=== PATIENT | female | born 1965 | race Caucasian/White ===

== ENCOUNTER 2024-02-11 20:37 | Inpatient (IN) | payer OTHER, SELFPAY ==
--- NOTE | ~2024-02-11 | CT_ITS ---
EXAMINATION: CT HEAD WITHOUT CONTRAST (STROKE PROTOCOL) CLINICAL INFORMATION: Stroke protocol. AMS. COMPARISON: Previous images at [facility] and not available for comparison. TECHNIQUE: Contiguous axial imaging was performed from the skull base to vertex without intravenous administration of contrast. This CT examination was performed using dose optimization techniques as appropriate, variously including the following: *Automated exposure control *Adjustment of mA and/or kV according to patient size (this includes techniques or standardized protocols for targeted exams where dose is matched to indication/reason for exam; i.e. extremities or head) *Use of iterative reconstruction technique DLP: 860 mGy-cm FINDINGS: There is no acute intra-axial, extra axial bleed, masses or midline shift. There is a right frontal lobe deep white matter edema suspicious for underlying lesion. A ischemic event is considered less likely. The ruiz to white matter differentiation is maintained normal. No midline shift. The lateral ventricles are symmetrical in size but moderately enlarged. There is anterior falx calcification present. Bone windows reveal no calvarial abnormality. There is no scalp soft tissue abnormality. Bilateral paranasal sinuses and mastoid air cells are well-aerated. The soft tissues are unremarkable. CT/CT head for stroke IMPRESSION: 1. Right frontal lobe deep white matter edema suspicious for underlying lesion. Recommend CT with contrast or/MRI brain with and without contrast for further evaluation. 2. No acute bleed seen. 3. Moderate cerebral volume loss. This critical result was discussed with Dr. Daren Ray at 9:36 PM on 02/11/2024. It was ascertained that the content and urgency of the report was understood at the time of direct communication.
[2024-02-11 20:50] VITALS: BP 144/82; PULSE 86; O2SAT 98
[2024-02-11 20:56] VITALS: BP 144/75; PULSE 77; RESP 17; TEMP 37.7; O2SAT 95
[2024-02-11 20:59] VITALS: BMI 48.8
--- NOTE | 2024-02-11 21:10 | ECG_ITS ---
Test Reason : WEAKNESS Blood Pressure : / mmHG Vent. Rate : 076 BPM Atrial Rate : 076 BPM P-R Int : 168 ms QRS Dur : 104 ms QT Int : 394 ms P-R-T Axes : 053 007 020 degrees QTc Int : 443 ms Normal sinus rhythm Moderate voltage criteria for LVH, may be normal variant ( R in aVL , Hugo product ) Borderline ECG No previous ECGs available Referred By: Flor Mercedes Electronically Signed By:Espinoza Newell
[2024-02-11 21:41] LABS: Glucose, Whole Blood 113 mg/dL (60-115)
--- NOTE | 2024-02-11 21:48 | ED.WEAKNESS ---
HPI - Weakness General Chief complaint: Weakness Stated complaint: weakness Time Seen by Provider: 02/11/24 21:03 History of Present Illness HPI Narrative: Patient is a 58-year-old female with a history of stroke 3 weeks ago. Also worked up for a possible mass. Patient has been on Plavix for the last 3 weeks. Stopped 3 days ago as she was scheduled to get a biopsy done tomorrow. Patient has been noticing over the last 2-3 weeks increasing weakness over the left side. Sliding off from bed. Generalized malaise. Not quite right. Having headaches. Having episodes of nausea vomiting. Patient presented to the emergency department for further evaluation. There is no fever no chills. There is increased weakness on the left side. Patient is from home. Currently not on steroids. Related Data Home Medications ?Medication ?Instructions ?Recorded ?Confirmed atenolol 100 mg tablet 100 mg PO DAILY 02/12/24 02/12/24 atorvastatin 80 mg tablet 80 mg PO DAILY 02/12/24 02/12/24 hydrochlorothiazide 12.5 mg tablet 12.5 mg PO DAILY 02/12/24 02/12/24 Allergies Allergy/AdvReac Type Severity Reaction Status Date / Time No Known Allergies Allergy Verified 02/11/24 21:03 Review of Systems Review of Systems: Positive left-sided weakness Yes all other systems are reviewed and are negative PMFSH Past Medical History Attestation statement: The following information was validated with the patient. Social History Social History Alcohol intake: current Alcohol intake frequency: holidays/special occasions only Smoked in Last 30 Days: No Use of substances other than those prescribed or required for medical reasons: Yes Substance Use Type: Marijuana Substance Use Frequency: Occasionally Advance Directives: No Advance Directives Information Provided: No Patient : No Physical Exam Vital Signs: Vital Signs: Last Vital Signs Temp 99.4 F 02/12/24 00:30 Pulse 75 02/12/24 00:30 Resp 14 02/12/24 00:30 BP 122/63 02/12/24 00:30 Pulse Ox 95 02/12/24 00:30 O2 Del Method Room Air 02/12/24 00:30 BMI result Body Mass Index 48.8 Appearance: Alert. Oriented X3. No acute distress. Eyes: Pupils equal, round and reactive to light. ENT: Pharynx normal. Neck: Normal inspection. Neck supple. No lymph nodes noted. No crepitus CVS: Normal heart rate and rhythm. Pulses normal. Normal S1 and S2 Respiratory: No respiratory distress. Breath sounds normal. No Wheezing. No rales Abdomen: Soft and nontender. No rigidity. No distention. good BS x4 Skin: Skin warm and dry. Normal skin color. Normal skin turgor. Extremities: No lower extremity edema. Neurovascular intact to all extremities. No Lacerations. No Rash. Neuro: Oriented X 3. No motor deficit. No sensory deficit. Moving all extermities. No slurred speech. No drift noted. Medications Administered Discontinued Medications Generic Name Dose Route Start Last Admin Trade Name Freq PRN Reason Stop Dose Admin Ondansetron HCl 4 mg 02/11/24 21:13 02/11/24 22:04 Ondansetron Hcl 4 Mg/2 Ml Vial IVPUSH 02/11/24 21:14 4 mg ONCE ONE Administration Medical Decision Making Medical Decision Making [facility] Narrative: Patient is 58-year-old female with a history of having an intracranial mass. History of having a stroke approximately 3 weeks ago. Currently not on blood thinners patient stopped her Plavix approximately 2 days ago. She is due to get a biopsy of the intracranial mass at [facility]. But now noticing increasing weakness some mild coughing some generalized malaise unable to get up from bed feels like she is sliding off on the left side. CT scan of the head was done. My interpretation showed no bleeding. Radiology's interpretation showed a mass in the right frontal area. Some edema noted. The finding was discussed with patient has no surgical team at [facility]. The PA on-call Moy reviewed the CT scan today compared to the CT scan from 2 weeks ago. It is essentially unchanged. Fell patient does not have an acute neurosurgical issue. Does not want patient to get steroid at this point as patient is due for a biopsy in 2 days. Worry that the steroid would affect possible lymphoma. Patient's feel somewhat warm. Had some coughing nonspecific complaints. COVID test was done. It came back positive. Likely cause of patient's weakness getting worse. Given patient's state patient's hemoglobin is baseline. O2 sat is normal no evidence for hypoglycemia she is vaccinated for COVID. Her chemistry is normal. Her troponin is negative. My interpretation of patient's EKG showed a sinus rhythm heart rate is 80 FL QRS QTC normal no acute ST segment elevation. Had a long discussion with patient. Will admit patient for observation overnight. Although patient is not hypoxic she is very weak she is unable to care for self she is weakness more on left side likely resulting from the COVID and the viral infection. Differential Diagnosis Differential Diagnoses: The differential diagnosis associated with the presentation includes COVID, CVA, UTI Admission/Observation Consideration of admission/observation: Escalation of care including admission/observation considered Consult Healthcare Provider Management of the patient was discussed with: Hospitalist and Diesel Lube Tech (No surgery at [facility]) Lab Data MDM Lab Attestation statement: I reviewed the patient's lab results. 02/11/24 21:55 02/11/24 21:55 Labs: Lab Results 02/11/24 02/11/24 Range/Units 21:38 21:55 WBC 8.3 (4.8-10.8) X10*3/uL RBC 3.95 L (4.20-5.50) X10*6/uL Hgb 11.9 L (12.0-16.0) g/dl Hct 34.3 L (37.0-47.0) % MCV 86.8 (80.0-98.0) fL MCH 30.1 (27.0-33.0) pg MCHC 34.7 (31.0-35.0) g/dl RDW 13.6 (11.0-16.0) % Plt Count 220 (160-400) X10*3/uL MPV 10.4 (9.4-12.3) fL Immature Gran % (Auto) 0.4 (0.0-0.4) % Neut % (Auto) 79.8 H (45-73) % Lymph % (Auto) 8.5 L (20-40) % [place] % (Auto) 10.8 (2-11) % Eos % (Auto) 0.0 (0-4) % Baso % (Auto) 0.5 (0-2) % Lymph # (Auto) 0.7 L (1.2-4.9) X10*3/uL [place] # (Auto) 0.9 (0.1-1.2) X10*3/uL Eos # (Auto) 0.0 (0.0-0.4) X10*3/uL Baso # (Auto) 0.0 (0.0-0.2) X10*3/uL Abs Immat Gran (auto) 0.03 (0.00-0.03) X10*3/uL Absolute Neuts (auto) 6.6 (2.0-8.3) x10*3/uL Absolute Nucleated RBC 0.000 (0.0-0.012) X10*3/uL Nucleated RBC % (auto) 0.0 (0.0-0.2) /100WBC PT 13.6 H (11.1-13.3) SEC INR 1.1 (0.9-1.1) APTT 29.2 (26.0-36.8) SEC Sodium 132 L (135-145) mmol/L Potassium 3.3 (3.3-5.1) mmol/L Chloride 96 (96-108) mmol/L Carbon Dioxide 25 (22-29) mmol/L Anion Gap 14 (12-20) BUN 13 (9-16) mg/dL Creatinine 0.86 (0.5-1.4) mg/dL Estim Creat Clear Calc 99.3 Estimated GFR > 60 POC Glucose 113 (60-115) mg/dL Random Glucose 103 (60-115) mg/dL Calcium 9.5 (8.4-10.2) mg/dL Total Creatine Kinase 102 (26-140) U/L Troponin I High Sens 5.2 (<3.5-17.0) ng/L Influenza Type A (PCR) NEGATIVE (Negative) Influenza Type B (PCR) NEGATIVE (Negative) RSV RNA Qual (PCR) NEGATIVE (Negative) SARS-CoV-2 RNA (RT-PCR) POSITIVE A (Negative) S. pyogenes GrpA KENIA Negative (Negative) Independent Interpretation I performed an independent interpretation of an: EKG (Please see above), Plain X-Ray and CT Scan (No bleeding) Radiology Impression Discussion of test interpretation with radiology: I have reviewed the radiologist's reading. Independent Historian Clinical information obtained from an independent historian. History obtained from or confirmed by: Spouse Chronic Conditions Patient?s care impacted by: Hypertension History of brain tumor history of CVA Discharge Plan Discharge Clinical Impression: COVID, Acute CVA (cerebrovascular accident) Patient Disposition: Admitted As Inpatient
[2024-02-11 22:01] LABS: MANUAL DIFF FLAG NO
[2024-02-11 22:03] LABS: Basophils Percent Auto 0.5 % (0-2); Hematocrit 34.3 % (37.0-47.0); Hemoglobin 11.9 g/dl (12.0-16.0); Imm Gran Abs Auto 0.03 X10*3/uL (0.00-0.03); Imm Gran Pct Auto 0.4 % (0.0-0.4); Lymphocytes Absolute Auto 0.7 X10*3/uL (1.2-4.9); Lymphocytes Percent Auto 8.5 % (20-40); Mean Corpuscular HGB Conc 34.7 g/dl (31.0-35.0); Mean Corpuscular Hemoglobin 30.1 pg (27.0-33.0); Mean Corpuscular Volume 86.8 fL (80.0-98.0); Mean Platelet Volume 10.4 fL (9.4-12.3); Monocytes Absolute Auto 0.9 X10*3/uL (0.1-1.2); Monocytes Percent Auto 10.8 % (2-11); Neutrophils Absolute Auto 6.6 x10*3/uL (2.0-8.3); Neutrophils Percent Auto 79.8 % (45-73); Platelet Count 220 X10*3/uL (160-400); Red Blood Count 3.95 X10*6/uL (4.20-5.50); Red Cell Distribution Width 13.6 % (11.0-16.0); White Blood Count 8.3 X10*3/uL (4.8-10.8)
[2024-02-11] MEDS: ondansetron HCL 4 MG/2 ML VIAL IVPUSH (22:04)
[2024-02-11 22:09] LABS: IDNOW Serial# 58CA691E; Strep A Nucleic Acid Negative (Negative)
[2024-02-11 22:10] LABS: INTERNATIONAL NORM RATIO 1.1 (0.9-1.1); Prothrombin Time 13.6 SEC (11.1-13.3)
[2024-02-11 22:13] LABS: Partial Thromboplastin Time 29.2 SEC (26.0-36.8); Stroke Lab Use COMPLETE
[2024-02-11 22:20] LABS: Anion Gap 14 (12-20); Blood Urea Nitrogen 13 mg/dL (9-16); Calcium 9.5 mg/dL (8.4-10.2); Carbon Dioxide 25 mmol/L (22-29); Chloride 96 mmol/L (96-108); Creatinine Clr Calc Pharmacy 99.3; Estimated Glomerular Filt Rate > 60; Glucose Random 103 mg/dL (60-115); Potassium 3.3 mmol/L (3.3-5.1); Sodium 132 mmol/L (135-145)
[2024-02-11 22:26] LABS: Troponin-I High Sensitivity 5.2 ng/L (<3.5-17.0)
[2024-02-11 22:39] LABS: Influenza A PCR NEGATIVE (Negative); Influenza B PCR NEGATIVE (Negative); Resp Syncy Virus RNA Qual PCR NEGATIVE (Negative); SARS COV2 PCR INHOUSE POSITIVE (Negative)
[2024-02-12 00:30] VITALS: BP 122/63; PULSE 75; RESP 14; TEMP 37.4; O2SAT 95
--- NOTE | 2024-02-12 01:08 | P.HPHOSP_ITS ---
History of Present Illness Date of Service: 02/12/24 Attending physician on admission: Edwin Mendoza Chief Complaint: Worsening left-sided weakness Corine Macedo 58 years old woman with past medical history significant for morbid obesity, essential hypertension and hyperlipidemia was brought to the ED via EMS due to worsening left-sided weakness to the point that now she is dragging her left leg. She also complained of mild headache. She has been vomiting but she attributes did to the ambulance ride. Denied acute visual disturbances, tingling or dizziness. She did not report any acute speech difficulty. She was recently prescribed to take Plavix and aspirin but stopped it 2 days ago and she is going to undergo brain biopsy. According to patient, about 3 weeks ago, she was recently diagnosed with stroke and was found to have a brain tumor at [facility] and scheduled to have a biopsy this Monday. Patient did not report any acute cardiopulmonary, genitourinary or gastrointestinal symptoms (except for nausea and vomiting). Patient denied tobacco smoking, alcohol abuse or illicit drug use. In the ED, she was found to have normal vital signs. CBC is remarkable for anemia, 11.9. There is no leukocytosis and platelets are normal. There is hyponatremia 132. Other electrolytes are normal. Renal renal function is normal and troponin is negative. Head CT scan without contrast showed right frontal lobe deep white matter edema suspicious for underlying lesion. There is no intracranial bleeding. ECG showed normal sinus rhythm without ischemic changes. Viral testing is positive for COVID-19. ED tx: Zofran 4 mg IV. Decadron 10 mg IV. Review of Systems 2 Review of Systems: All 12 systems were reviewed and normal except as noted in HPI. [facility] Medical History (Updated 02/12/24 @ 01:35 by Edwin Mendoza MD) Brain tumor Hyperlipidemia Essential hypertension Morbid obesity Social History Alcohol intake: current Alcohol intake frequency: holidays/special occasions only Smoked in Last 30 Days: No Use of substances other than those prescribed or required for medical reasons: Yes Substance Use Type: Marijuana Substance Use Frequency: Occasionally Advance Directives: No Advance Directives Information Provided: No Patient : No Meds Allergies Allergy/AdvReac Type Severity Reaction Status Date / Time No Known Allergies Allergy Verified 02/11/24 21:03 Active Medications: Current Medications Acetaminophen (Acetaminophen 325 Mg Tablet) 975 mg PO Q6H PRN PRN Reason: mild pain, headache or fever Atenolol (Atenolol 100 Mg Tablet) 100 mg PO DAILY [facility]; Protocol Atorvastatin Calcium (Atorvastatin Calcium 80 Mg Tablet) 80 mg PO DAILY [facility] Hydrochlorothiazide (Hydrochlorothiazide 12.5 Mg Tablet) 12.5 mg PO DAILY [facility]; Protocol Sodium Chloride (Ns) 500 mls @ 500 mls/hr IV .Q1H [facility] Stop: 02/12/24 01:44 Ondansetron HCl (Ondansetron Hcl 4 Mg/2 Ml Vial) 4 mg IVPUSH Q4H PRN PRN Reason: Nausea and Vomiting Sodium Chloride (0.9 % Sodium Chloride Flush 3 Ml Syringe) 3 ml IVFLUSH QSHIFT [facility] Home Medications ?Medication ?Instructions ?Recorded ?Confirmed ?Last Taken ?Type atenolol 100 mg tablet 100 mg PO DAILY 02/12/24 02/12/24 Unknown History atorvastatin 80 mg tablet 80 mg PO DAILY 02/12/24 02/12/24 Unknown History hydrochlorothiazide 12.5 mg tablet 12.5 mg PO DAILY 02/12/24 02/12/24 Unknown History Physical Exam 2 Vital Signs and Narrative: Vital Signs: Last Vital Signs Temp 99.4 F 02/12/24 00:30 Pulse 75 02/12/24 00:30 Resp 14 02/12/24 00:30 BP 122/63 02/12/24 00:30 Pulse Ox 95 02/12/24 00:30 O2 Del Method Room Air 02/12/24 00:30 BMI result Body Mass Index 48.8 Results Labs 02/11/24 21:55 02/11/24 21:55 Labs: Laboratory Results - last 24 hr 02/11/24 02/11/24 21:38 21:55 MCV 86.8 MCH 30.1 MCHC 34.7 RDW 13.6 Plt Count 220 MPV 10.4 Immature Gran % (Auto) 0.4 Neut % (Auto) 79.8 H Lymph % (Auto) 8.5 L [place] % (Auto) 10.8 Eos % (Auto) 0.0 Baso % (Auto) 0.5 Lymph # (Auto) 0.7 L [place] # (Auto) 0.9 Eos # (Auto) 0.0 Baso # (Auto) 0.0 Abs Immat Gran (auto) 0.03 Absolute Neuts (auto) 6.6 Absolute Nucleated RBC 0.000 Nucleated RBC % (auto) 0.0 PT 13.6 H INR 1.1 APTT 29.2 Anion Gap 14 Estim Creat Clear Calc 99.3 Estimated GFR > 60 POC Glucose 113 Random Glucose 103 Calcium 9.5 Total Creatine Kinase 102 Troponin I High Sens 5.2 Influenza Type A (PCR) NEGATIVE Influenza Type B (PCR) NEGATIVE RSV RNA Qual (PCR) NEGATIVE SARS-CoV-2 RNA (RT-PCR) POSITIVE A S. pyogenes GrpA KENIA Negative Imaging Radiologist's Impressions: Impressions Head CT 02/11/24 21:18 IMPRESSION: 1. Right frontal lobe deep white matter edema suspicious for underlying lesion. Recommend CT with contrast or/MRI brain with and without contrast for further evaluation. 2. No acute bleed seen. 3. Moderate cerebral volume loss. This critical result was discussed with Dr. Daren Ray at 9:36 PM on 02/11/2024. It was ascertained that the content and urgency of the report was understood at the time of direct communication. Assessment and Plan (1) COVID: Status: Acute (2) Left-sided weakness: Status: Acute (3) Nausea and vomiting: Qualifiers: Vomiting type: unspecified Qualified Code(s): R11.2 - Nausea with vomiting, unspecified Status: Acute Plan Corine Macedo 58 y/o woman admitted with: * Worsening left-sided weakness likely secondary to brain mass. Keeping observation. Neuro checks. Oncology and Neurology consult. According to ED provider case has been discussed with neurosurgery service at [facility] (ANUEL Gallardo; patient's neurosurgeon is Dr. Lilly) and no surgical interventions or medication recommended given. Brain biopsy might be delayed as the patient is now COVID positive. * Nausea and vomiting, motion sickness while gettting her ride in the ambulance (no symptoms prior to this). Zofran IV as needed. Gentle hydration. * Mild hyponatremia. Likely secondary to above. Gentle IV fluids. Continue to monitor Na+ level. * COVID positive. No respiratory issues. * Essential hypertension. Continue atenolol. * Hyperlipidemia. Continue statin (pt hasn't started yet but it has been prescribed). * Stroke, recent diagnosis. Plavix and aspirin on hold due to plan brain biopsy. Continue statin. * Morbid obesity. BMI 48.8 kg/m2. Weight loss. Code status: Full DVT prophylaxis: SCDs Quality Stroke Does the patient have a stroke diagnosis?: No VTE Prior VTE?: No VTE Risk Level:: Medical - moderate - high VTE Device Contraindication: N/A - Device Ordered VTE Drug Contraindication: Treatment Not Indicated
[2024-02-12] MEDS: Acetaminophen 325 MG TABLET 975 MG PO ×3 (01:18→21:05)
[2024-02-12] MEDS: 0.9 % Sodium Chloride 500 ML IV (01:21)
--- NOTE | 2024-02-12 04:18 | PC.NURSE ---
COVID +, weak on L side. purewick in place pt unsure if she will use it, may ask for help to commode instead. resting comfortably, mild headache
[2024-02-12 05:50] VITALS: PULSE 66
[2024-02-12 05:50] LABS: Basophils Percent Auto 0.4 % (0-2); Eosinophils Percent Auto 0.1 % (0-4); Hematocrit 32.5 % (37.0-47.0); Hemoglobin 11.2 g/dl (12.0-16.0); Imm Gran Abs Auto 0.03 X10*3/uL (0.00-0.03); Imm Gran Pct Auto 0.4 % (0.0-0.4); Lymphocytes Absolute Auto 1.6 X10*3/uL (1.2-4.9); Lymphocytes Percent Auto 20.9 % (20-40); MANUAL DIFF FLAG NO; Mean Corpuscular HGB Conc 34.5 g/dl (31.0-35.0); Mean Corpuscular Hemoglobin 30.3 pg (27.0-33.0); Mean Corpuscular Volume 87.8 fL (80.0-98.0); Mean Platelet Volume 10.9 fL (9.4-12.3); Monocytes Absolute Auto 0.8 X10*3/uL (0.1-1.2); Monocytes Percent Auto 11.3 % (2-11); Neutrophils Percent Auto 66.9 % (45-73); Platelet Count 188 X10*3/uL (160-400); Red Cell Distribution Width 13.8 % (11.0-16.0); White Blood Count 7.4 X10*3/uL (4.8-10.8)
--- NOTE | 2024-02-12 06:16 | PC.NURSE ---
critical lab, K 2.9. aware
[2024-02-12 06:20] LABS: Anion Gap 15 (12-20); Blood Urea Nitrogen 13 mg/dL (9-16); Calcium 8.8 mg/dL (8.4-10.2); Carbon Dioxide 23 mmol/L (22-29); Chloride 97 mmol/L (96-108); Creatinine Clr Calc Pharmacy 98.2; Estimated Glomerular Filt Rate > 60; Glucose Random 77 mg/dL (60-115); Potassium 2.9 mmol/L (3.3-5.1); Sodium 132 mmol/L (135-145)
[2024-02-12] MEDS: Potassium Chloride Packet 20 MEQ PACKET 40 MEQ PO (06:29)
[2024-02-12] MEDS: atenoloL 100 MG TABLET PO (07:27)
[2024-02-12] MEDS: Atorvastatin Calcium 80 MG TABLET PO (07:27)
[2024-02-12] MEDS: hydroCHLOROthiazide 12.5 MG TABLET PO (07:27)
[2024-02-12] MEDS: 0.9 % Sodium Chloride Flush 3 ML SYRINGE IVFLUSH ×2 (07:28→14:52)
[2024-02-12 07:30] VITALS: BP 127/66; PULSE 70; RESP 20; TEMP 37; O2SAT 97
--- NOTE | 2024-02-12 07:43 | PC.NURSE ---
patient awake, alert and oriented. respirations even and unlabored. repositioned in bed, medicated per the MAR. call clinton within reach.
[2024-02-12 09:25] LABS: Potassium 3.5 mmol/L (3.3-5.1)
--- NOTE | 2024-02-12 09:37 | MHC.CM.PN ---
Katerina 02/12/24, Pt lives with her , she will complete HCP form here naming him. She does not currently have home care services, and would like to have help at home. Task submitted for [facility]. PCP: Cathryn Quinones, in [facility]. DCP is home with services. CM to follow and assist with planning needs.
--- NOTE | 2024-02-12 10:23 | PHA.MEDREC ---
Addendum entered by Amina Salgado 02/12/24 10:36: With Clopidigrel 75mg tabs, the patient was instructed to stop the medications 7 days prior to having the biopsy. Also with the patient taking the atorvastatin 40mg the patient was taking two 40mg tabs for the total of 80mg's daily. Original Note: Pharmacy Consult ? Medication Reconciliation Pharmacy has completed the medication reconciliation. Patient was taking Clopidigrel 75mg tabs and due to a biopsy she was going to receive she stopped them 02/09/24. Also patient was recently changed from atorvastatin 40mg to atorvastatin 80mg. Patient had not picked up new script for the 80mg and was using the rest of the 40mg tabs up and ran out 02/09/24.
--- NOTE | 2024-02-12 10:49 | P.CNNE_ITS ---
History of Present Illness Data of Consult Service Date: 02/12/24 Primary Care Provider: Unknown Physician HPI Reason for consult: Brain lesion 58 years old woman who recently started complaining of left-sided numbness and was diagnosed with a right frontal mass. Apparently she was going to have biopsy for this mass and couple of days but while at home she fell down and was brought to emergency room. She had stopped taking anti-platelet agents in preparation for this biopsy but in emergency room a routine test showed that she was positive for COVID, though she did not have any significant symptoms suggestive of COVID, surgical procedure was postponed. She was in [facility] emergency room now not sure what was going to happen as staff was trying to reach surgical team. There was no evidence of any seizure. Family stated that they could not take care of her at home. Review of Systems 2 Review of Systems: No recent cold or flu-like illness PMFSH Past Medical History Medical History (Updated 02/12/24 @ 01:35 by Edwin Mendoza MD) Brain tumor Hyperlipidemia Essential hypertension Morbid obesity Social History Social History Alcohol intake: current Alcohol intake frequency: holidays/special occasions only Patient Tobacco Use Status: Never used Tobacco Smoked in Last 30 Days: No Use of substances other than those prescribed or required for medical reasons: Yes Substance Use Type: Marijuana Substance Use Frequency: Occasionally Advance Directives: No Advance Directives Information Provided: No Nutrition Risks: No Nutritional Risk Patient : No service: No Meds Allergies Allergy/AdvReac Type Severity Reaction Status Date / Time No Known Allergies Allergy Verified 02/11/24 21:03 Active Medications: Current Medications Acetaminophen (Acetaminophen 325 Mg Tablet) 975 mg PO Q6H PRN PRN Reason: mild pain, headache or fever Last Admin: 02/12/24 01:18 Dose: 975 mg Atenolol (Atenolol 100 Mg Tablet) 100 mg PO DAILY [facility]; Protocol Last Admin: 02/12/24 07:27 Dose: 100 mg Atorvastatin Calcium (Atorvastatin Calcium 80 Mg Tablet) 80 mg PO DAILY [facility] Last Admin: 02/12/24 07:27 Dose: 80 mg Omeprazole (Omeprazole 20 Mg Capsule.Dr) 20 mg PO DAILY@0630 [facility] Ondansetron HCl (Ondansetron Hcl 4 Mg/2 Ml Vial) 4 mg IVPUSH Q4H PRN PRN Reason: Nausea and Vomiting Sodium Chloride (0.9 % Sodium Chloride Flush 3 Ml Syringe) [facility] Last Admin: 02/12/24 07:28 Dose: 3 ml Home Medications ?Medication ?Instructions ?Recorded ?Confirmed ?Last Taken ?Type acetaminophen 650 mg 650 mg PO QD-BID PRN Pain 02/12/24 02/12/24 Unknown History tablet,extended release (Tylenol Arthritis Pain) atenolol 100 mg tablet 100 mg PO DAILY 02/12/24 02/12/24 Unknown History atorvastatin 80 mg tablet 80 mg PO DAILY 02/12/24 02/12/24 02/09/24 History bupropion HCl 300 mg 24 hr tablet, 300 mg PO DAILY 02/12/24 02/12/24 Unknown History extended release clopidogrel 75 mg tablet 75 mg PO DAILY 02/12/24 02/12/24 02/09/24 History hydrochlorothiazide 12.5 mg tablet 12.5 mg PO DAILY 02/12/24 02/12/24 Unknown History irbesartan 300 mg tablet 300 mg PO DAILY 02/12/24 02/12/24 Unknown History omeprazole 20 mg capsule,delayed 20 mg PO DAILY 02/12/24 02/12/24 Unknown History release Physical Exam 2 Vital Signs: Vital Signs: Last Vital Signs Temp 99.4 F 02/12/24 00:30 Pulse 70 02/12/24 07:30 Resp 20 02/12/24 07:30 BP 127/66 02/12/24 07:30 Pulse Ox 97 02/12/24 07:30 O2 Del Method Room Air 02/12/24 07:30 BMI result Body Mass Index 48.8 Neuro: Other: She is alert and awake with normal spontaneity of speech fluency comprehension and affect. Face is symmetrical. There is mild left hemiparesis with left extensor plantar. Results Labs 02/12/24 05:00 02/12/24 09:11 Labs: Short CBC 02/11/24 02/12/24 Range/Units 21:55 05:00 WBC 8.3 7.4 (4.8-10.8) X10*3/uL Hgb 11.9 L 11.2 L (12.0-16.0) g/dl Hct 34.3 L 32.5 L (37.0-47.0) % Plt Count 220 188 (160-400) X10*3/uL BMP 02/11/24 02/12/24 02/12/24 21:55 05:00 09:11 Sodium 132 L 132 L Potassium 3.3 2.9 L* 3.5 D Chloride 96 97 Carbon Dioxide 25 23 BUN 13 13 Creatinine 0.86 0.87 Calcium 9.5 8.8 D Cardiac Enzymes 02/11/24 Range/Units 21:55 Total Creatine Kinase 102 (26-140) U/L Noncontrast head CT revealed a mixed density right frontal mass suggestive of vasogenic edema. Assessment and Plan (1) Left-sided weakness: Status: Acute 58 years old woman with new diagnosis of right frontal mass, which was going to be biopsied in couple of days but she fell at home and was brought to emergency room. Routine COVID test was positive and probably surgery has been postponed. Her surgeon told her that they did not want to treat her with prednisone until this biopsy was done. My recommendation would be to contact the surgical team and asked about definitive plan. In the meantime PT OT consultation is recommended to figure out right course of action and place for her until this procedure is done and proper diagnosis is made. For now, I would hold prednisone or any other specific medicine. Anti-platelet agents not require at this time. Procedures Date of Service Date of Service: 02/12/24
--- NOTE | 2024-02-12 11:24 | PC.NURSE ---
patient had purewick in place, unable to void at this time. three person assist onto the commode. left sided weakness from previous stroke
[2024-02-12] MEDS: Potassium Chloride ER 20 MEQ TAB.ER.PRT 40 MEQ PO (11:48)
[2024-02-12 12:01] LABS: Appearance Urine Clear; Color Urine Yellow; Glucose Urine UA Negative (Negative); Leukocyte Esterase Urine Negative (Negative); Nitrite Urine Negative (Negative); Specific Gravity - Urine 1.015 (1.005-1.025); Urine Blood Negative (Negative); Urine Ketones Negative (Negative); Urine Protein Negative (Neg-Trace)
--- NOTE | 2024-02-12 12:01 | PC.NURSE ---
medicated per the MAR, patient assisted back into bed. approx 400mL urine output.
[2024-02-12 12:04] LABS: Bacteria Urine None Seen (None Seen); Hyaline Casts Urine 0-2 /LPF (0-2); RBC Urine 0-2 /HPF (0-2); Squamous Epithelial Cell Urine 0-2 /HPF (0-2); WBC Urine 0-5 /HPF (0-5)
--- NOTE | 2024-02-12 14:29 | P.EN_ITS ---
Event Note Date of Service: 02/12/24 Event Note: 58-year-old female patient with past medical history of hypertension, hyperlipidemia recently diagnosed to have right frontal lobe mass, scheduled to undergo a brain biopsy by on 02/13 presented to [facility] due to worsening left-sided weakness, with difficulty in ambulation and dragging her left leg associated with mild headache she denied associated visual symptoms, speech impairment in the emergency room head CT without contrast showed right frontal lobe deep white matter edema suspicious for underlying lesion, Chip use unremarkable viral testing was positive for COVID-19 At present patient continued to have left-sided weakness she denies headache no nausea no vomiting or dizziness MRI brain report reviewed from [facility] [place] that showed a lobular intra-axial enhancing mass within the right frontal lobe with surrounding edema and mild mass affect , concerning for highly cellular/high-grade tumor differential included lymphoma and glioblastoma, correlation with tissue diagnosis is recommended Placed a phone call to doctors [facility] office and left a message to discuss plan for biopsy Case discussed with neurologist Dr. Ruiz will hold aspirin, Plavix and steroids Avoid hypotension Patient seen by Physical therapy they recommend acute rehab. Time Spent With Patient Time: Total time managing care of this patient today ____ minutes.
[2024-02-12 14:53] VITALS: BP 114/51; PULSE 67; RESP 18; TEMP 36.9; O2SAT 95
--- NOTE | 2024-02-12 16:50 | P.CNHO_ITS ---
Subjective - Subjective Chief complaint: Consult for: Brain tumor. Patient: new to practice Consult date: 02/12/24 Requesting Physician: Janette Primary Care Provider: Unknown Physician Family Provider: Unknown. Medical Summary: DIAGNOSIS: NEW BRAIN TUMOR. HPI - Consult Narrative Reason for consult: Consult for: Brain tumor. Narrative: Corine Macedo is a 58 year old unfortunately lady admitted after a fall. She was brought to the ED via EMS due to worsening left-sided weakness, to the extent that she was dragging her left leg. She also complained of mild headache. She has had vomiting but she attributed did to the ambulance ride. Denied acute visual disturbances, tingling or dizziness. No acute speech difficulty. She was recently prescribed Plavix and aspirin but stopped it 2 days ago as she was supposed to undergo brain biopsy. According to patient, about 3 weeks ago, she was diagnosed with a stroke . Was actually found to have a brain tumor. This was at [facility]. She was scheduled to have a biopsy this Monday. She did not report any acute cardiopulmonary, genitourinary or gastrointestinal symptoms. (except for nausea and vomiting). Patient denied tobacco smoking, alcohol abuse or illicit drug use. Here, she was found to have normal vital signs. CBC is remarkable for anemia, 11.9. There is no leukocytosis and platelets are normal. There is hyponatremia 132. Other electrolytes are normal. Renal renal function is normal and troponin is negative. Head CT scan without contrast showed: 1. Right frontal lobe deep white matter edema suspicious for underlying lesion. Recommend CT with contrast or/MRI brain with and without contrast for further evaluation. 2. No acute bleed seen. 3. Moderate cerebral volume loss. ECG showed normal sinus rhythm without ischemic changes. Viral testing is positive for COVID-19. She was given: Zofran 4 mg IV. Decadron 10 mg IV. MRI brain report reviewed from [facility] that showed: A lobular intra-axial enhancing mass within the right frontal lobe with surrounding edema and mild mass affect , concerning for highly cellular/high- grade tumor differential included lymphoma and glioblastoma, correlation with tissue diagnosis is recommended. Review of Systems 2 Review of Systems: All 12 systems were reviewed and normal except as noted in HPI. [facility] Medical History: Essential hypertension Morbid obesity Brain tumor Hyperlipidemia Social History: Alcohol intake: current Alcohol intake frequency: holidays/special occasions only Smoked in Last 30 Days: No Use of substances other than those prescribed or required for medical reasons: Yes Substance Use Type: Marijuana Substance Use Frequency: Occasionally Review of Systems - Constitutional Reports system reviewed and no additional complaints, except as documented, Reports fatigue, Reports lack of energy, Reports malaise, Reports poor appetite, Reports weight loss - Eyes Reports system reviewed and no additional complaints, except as documented - ENT Reports system reviewed and no additional complaints, except as documented - Cardiovascular Reports system reviewed and no additional complaints, except as documented - Respiratory Reports no additional respiratory complaints - Gastrointestinal Reports system reviewed and no additional complaints, except as documented - Genitourinary Reports no additional female genitourinary complaints - Musculoskeletal Reports system reviewed and no additional complaints, except as documented - Integumentary/Breasts Skin/Breast: Reports no additional skin complaints - Neurologic Reports system reviewed and no additional complaints, except as documented - Psychiatric Reports system reviewed and no additional complaints, except as documented - Endocrine Reports no additional endocrine complaints - Hematologic/Lymphatic Reports system reviewed and no additional complaints, except as documented - Allergic/Immunologic Reports system reviewed and no additional complaints, except as documented Oncology Screenings - ECOG Performance Status ECOG Performance Status: 2 [facility] Medical History: Medical History (Last Reviewed 02/13/24 @ 09:21 by MARY Gross) Brain tumor Essential hypertension Hyperlipidemia Morbid obesity Functional capacity: wheelchair bound Social History: Social History (Last Reviewed 02/11/24 @ 21:50 by Flor Mercedes MD) Living Situation History: Household Members: None Housing: Apartment Do you presently have visiting nurse or other home services: No Alcohol History Details: 1. How often do you have a drink containing alcohol?: b. Monthly or less AUDIT-C Alcohol total score: 1 Currently Displaying Signs/Symptoms of Alcohol Withdrawal: No Tobacco History: Patient Tobacco Use Status: Never used Tobacco Smoked in Last 30 Days: No Substance Use History: Use of substances other than those prescribed or required for medical reasons : Yes Substance Use Type: Marijuana Substance Use Frequency: Occasionally Last Used Substance: Days (ago) Currently Displaying Signs/Symptoms of Drug Intoxication Withdrawal: No Any prior treatment program specific to substance use: No Domestic Abuse History: Have you been hit, kicked, punched, or otherwise hurt by someone within the past year? If so, by whom?: No Do you feel safe in your current relationship?: Yes Is there a partner from a previous relationship who is making you feel unsafe now?: No Are you made to feel afraid or neglected: No Advance Directives: Advance Directives: No Advance Directives Information Provided: No Homicidal Assessment: Do you have a plan to hurt others: No Plan Nutrition Assessment: Recently lost weight without trying: No Eating poorly because of decreased appetite: No Nutrition Risks: No Nutritional Risk Patient : No : No Poor oral hygiene: No Occupation Assessmet: service: No Home Medications and Allergies Current Medications: Current Medications Acetaminophen (Acetaminophen 325 Mg Tablet) 975 mg PO Q6H PRN PRN Reason: mild pain, headache or fever Last Admin: 02/12/24 11:48 Dose: 975 mg Atenolol (Atenolol 100 Mg Tablet) 100 mg PO DAILY [facility]; Protocol Last Admin: 02/12/24 07:27 Dose: 100 mg Atorvastatin Calcium (Atorvastatin Calcium 80 Mg Tablet) 80 mg PO DAILY [facility] Last Admin: 02/12/24 07:27 Dose: 80 mg Omeprazole (Omeprazole 20 Mg Capsule.Dr) 20 mg PO DAILY@0630 [facility] Ondansetron HCl (Ondansetron Hcl 4 Mg/2 Ml Vial) 4 mg IVPUSH Q4H PRN PRN Reason: Nausea and Vomiting Sodium Chloride (0.9 % Sodium Chloride Flush 3 Ml Syringe) [facility] Last Admin: 02/12/24 14:52 Dose: 3 ml Home Medications ?Medication ?Instructions ?Recorded ?Confirmed ?Type acetaminophen 650 mg 650 mg PO QD-BID PRN Pain 02/12/24 02/12/24 History tablet,extended release (Tylenol Arthritis Pain) atenolol 100 mg tablet 100 mg PO DAILY 02/12/24 02/12/24 History atorvastatin 80 mg tablet 80 mg PO DAILY 02/12/24 02/12/24 History bupropion HCl 300 mg 24 hr tablet, 300 mg PO DAILY 02/12/24 02/12/24 History extended release clopidogrel 75 mg tablet 75 mg PO DAILY 02/12/24 02/12/24 History hydrochlorothiazide 12.5 mg tablet 12.5 mg PO DAILY 02/12/24 02/12/24 History irbesartan 300 mg tablet 300 mg PO DAILY 02/12/24 02/12/24 History omeprazole 20 mg capsule,delayed 20 mg PO DAILY 02/12/24 02/12/24 History release Allergies Allergy/AdvReac Type Severity Reaction Status Date / Time No Known Allergies Allergy Verified 02/11/24 21:03 Physical Exam Vital signs: Vital Signs Temp 98.5 F 02/12/24 14:53 Pulse 67 02/12/24 14:53 Resp 18 02/12/24 14:53 BP 114/51 L 02/12/24 14:53 Pulse Ox 95 02/12/24 14:53 O2 Del Method Room Air 02/12/24 14:53 Intake & Output 02/11/24 02/12/24 02/12/24 18:59 06:59 18:59 Intake Total 500 / 500 Balance 500 / 500 Intake: Intake, IV Amount 500 / 500 0.9 % Sodium Chloride 500 ml @ 500 / 500 500 mls/hr IV .Q1H SAIDA Rx#: [id number] Other: Weight 137.2 kg Weight 137.2 kg - Constitutional Present: moderate distress - Routine HEENT Exam Head: Present: normal inspection ENT: Present: mucous membranes moist - Routine Neck Exam Present: supple - Routine Respiratory Exam Present: CTAB - Routine Cardiovascular Exam Cardiovascular: Present: RRR, S1, S2 - Routine Abdominal Exam Present: soft, nontender - Routine Extremities Exam Present: nontender Hem/Onc Consult Result - Labs CBC & Chem 7: 02/12/24 05:00 02/18/24 07:44 Labs: Short CBC 02/11/24 02/12/24 Range/Units 21:55 05:00 WBC 8.3 7.4 (4.8-10.8) X10*3/uL Hgb 11.9 L 11.2 L (12.0-16.0) g/dl Hct 34.3 L 32.5 L (37.0-47.0) % Plt Count 220 188 (160-400) X10*3/uL BMP 02/11/24 02/12/24 02/12/24 21:55 05:00 09:11 Sodium 132 L 132 L Potassium 3.3 2.9 L* 3.5 D Chloride 96 97 Carbon Dioxide 25 23 BUN 13 13 Creatinine 0.86 0.87 Calcium 9.5 8.8 D Cardiac Enzymes 02/11/24 Range/Units 21:55 Total Creatine Kinase 102 (26-140) U/L Urine 05/20/24 Range/Units 11:54 Urine Color Yellow Urine Appearance Clear Urine pH 6.0 (5.0-9.0) Ur Specific [place] 1.015 (1.005-1.025) Urine Protein Negative (Neg-Trace) mg/dL Urine Glucose (UA) Negative (Negative) mg/dL Assessment and Plan Patient Active problem list reviewed?: Yes (1) Brain tumor Status: Acute Assessment and plan: This is an unfortunate 58-year-old lady who presented with left-sided zaid paresis. She has recently been diagnosed with a brain tumor. MRI brain report reviewed from [facility] that showed: A lobular intra-axial enhancing mass within the right frontal lobe with surrounding edema and mild mass affect, concerning for highly cellular/high- grade tumor differential included lymphoma and glioblastoma, correlation with tissue diagnosis is recommended. Actually the plan was for her to have a brain biopsy done on Monday by Dr. Lilly. She ended up coming in on account of generalized weakness. Here, she has been diagnosed with Covid 19 infection. So biopsy had to be delayed. At this point the aspirin Plavix and steroids are on hold. Since steroids may confound the results, if this is lymphoma, by partially treating it. PLAN: She is currently undergoing symptomatic management. She will go back to [facility] to see the neurosurgeon, for the biopsy, once she recovers here. Thank you for the consult, CC: Dr. hills. Dr. Savage. - Time Spent With Patient Time Spent with Patient (in minutes): 30
[2024-02-12 19:23] VITALS: BP 130/71; PULSE 72; RESP 16; TEMP 37; O2SAT 96
--- NOTE | 2024-02-12 20:19 | MHC.EDTECH ---
Pt assisted on and off bed felder. Full bedding change done, Pt cleaned up and repositioned. Call clinton within reach.
--- NOTE | 2024-02-12 21:08 | PC.NURSE ---
pt swallow screen passed at this time, pt medicated per nov for 6/10 headache, pt requesting tylenol at this time, tolerated well with water.
[2024-02-12 22:03] VITALS: BP 116/57; PULSE 77; RESP 14; TEMP 36.8; O2SAT 94
[2024-02-13] MEDS: 0.9 % Sodium Chloride Flush 3 ML SYRINGE IVFLUSH ×3 (00:51→15:13)
[2024-02-13 01:18] VITALS: BP 115/61; PULSE 67; RESP 12; TEMP 36.7; O2SAT 95
--- NOTE | 2024-02-13 04:57 | MHC.EDTECH ---
Pt assisted on and off bed felder- urinated and had bowel movement. Bedding change done, Pt cleaned and repositioned. Vital signs taken, call clinton within reach.
[2024-02-13 05:03] VITALS: BP 136/82; PULSE 67; RESP 15; TEMP 36.8; O2SAT 93
[2024-02-13] MEDS: Omeprazole 20 MG CAPSULE.DR PO (06:17)
[2024-02-13] MEDS: Acetaminophen 325 MG TABLET 975 MG PO ×2 (06:22→23:24)
[2024-02-13] MEDS: Atorvastatin Calcium 80 MG TABLET PO (09:01)
[2024-02-13] MEDS: atenoloL 100 MG TABLET PO (09:01)
--- NOTE | 2024-02-13 09:45 | PC.NURSE ---
this RN resumed care of pt at 0700. a&ox4. vss and up to date. neuros intact. pt c/o 12/02 headache - recently given prn medication. effectiveness pending. PT evaluated completed. recommendations provided. pt seen by admitting provider/aware of plan of care. no sob/wob noted. respirations even and unlabored. plan of care ongoing. call clinton placed within reach.
[2024-02-13 11:03] VITALS: BP 126/58; PULSE 58; RESP 16; TEMP 36.7; O2SAT 93
--- NOTE | 2024-02-13 11:07 | PC.NURSE ---
vss and up to date. nsr on the phototypesetting equipment monitor. pt requesting cough syrup/some sort of decongestant. admitting provider notified/aware. will administer when able. pt repositioned to comfort. plan of care ongoing. call clinton placed within reach.
[2024-02-13] MEDS: guaiFENesin DM 200/20/10 ML 10 ML SYRUP PO ×2 (12:44→23:24)
--- NOTE | 2024-02-13 13:02 | PC.NURSE ---
pt medicated w/ prn cough syrup. effectiveness pending. pt requesting to speak w/ admitting provider - provider notified.
--- NOTE | 2024-02-13 13:50 | MHC.CM.PN ---
Referrals out for acute rehab, currently waiting to hear if accepted at [facility]. Expanded search to include [facility], CM discussed this with pt and family and asked for their choices. CM will continue to follow and assist with DC planning.
--- NOTE | 2024-02-13 14:13 | HO.PM.IMPN ---
Subjective Subjective Date of Service: 02/13/24 Interval History: Offers no acute complaints has multiple concerns, whether she needs to be on blood thinners or not, should she be on steroids, denies shortness of breath, no cough, no headache, no dizziness, no worsening left-sided weakness tolerating diet, feels uncomfortable in ED bed. Review of Systems All other system reviewed and negative Physical Exam Vital Signs: Vital Signs: Last Vital Signs Temp 98.0 F 02/13/24 11:03 Pulse 58 02/13/24 11:03 Resp 16 02/13/24 11:03 BP 126/58 L 02/13/24 11:03 Pulse Ox 93 02/13/24 11:03 O2 Del Method Room Air 02/13/24 11:03 BMI result Body Mass Index 48.8 Const: Other: General awake alert x3,in no acute distress. Anicteric sclera Neck supple no JVD. CVS regular rate rhythm, Respiratory lungs clear to auscultation, no respiratory distress, no wheeze, no rhonchi. Gastrointestinal abdomen soft, obese, non tender, bowel sounds audible. Extremities no pitting edema. Neuro face symmetrical, speech clear, mild left upper and lower extremity weakness Skin no rash Psych appropriate affect Objective Data Active Medications Acetaminophen (Acetaminophen 325 Mg Tablet) 975 mg PO Q6H PRN PRN Reason: mild pain, headache or fever Last Admin: 02/13/24 06:22 Dose: 975 mg Documented By: AVNI Atenolol (Atenolol 100 Mg Tablet) 100 mg PO DAILY [facility]; Protocol Last Admin: 02/13/24 09:01 Dose: 100 mg Documented By: MARRY Atorvastatin Calcium (Atorvastatin Calcium 80 Mg Tablet) 80 mg PO DAILY [facility] Last Admin: 02/13/24 09:01 Dose: 80 mg Documented By: MARRY Guaifenesin/Dextromethorphan (Guaifenesin Dm 200/20/10 Ml 10 Ml Syrup) 10 ml PO Q6H PRN PRN Reason: cough Last Admin: 02/13/24 12:44 Dose: 10 ml Documented By: MARRY Omeprazole (Omeprazole 20 Mg Capsule.) 20 mg PO DAILY@0630 [facility] Last Admin: 02/13/24 06:17 Dose: 20 mg Documented By: HO.DIONS Ondansetron HCl (Ondansetron Hcl 4 Mg/2 Ml Vial) 4 mg IVPUSH Q4H PRN PRN Reason: Nausea and Vomiting Sodium Chloride (0.9 % Sodium Chloride Flush 3 Ml Syringe) 3 ml IVFLUSH QSHIFT [facility] Last Admin: 02/13/24 09:01 Dose: 3 ml Documented By: MARRY Labs 02/12/24 05:00 02/12/24 09:11 Assessment and Plan (1) Brain tumor: Status: Acute (2) Left-sided weakness: Status: Acute (3) COVID: Status: Acute Plan 58-year-old female patient with past medical history of hypertension, hyperlipidemia recently diagnosed to have right frontal lobe mass, scheduled to undergo a brain biopsy by on 02/13 presented to [facility] due to worsening left-sided weakness, with difficulty in ambulation and dragging her left leg associated with mild headache she denied associated visual symptoms, speech impairment in the emergency room head CT without contrast showed right frontal lobe deep white matter edema suspicious for underlying lesion, Chip use unremarkable viral testing was positive for COVID-19 Acute on chronic left-sided weakness Denies worsening symptoms,no headache,no nausea, no vomiting or dizziness. MRI brain report reviewed from [facility] that showed a lobular intra-axial enhancing mass within the right frontal lobe with surrounding edema and mild mass affect , concerning for highly cellular/high-grade tumor differential included lymphoma and glioblastoma, correlation with tissue diagnosis is recommended Being followed by [facility] Neurosurgery Dr Lilly, called office and left message to discuss plan for biopsy, waiting for call back, patient was scheduled for brain biopsy on 02/[address] Ruiz he recommend to hold aspirin, Plavix and steroids. Recommend outpatient follow-up with Dr. Lilly to reschedule biopsy. Seen by PT they recommend rehab. COVID-19 infection asymptomatic with no hypoxia, supportive care. Hypertension stable BP, continue atenolol, will hold hydrochlorothiazide and Arb losartan Avoid hypotension. Hyperlipidemia continue statin. Morbid obesity recommend low-calorie diet/continue PT. DVT prophylaxis Lovenox. Full code Patient need continued inpatient hospitalization for safe disposition to rehab facility Quality Stroke Does the patient have a stroke diagnosis?: No VTE Prior VTE?: No VTE Risk Level:: Medical - moderate - high VTE Device Contraindication: N/A - Device Ordered VTE Drug Contraindication: Treatment Not Indicated
[2024-02-13] MEDS: Enoxaparin Sodium 40 MG/0.4 ML SYRINGE SUBCUT (15:11)
[2024-02-13 16:02] VITALS: BP 127/62; PULSE 67; RESP 17; O2SAT 95
--- NOTE | 2024-02-13 17:07 | PC.NURSE ---
pt requires 2:1 assist to the commode as pt is extremely unsteady on feet. pt urinated/had large BM into commode. pt verbalizes numbness/tingling in left foot. 2:1 assist needed for pt to get back into bed. pt repositioned to comfort. call clinton placed within reach.
[2024-02-13 20:00] VITALS: BP 111/65; PULSE 66; RESP 18; TEMP 36.8; O2SAT 95
--- NOTE | 2024-02-13 21:49 | PC.NURSE ---
pt A&Ox4, speaking clear full sentences in no apparent distress, able to make needs known. Pt has bed upstairs on [address], waiting for transport to floor.
[2024-02-13 22:47] VITALS: BP 111/65; PULSE 66; RESP 18; TEMP 36.8; O2SAT 95
[2024-02-14] VITALS: BP 110/65; PULSE 63; RESP 20; TEMP 36.2; O2SAT 94
[2024-02-14 03:24] VITALS: BP 127/59; PULSE 69; RESP 20; TEMP 36.3; O2SAT 96
[2024-02-14 07:36] VITALS: BP 127/68; PULSE 64; RESP 20; TEMP 36.1; O2SAT 97
[2024-02-14] MEDS: atenoloL 100 MG TABLET PO (09:27)
[2024-02-14] MEDS: 0.9 % Sodium Chloride Flush 3 ML SYRINGE IVFLUSH ×2 (09:28→15:04)
[2024-02-14] MEDS: Atorvastatin Calcium 80 MG TABLET PO (09:28)
[2024-02-14 11:25] VITALS: BP 125/72; PULSE 60; RESP 20; TEMP 36; O2SAT 95
--- NOTE | 2024-02-14 13:21 | P.PNNE_ITS ---
Subjective Subjective Date of Service: 02/14/24 Interval History: Worsening left-sided weakness with a right parietal mass of mixed density on a noncontrast CT, highly suspicious for a glioblastoma Critical Care Time (minutes): 0 Physical Exam 2 Vital Signs: Vital Signs: Last Vital Signs Temp 96.8 F 02/14/24 11:25 Pulse 60 02/14/24 11:25 Resp 20 02/14/24 11:25 BP 125/72 02/14/24 11:25 Pulse Ox 95 02/14/24 11:25 O2 Del Method Room Air 02/14/24 11:25 BMI result Body Mass Index 48.8 Const: Other: General awake alert x3,in no acute distress. Anicteric sclera Neck supple no JVD. CVS regular rate rhythm, Respiratory lungs clear to auscultation, no respiratory distress, no wheeze, no rhonchi. Gastrointestinal abdomen soft, obese, non tender, bowel sounds audible. Extremities no pitting edema. Neuro face symmetrical, speech clear, mild left upper and lower extremity weakness Skin no rash Psych appropriate affect Neuro: Other: She is alert and awake with normal spontaneity of speech fluency comprehension and affect. Face is symmetrical. There is mild To moderate left hemiparesis with left extensor plantar. Objective Data Labs 02/12/24 05:00 02/12/24 09:11 Progress Note: A&P Assessment and plan (1) Brain tumor: Status: Acute Assessment and Plan: Most likely this is a glioblastoma. Recommend contrast CT of the brain if she cannot have an MRI with and without gadolinium. Decadron 4 mg 3 times a day. Following imaging study she should be referred for for a neurosurgical consultation (2) Left-sided weakness: Status: Acute (3) COVID: Status: Acute Plan 58-year-old female patient with past medical history of hypertension, hyperlipidemia recently diagnosed to have right frontal lobe mass, scheduled to undergo a brain biopsy by on 02/13 presented to [facility] due to worsening left-sided weakness, with difficulty in ambulation and dragging her left leg associated with mild headache she denied associated visual symptoms, speech impairment in the emergency room head CT without contrast showed right frontal lobe deep white matter edema suspicious for underlying lesion, Chip use unremarkable viral testing was positive for COVID-19 Acute on chronic left-sided weakness Denies worsening symptoms,no headache,no nausea, no vomiting or dizziness. MRI brain report reviewed from [facility] that showed a lobular intra-axial enhancing mass within the right frontal lobe with surrounding edema and mild mass affect , concerning for highly cellular/high-grade tumor differential included lymphoma and glioblastoma, correlation with tissue diagnosis is recommended Being followed by [facility] Neurosurgery Dr Lilly, called office and left message to discuss plan for biopsy, waiting for call back, patient was scheduled for brain biopsy on 02/[address] Ruiz he recommend to hold aspirin, Plavix and steroids. Recommend outpatient follow-up with Dr. Lilly to reschedule biopsy. Seen by PT they recommend rehab. COVID-19 infection asymptomatic with no hypoxia, supportive care. Hypertension stable BP, continue atenolol, will hold hydrochlorothiazide and Arb losartan Avoid hypotension. Hyperlipidemia continue statin. Morbid obesity recommend low-calorie diet/continue PT. DVT prophylaxis Lovenox. Full code Patient need continued inpatient hospitalization for safe disposition to rehab facility Time Spent With Patient Time: Total time managing care of this patient today ____ minutes. Procedures Date of Service Date of Service: 02/14/24 Quality Stroke Does the patient have a stroke diagnosis?: No VTE Prior VTE?: No VTE Risk Level:: Medical - moderate - high VTE Device Contraindication: N/A - Device Ordered VTE Drug Contraindication: Treatment Not Indicated
[2024-02-14] MEDS: Acetaminophen 325 MG TABLET 975 MG PO ×2 (15:02→23:45)
[2024-02-14] MEDS: Enoxaparin Sodium 40 MG/0.4 ML SYRINGE SUBCUT (15:02)
[2024-02-14 15:15] VITALS: BP 140/81; PULSE 62; RESP 20; TEMP 36.4; O2SAT 97
--- NOTE | 2024-02-14 15:36 | HO.PM.IMPN ---
Subjective Subjective Date of Service: 02/14/24 Interval History: Offers no acute complaints, no worsening left-sided weakness, no speech impairment no headache no dizziness, no other acute issues overnight. Participated with physical therapy. Review of Systems All other system reviewed and negative. Physical Exam Vital Signs: Vital Signs: Last Vital Signs Temp 97.6 F 02/14/24 15:15 Pulse 62 02/14/24 15:15 Resp 20 02/14/24 15:15 BP 140/81 H 02/14/24 15:15 Pulse Ox 97 02/14/24 15:15 O2 Del Method Room Air 02/14/24 15:15 BMI result Body Mass Index 48.8 Const: Other: General awake alert x3,in no acute distress. Anicteric sclera Neck supple no JVD. CVS regular rate rhythm, Respiratory lungs clear to auscultation, no respiratory distress, no wheeze, no rhonchi. Gastrointestinal abdomen soft, obese, non tender, bowel sounds audible. Extremities no pitting edema. Neuro face symmetrical, speech clear, mild left upper and lower extremity weakness Skin no rash Psych appropriate affect Objective Data Active Medications Acetaminophen (Acetaminophen 325 Mg Tablet) 975 mg PO Q6H PRN PRN Reason: mild pain, headache or fever Last Admin: 02/14/24 15:02 Dose: 975 mg Documented By: BANDAR Atenolol (Atenolol 100 Mg Tablet) 100 mg PO DAILY [facility]; Protocol Last Admin: 02/14/24 09:27 Dose: 100 mg Documented By: BANDAR Atorvastatin Calcium (Atorvastatin Calcium 80 Mg Tablet) 80 mg PO DAILY [facility] Last Admin: 02/14/24 09:28 Dose: 80 mg Documented By: BANDAR Docusate Sodium (Docusate Sodium 100 Mg Capsule) 100 mg PO BEDTIME PRN PRN Reason: constipation Enoxaparin Sodium (Enoxaparin Sodium 40 Mg/0.4 Ml Syringe) 40 mg SUBCUT Q24H [facility] Last Admin: 02/14/24 15:02 Dose: 40 mg Documented By: BANDAR Guaifenesin/Dextromethorphan (Guaifenesin Dm 200/20/10 Ml 10 Ml Syrup) 10 ml PO Q6H PRN PRN Reason: cough Last Admin: 02/13/24 23:24 Dose: 10 ml Documented By: CLOVIS Omeprazole (Omeprazole 20 Mg Capsule.) 20 mg PO DAILY@0630 [facility] Last Admin: 02/14/24 09:07 Dose: Not Given Documented By: BANDAR Non-Admin Reason: prev shift Ondansetron HCl (Ondansetron Hcl 4 Mg/2 Ml Vial) 4 mg IVPUSH Q4H PRN PRN Reason: Nausea and Vomiting Sodium Chloride (0.9 % Sodium Chloride Flush 3 Ml Syringe) 3 ml IVFLUSH QSHIFT [facility] Last Admin: 02/14/24 15:04 Dose: 3 ml Documented By: BANDAR Labs 02/12/24 05:00 02/12/24 09:11 Assessment and Plan (1) Brain tumor: Status: Acute (2) Left-sided weakness: Status: Acute (3) COVID: Status: Acute Plan 58-year-old female patient with past medical history of hypertension, hyperlipidemia recently diagnosed to have right frontal lobe mass, scheduled to undergo a brain biopsy by on 02/13 presented to [facility] due to worsening left-sided weakness, with difficulty in ambulation and dragging her left leg associated with mild headache she denied associated visual symptoms, speech impairment in the emergency room head CT without contrast showed right frontal lobe deep white matter edema suspicious for underlying lesion, Chip use unremarkable viral testing was positive for COVID-19 Acute on chronic left-sided weakness Denies worsening symptoms,no headache,no nausea, no vomiting or dizziness. MRI brain report reviewed from [facility] that showed a lobular intra-axial enhancing mass within the right frontal lobe with surrounding edema and mild mass affect , concerning for highly cellular/high-grade tumor differential included lymphoma and glioblastoma, correlation with tissue diagnosis is recommended Being followed by [facility] Neurosurgery Dr Lilly, called office and spoke with his business services assistant she informed the doctor was aware of patient hospitalization at [place] he is in touch with patient's primary care physician to rescheduled brain biopsy sometime next week Seen by Dr. Ruiz he recommend to hold aspirin, Plavix and steroids. Recommend outpatient follow-up with Dr. Lilly to reschedule biopsy. Seen by PT they recommend rehab. applications engineering manager arranging for safe disposition COVID-19 infection asymptomatic with no hypoxia,cont. supportive care. Hypertension stable BP, continue atenolol, will hold hydrochlorothiazide and irbesartan to avoid hypotension. Hyperlipidemia continue statin. Morbid obesity recommend low-calorie diet/continue PT. Acute hypokalemia resolved. Mild acute hyponatremia stable. DVT prophylaxis Lovenox. Full code Patient need continued inpatient hospitalization for close monitoring of neurological status, and safe disposition to rehab facility. Quality Stroke Does the patient have a stroke diagnosis?: No VTE Prior VTE?: No VTE Risk Level:: Medical - moderate - high VTE Device Contraindication: N/A - Device Ordered VTE Drug Contraindication: Treatment Not Indicated
[2024-02-14 19:22] VITALS: BP 137/88; PULSE 65; RESP 20; TEMP 36.7; O2SAT 95
[2024-02-14] MEDS: guaiFENesin DM 200/20/10 ML 10 ML SYRUP PO (23:46)
[2024-02-15] VITALS: BP 113/74; PULSE 64; RESP 18; TEMP 36.3; O2SAT 97
[2024-02-15 03:35] VITALS: BP 112/73; PULSE 68; RESP 20; TEMP 36.3; O2SAT 98
[2024-02-15] MEDS: Acetaminophen 325 MG TABLET 975 MG PO (06:35)
[2024-02-15] MEDS: guaiFENesin DM 200/20/10 ML 10 ML SYRUP PO ×2 (06:35→23:34)
[2024-02-15] MEDS: Omeprazole 20 MG CAPSULE.DR PO (06:37)
[2024-02-15 08:00] VITALS: BP 147/84; PULSE 62; RESP 18; TEMP 36.3; O2SAT 96
[2024-02-15] MEDS: 0.9 % Sodium Chloride Flush 3 ML SYRINGE IVFLUSH ×2 (09:21)
[2024-02-15] MEDS: atenoloL 100 MG TABLET PO (09:21)
[2024-02-15] MEDS: Atorvastatin Calcium 80 MG TABLET PO (09:21)
[2024-02-15 11:18] VITALS: BP 158/97; PULSE 64; RESP 18; TEMP 36.3; O2SAT 97
--- NOTE | 2024-02-15 13:45 | MHC.CM.PN ---
CM spoke to pt today about returning home with services, she explained that she does not feel this will work and she does not have support at home to assist her. PT is rec acute rehab for her, no accepting [place], [facility] accepting, pending review of her biopsy and oncology plan, which we are waiting to hear from at [facility]. CM will continue to follow for DC needs.
--- NOTE | 2024-02-15 14:39 | HO.PM.IMPN ---
Subjective Subjective Date of Service: 02/15/24 Interval History: Being followed for left-sided weakness/COVID. No new neurological deficit since admission Denies shortness of breath, no cough ,no chest pain. Review of Systems All other system reviewed and negative Physical Exam Vital Signs: Vital Signs: Last Vital Signs Temp 97.4 F 02/15/24 11:18 Pulse 64 02/15/24 11:18 Resp 18 02/15/24 11:18 BP 158/97 H 02/15/24 11:18 Pulse Ox 97 02/15/24 11:18 O2 Del Method Room Air 02/15/24 11:18 BMI result Body Mass Index 48.8 Const: Other: General awake alert x3,in no acute distress. Anicteric sclera Neck supple no JVD. CVS regular rate rhythm, Respiratory lungs clear to auscultation, no respiratory distress, no wheeze, no rhonchi. Gastrointestinal abdomen soft, obese, non tender, bowel sounds audible. Extremities no pitting edema. Neuro face symmetrical, speech clear, mild left upper and moderate lower extremity weakness. Skin no rash Psych appropriate affect Objective Data Active Medications Acetaminophen (Acetaminophen 325 Mg Tablet) 975 mg PO Q6H PRN PRN Reason: mild pain, headache or fever Last Admin: 02/15/24 06:35 Dose: 975 mg Documented By: DAVIN Atenolol (Atenolol 100 Mg Tablet) 100 mg PO DAILY [facility]; Protocol Last Admin: 02/15/24 09:21 Dose: 100 mg Documented By: RASHEED Atorvastatin Calcium (Atorvastatin Calcium 80 Mg Tablet) 80 mg PO DAILY [facility] Last Admin: 02/15/24 09:21 Dose: 80 mg Documented By: RASHEED Docusate Sodium (Docusate Sodium 100 Mg Capsule) 100 mg PO BEDTIME PRN PRN Reason: constipation Enoxaparin Sodium (Enoxaparin Sodium 40 Mg/0.4 Ml Syringe) 40 mg SUBCUT Q24H [facility] Last Admin: 02/14/24 15:02 Dose: 40 mg Documented By: BANDAR Guaifenesin/Dextromethorphan (Guaifenesin Dm 200/20/10 Ml 10 Ml Syrup) 10 ml PO Q6H PRN PRN Reason: cough Last Admin: 02/15/24 06:35 Dose: 10 ml Documented By: DAVIN Omeprazole (Omeprazole 20 Mg Capsule.) 20 mg PO DAILY@0630 [facility] Last Admin: 02/15/24 06:37 Dose: 20 mg Documented By: DAVIN Ondansetron HCl (Ondansetron Hcl 4 Mg/2 Ml Vial) 4 mg IVPUSH Q4H PRN PRN Reason: Nausea and Vomiting Sodium Chloride (0.9 % Sodium Chloride Flush 3 Ml Syringe) 3 ml IVFLUSH QSHIFT [facility] Last Admin: 02/15/24 09:21 Dose: 3 ml Documented By: RASHEED Labs 02/12/24 05:00 02/12/24 09:11 Assessment and Plan (1) Brain tumor: Status: Acute (2) Left-sided weakness: Status: Acute (3) COVID: Status: Acute Plan 58-year-old female patient with past medical history of hypertension, hyperlipidemia recently diagnosed to have right frontal lobe mass, scheduled to undergo a brain biopsy by on 02/13 presented to [facility] due to worsening left-sided weakness, with difficulty in ambulation and dragging her left leg associated with mild headache she denied associated visual symptoms, speech impairment in the emergency room head CT without contrast showed right frontal lobe deep white matter edema suspicious for underlying lesion, Chip use unremarkable viral testing was positive for COVID-19 Acute on chronic left-sided weakness Denies worsening symptoms,no headache,no nausea, no vomiting or dizziness. MRI brain report reviewed from [facility] that showed a lobular intra-axial enhancing mass within the right frontal lobe with surrounding edema and mild mass affect , concerning for highly cellular/high-grade tumor differential included lymphoma and glioblastoma, correlation with tissue diagnosis is recommended Being followed by [facility] Neurosurgery Dr Lilly, called office and spoke with his pizza hut assistant she informed the doctor was aware of patient hospitalization at [place] he is in touch with patient's primary care physician to rescheduled brain biopsy sometime next week Seen by Dr. Ruiz he recommend to hold aspirin, Plavix and steroids. Recommend outpatient follow-up with Dr. Lilly to reschedule biopsy. Seen by PT they recommend acute rehab rehab. Patient very motivated to participate in skilled physical therapy, but noted to have decreased control of left upper extremity/trunk/left lower extremity needs a walker +1 assist to ambulate safely. COVID-19 infection asymptomatic with no hypoxia,cont. supportive care. Hypertension on atenolol, hydrochlorothiazide and irbesartan on hold ,noted to have elevated bp today ,will resume irbesartan BP remains elevated Hyperlipidemia continue statin. Morbid obesity recommend low-calorie diet/continue PT. Acute hypokalemia resolved. Mild acute hyponatremia stable. DVT prophylaxis Lovenox. Full code Patient need continued inpatient hospitalization for close monitoring of neurological status, and safe disposition to rehab facility. Rehab accepting pending review of her biopsy and oncology plan which were waiting to hear from [facility] neurosurgery. Quality Stroke Does the patient have a stroke diagnosis?: No VTE Prior VTE?: No VTE Risk Level:: Medical - moderate - high VTE Device Contraindication: N/A - Device Ordered VTE Drug Contraindication: Treatment Not Indicated
[2024-02-15] MEDS: Enoxaparin Sodium 40 MG/0.4 ML SYRINGE SUBCUT (14:43)
[2024-02-15 20:00] VITALS: BP 149/78; PULSE 64; RESP 20; TEMP 36.6; O2SAT 98
[2024-02-15] MEDS: Melatonin 3 MG TABLET 6 MG PO (23:34)
[2024-02-16] VITALS (8 sets, daily range): BP systolic 112–157; BP diastolic 63–108; PULSE 57–88; RESP 18–20; TEMP 36.1–36.6; O2SAT 94–98
[2024-02-16] MEDS: Omeprazole 20 MG CAPSULE.DR PO (05:46)
[2024-02-16] MEDS: 0.9 % Sodium Chloride Flush 3 ML SYRINGE IVFLUSH ×4 (05:46→22:55)
[2024-02-16] MEDS: Benzonatate 100 MG CAPSULE 200 MG PO ×2 (05:47→22:50)
--- NOTE | 2024-02-16 09:11 | MHC.CM.PN ---
EMR REVIEWED, CM AWAITING TO FIND OUT WHEN PT'S BIOPSY WILL BE SCHEDULED/ONCOLOGY PLAN FOR SNF FACILITIES DON'T WANT TO OFFER PT A BED W/OUT THIS INFORMATION D/T HIGH COST OF [place], CM WILL CONT TO FOLLOW DC NEEDS.
[2024-02-16] MEDS: guaiFENesin DM 200/20/10 ML 10 ML SYRUP PO ×2 (09:51→22:51)
[2024-02-16] MEDS: buPROPion HCl XL 300 MG TAB.ER.24H PO (09:51)
[2024-02-16] MEDS: Atorvastatin Calcium 80 MG TABLET PO (09:51)
[2024-02-16] MEDS: atenoloL 100 MG TABLET PO (09:52)
[2024-02-16] MEDS: Valsartan 160 MG TABLET PO (09:52)
--- NOTE | 2024-02-16 11:02 | MHC.CM.PN ---
EMR REVIEWED, CM MET W/PT TO DISCUSS DISPO, PT AWARE WE NEED TO FIGURE OUT PLAN FOR BIOPSY PRIOR TO FACILITY OFFERING A BED, PT CHEMAARIFIES SHE DOES NOT HAVE AN ONCOLOGIST, SHE HAS A NEUROSURGEON SHE SAW AT [facility] DR. Ring WHO TOLD HER SHE WOULD NEED AN APPT W/HER PRIMARY CARE DOCTOR WHO WILL NEED TO BE MEDICALLY CLEARED PRIOR TO BOOKING AN APPT FOR BIOPSY. PT GOES ON TO REPORT HER PCP DR SIDDIQUI IS OUT OF THE COUNTRY UNTIL 02/25 AND SHE/ WERE WAITING FOR A CALL BACK. CM CONTACTED PCP OFFICE AND FOUND THAT DR VARGAS IS COVERING AND HAS RESPONDED W/IN MESSAGING SYSTEM AND THEY WILL HAVE A NURSE CALL CM BACK W/UPDATE, LEONARDA BARNES UPDATED VIA [employer].
[2024-02-16] MEDS: Throat Lozenge, Medicated LOZENGE 1 LOZENGE MUCOUS MEM (12:36)
--- NOTE | 2024-02-16 14:11 | HO.PM.IMPN ---
Subjective Subjective Date of Service: 02/16/24 Interval History: Being followed for left-sided weakness with a recently diagnosed right cerebral mass, diagnosed to have COVID Noted to have loss of voice, no shortness of breath, no cough, no sore throat, no acute issues overnight. No change in left-sided weakness, no new neurological deficits. Tolerating diet, no headache, no dizziness. Review of Systems All other system reviewed and negative Physical Exam Vital Signs: Vital Signs: Last Vital Signs Temp 97.6 F 02/16/24 08:00 Pulse 57 02/16/24 08:00 Resp 18 02/16/24 08:00 BP 119/85 02/16/24 09:52 Pulse Ox 94 02/16/24 08:00 O2 Del Method Room Air 02/16/24 08:00 BMI result Body Mass Index 48.8 Const: Other: General awake alert x3,in no acute distress. Anicteric sclera Neck supple no JVD. CVS regular rate rhythm, Respiratory lungs clear to auscultation, no respiratory distress, no wheeze, no rhonchi. Gastrointestinal abdomen soft, obese, non tender, bowel sounds audible. Extremities no pitting edema. Neuro face symmetrical, speech clear, mild left upper and mild to moderate lower extremity weakness, left extensor plantar. Skin no rash Psych appropriate affect Objective Data Active Medications Acetaminophen (Acetaminophen 325 Mg Tablet) 975 mg PO Q6H PRN PRN Reason: mild pain, headache or fever Last Admin: 02/15/24 06:35 Dose: 975 mg Documented By: DAVIN Atenolol (Atenolol 100 Mg Tablet) 100 mg PO DAILY [facility]; Protocol Last Admin: 02/16/24 09:52 Dose: 100 mg Documented By: DEBBIE Atorvastatin Calcium (Atorvastatin Calcium 80 Mg Tablet) 80 mg PO DAILY [facility] Last Admin: 02/16/24 09:51 Dose: 80 mg Documented By: DEBBIE Benzocaine (Throat Lozenge, Medicated Lozenge) 1 lozenge MUCOUS MEM Q2H PRN PRN Reason: Sore Throat Last Admin: 02/16/24 12:36 Dose: 1 lozenge Documented By: DEBBIE Benzonatate (Benzonatate 100 Mg Capsule) 200 mg PO TID PRN PRN Reason: Cough Last Admin: 02/16/24 05:47 Dose: 200 mg Documented By: NAOMI Bupropion HCl (Bupropion Hcl Xl 300 Mg Tab.Er.24h) 300 mg PO DAILY [facility] Last Admin: 02/16/24 09:51 Dose: 300 mg Documented By: DEBBIE Docusate Sodium (Docusate Sodium 100 Mg Capsule) 100 mg PO BEDTIME PRN PRN Reason: constipation Enoxaparin Sodium (Enoxaparin Sodium 40 Mg/0.4 Ml Syringe) 40 mg SUBCUT Q24H [facility] Last Admin: 02/15/24 14:43 Dose: 40 mg Documented By: RASHEED Guaifenesin/Dextromethorphan (Guaifenesin Dm 200/20/10 Ml 10 Ml Syrup) 10 ml PO Q6H PRN PRN Reason: cough Last Admin: 02/16/24 09:51 Dose: 10 ml Documented By: DEBBIE Melatonin (Melatonin 3 Mg Tablet) 6 mg PO BEDTIME PRN PRN Reason: Insomnia Last Admin: 02/15/24 23:34 Dose: 6 mg Documented By: NAOMI Omeprazole (Omeprazole 20 Mg Capsule.) 20 mg PO DAILY@0630 [facility] Last Admin: 02/16/24 05:46 Dose: 20 mg Documented By: NAOMI Ondansetron HCl (Ondansetron Hcl 4 Mg/2 Ml Vial) 4 mg IVPUSH Q4H PRN PRN Reason: Nausea and Vomiting Sodium Chloride (0.9 % Sodium Chloride Flush 3 Ml Syringe) 3 ml IVFLUSH QSHIFT [facility] Last Admin: 02/16/24 09:53 Dose: 3 ml Documented By: DEBBIE Valsartan (Valsartan 160 Mg Tablet) 160 mg PO DAILY [facility] Last Admin: 02/16/24 09:52 Dose: 160 mg Documented By: DEBBIE Labs 02/12/24 05:00 02/12/24 09:11 Assessment and Plan (1) Brain tumor: Status: Acute (2) Left-sided weakness: Status: Acute (3) COVID: Status: Acute Plan 58-year-old female patient with past medical history of hypertension, hyperlipidemia recently diagnosed to have right frontal lobe mass, scheduled to undergo a brain biopsy by on 02/13 presented to [facility] due to worsening left-sided weakness, with difficulty in ambulation and dragging her left leg associated with mild headache she denied associated visual symptoms, speech impairment in the emergency room head CT without contrast showed right frontal lobe deep white matter edema suspicious for underlying lesion, Chip use unremarkable viral testing was positive for COVID-19 Acute on chronic left-sided weakness Denies worsening symptoms,no headache,no nausea, no vomiting or dizziness. MRI brain report reviewed from [facility] that showed a lobular intra-axial enhancing mass within the right frontal lobe with surrounding edema and mild mass affect , concerning for highly cellular/high-grade tumor differential included lymphoma and glioblastoma, correlation with tissue diagnosis is recommended Patient was seen by [facility] Neurosurgery Dr Lilly, and was scheduled to undergo biopsy on February 14, but however patient got admitted to [place] with worsening left-sided weakness called Dr Lillys office and spoke with his printing assistant , Dr. Lilly is in touch with patient's primary care physician to rescheduled brain biopsy sometime next week Seen by Dr. Ruiz he recommend to hold aspirin, Plavix and steroids. Recommend outpatient follow-up with Dr. Lilly to reschedule biopsy, family is contacting pcp for appointment for clearance of biopsy. Seen by PT they recommend acute rehab rehab. Patient very motivated to participate in skilled physical therapy, but noted to have decreased control of left upper extremity/trunk/left lower extremity needs a walker +1 assist to ambulate safely. Rehab facility is not offering a bed without inflammation on date of biopsy COVID-19 infection mild laryngitis, no hypoxia,cont. supportive care, throat lozenges cough medication and Tylenol. Hypertension noted to have elevated blood pressure on atenolol, will resume irbesartan and hold hydrochlorothiazide, Hyperlipidemia continue statin. Morbid obesity recommend low-calorie diet/continue PT. Acute hypokalemia resolved. Mild acute hyponatremia stable. DVT prophylaxis Lovenox. Full code Patient need continued inpatient hospitalization for close monitoring of neurological status, and safe disposition to rehab facility. Rehab accepting pending review of her biopsy and oncology plan. Quality Stroke Does the patient have a stroke diagnosis?: No VTE Prior VTE?: No VTE Risk Level:: Medical - moderate - high VTE Device Contraindication: N/A - Device Ordered VTE Drug Contraindication: Treatment Not Indicated
[2024-02-16] MEDS: Enoxaparin Sodium 40 MG/0.4 ML SYRINGE SUBCUT (14:16)
--- NOTE | 2024-02-16 16:11 | MHC.CM.PN ---
CM MET W/PT WHO REPORTS SHE IS CONSIDERING GOING HOME IF WE CAN GET VNA SERVICES FOR HER AND WILL FOLLOW UP W/[facility], PT ALSO REQUESTING CM MAKE A FOLLOW UP/PRE-OP APPT IF POSSIBLE. PT DID RECEIVE CALL BACK FROM PT'S PCP OFFICE AND SPOKE W/FLORENTINO BURGOS AND REQUESTED CM CALL BACK MONDAY AM TO SCHEDULE, PT WILL NEED A 40MIN BLACK AND FLORENTINO WILL ATTEMPT TO FIT HER IN W/ANOTHER PROVIDER VS PT'S PCP HOWEVER HE WILL NOT RETURN TO WORK UNTIL FEBRUARY 27, CM TO FOLLOW UP MONDAY AFTER HOLIDAY W/E. ANTIC PLAN WILL BE FOR PT TO DC AFTER W/E W/SERVICES, HOSPITALIST AWARE.
[2024-02-17 03:39] VITALS: BP 119/64; PULSE 62; RESP 20; TEMP 36.4; O2SAT 96
[2024-02-17 07:51] VITALS: BP 145/58; PULSE 62; RESP 16; TEMP 36.3; O2SAT 97
[2024-02-17] MEDS: Atorvastatin Calcium 80 MG TABLET PO (09:15)
[2024-02-17] MEDS: atenoloL 100 MG TABLET PO (09:16)
[2024-02-17] MEDS: buPROPion HCl XL 300 MG TAB.ER.24H PO (09:16)
[2024-02-17] MEDS: guaiFENesin DM 200/20/10 ML 10 ML SYRUP PO ×3 (09:20→22:42)
[2024-02-17] MEDS: Benzonatate 100 MG CAPSULE 200 MG PO ×3 (09:20→22:42)
[2024-02-17] MEDS: Valsartan 160 MG TABLET PO (09:20)
[2024-02-17] MEDS: 0.9 % Sodium Chloride Flush 3 ML SYRINGE IVFLUSH ×3 (09:40→22:41)
[2024-02-17 11:30] VITALS: BP 121/64; PULSE 57; RESP 18; TEMP 36.1; O2SAT 96
[2024-02-17] MEDS: Enoxaparin Sodium 40 MG/0.4 ML SYRINGE SUBCUT (13:16)
[2024-02-17 14:43] LABS: Anion Gap 14 (12-20); Blood Urea Nitrogen 12 mg/dL (9-16); Calcium 9.4 mg/dL (8.4-10.2); Carbon Dioxide 25 mmol/L (22-29); Chloride 99 mmol/L (96-108); Creatinine Clr Calc Pharmacy 101.7; Estimated Glomerular Filt Rate > 60; Glucose Random 101 mg/dL (60-115); Potassium 3.2 mmol/L (3.3-5.1); Sodium 135 mmol/L (135-145)
--- NOTE | 2024-02-17 14:52 | HO.PM.IMPN ---
Subjective Subjective Date of Service: 02/17/24 Interval History: L-sided weakness minimal cough no dyspnea Review of Systems Review of Systems: Yes all other systems are reviewed and are negative Physical Exam Vital Signs: Vital Signs: Last Vital Signs Temp 97.0 F 02/17/24 11:30 Pulse 57 02/17/24 11:30 Resp 18 02/17/24 11:30 BP 121/64 02/17/24 11:30 Pulse Ox 96 02/17/24 11:30 O2 Del Method Room Air 02/17/24 11:30 BMI result Body Mass Index 48.8 Gen: in no acute distress HEENT: sclera anicteric, moist mucus membranes Neck: supple Lungs: clear to auscultation bilaterally Heart: regular rate and rhythm, no murmurs Abd: soft, non-tender, non-distended Ext: no edema Skin: warm/well-perfused Neuro: alert and oriented x3, L-sided weakness Psych: appropriate affect Objective Data Active Medications Acetaminophen (Acetaminophen 325 Mg Tablet) 975 mg PO Q6H PRN PRN Reason: mild pain, headache or fever Last Admin: 02/15/24 06:35 Dose: 975 mg Documented By: DAVIN Atenolol (Atenolol 100 Mg Tablet) 100 mg PO DAILY [facility]; Protocol Last Admin: 02/17/24 09:16 Dose: 100 mg Documented By: ENID Atorvastatin Calcium (Atorvastatin Calcium 80 Mg Tablet) 80 mg PO DAILY [facility] Last Admin: 02/17/24 09:15 Dose: 80 mg Documented By: ENID Benzocaine (Throat Lozenge, Medicated Lozenge) 1 lozenge MUCOUS MEM Q2H PRN PRN Reason: Sore Throat Last Admin: 02/16/24 12:36 Dose: 1 lozenge Documented By: ALEJANDRAAC Benzonatate (Benzonatate 100 Mg Capsule) 200 mg PO TID PRN PRN Reason: Cough Last Admin: 02/17/24 09:20 Dose: 200 mg Documented By: ENID Bupropion HCl (Bupropion Hcl Xl 300 Mg Tab.Er.24h) 300 mg PO DAILY [facility] Last Admin: 02/17/24 09:16 Dose: 300 mg Documented By: ENID Docusate Sodium (Docusate Sodium 100 Mg Capsule) 100 mg PO BEDTIME PRN PRN Reason: constipation Enoxaparin Sodium (Enoxaparin Sodium 40 Mg/0.4 Ml Syringe) 40 mg SUBCUT Q24H [facility] Last Admin: 02/17/24 13:16 Dose: 40 mg Documented By: ENID Guaifenesin/Dextromethorphan (Guaifenesin Dm 200/20/10 Ml 10 Ml Syrup) 10 ml PO Q6H PRN PRN Reason: cough Last Admin: 02/17/24 09:20 Dose: 10 ml Documented By: ENID Melatonin (Melatonin 3 Mg Tablet) 6 mg PO BEDTIME PRN PRN Reason: Insomnia Last Admin: 02/15/24 23:34 Dose: 6 mg Documented By: NOAMI Omeprazole (Omeprazole 20 Mg Capsule.) 20 mg PO DAILY@0630 [facility] Last Admin: 02/17/24 06:51 Dose: Not Given Documented By: YARON Non-Admin Reason: Patient Asleep Ondansetron HCl (Ondansetron Hcl 4 Mg/2 Ml Vial) 4 mg IVPUSH Q4H PRN PRN Reason: Nausea and Vomiting Sodium Chloride (0.9 % Sodium Chloride Flush 3 Ml Syringe) 3 ml IVFLUSH QSHIFT [facility] Last Admin: 02/17/24 09:40 Dose: 3 ml Documented By: ENID Valsartan (Valsartan 160 Mg Tablet) 160 mg PO DAILY [facility] Last Admin: 02/17/24 09:20 Dose: 160 mg Documented By: ENID Labs 02/12/24 05:00 02/17/24 14:26 Labs: Laboratory Results - last 24 hr 02/17/24 14:26 Anion Gap 14 Estim Creat Clear Calc 101.7 Estimated GFR > 60 Random Glucose 101 Calcium 9.4 D Assessment and Plan (1) Brain tumor: Status: Acute (2) Left-sided weakness: Status: Acute (3) COVID: Status: Acute Plan d5 58yo F with HTN + HLD, recently found to have R frontal lobe mass suspicious for GBM; scheduled to undergo biopsy by neurosurgeon Dr Lilly at [facility] 02/14 but came in with worsening L-sided weakness, difficulty ambulating, and LEAHY. Admitted for FRANNIE and also found to ahve Covid-19 without hypoxia brain mass - MRI brain report reviewed from [facility] showed lobular intra-axial enhancing mass within the right frontal lobe with surrounding edema and mild mass affect , concerning for highly cellular/high-grade tumor; differential included lymphoma and glioblastoma, correlation with tissue diagnosis is recommended - pt will reschedule biopsy to next week - per Dr Ruiz, hold ASA, clopidogrel, and steroids - PT consulted, recommend AIR Covid-19 infection - not hypoxic; expectant management hypoK - replete; d/c HCTZ; recheck BMP in AM hypoNa - resolved; d/'yvon HCTZ HTN - conitnue atenolol + valsartan HLD - statin morbid obesity - diet/exercise counseling dispo - AIR recommended but pt may end up going home in order to get biopsy done faster In my clinical judgment, the patient requires continued inpatient hospitalization for the following reasons: placement Total time managing care of this patient today: 35 minutes. Quality Stroke Does the patient have a stroke diagnosis?: No VTE Prior VTE?: No VTE Risk Level:: Medical - moderate - high VTE Device Contraindication: N/A - Device Ordered VTE Drug Contraindication: Treatment Not Indicated
[2024-02-17] MEDS: Potassium Chloride ER 20 MEQ TAB.ER.PRT PO (15:07)
[2024-02-17 16:00] VITALS: BP 123/57; PULSE 71; RESP 18; TEMP 36.6; O2SAT 94
[2024-02-17 20:00] VITALS: BP 147/72; PULSE 88; RESP 20; TEMP 36.4; O2SAT 96
--- NOTE | 2024-02-17 22:02 | PM.EVENT ---
Event Note Date of Service: 02/17/24 Event Note: Was notified by the nurse that patient fell down on the floor. Patient states she slipped while getting out of the bed and lower herself to the floor. Did not hit head. Did not lose consciousness before falling. No chest pain or palpitations. Able to move bilateral lower extremities. Time Spent With Patient Time: Total time managing care of this patient today ____ minutes.
[2024-02-17] MEDS: Melatonin 3 MG TABLET 6 MG PO (22:42)
[2024-02-17] MEDS: Acetaminophen 325 MG TABLET 975 MG PO (22:42)
[2024-02-17] MEDS: Throat Lozenge, Medicated LOZENGE 1 LOZENGE MUCOUS MEM (22:43)
[2024-02-18] VITALS: BP 99/57; PULSE 56; RESP 20; TEMP 36.1; O2SAT 96
[2024-02-18 03:24] VITALS: BP 120/57; PULSE 54; RESP 20; TEMP 36.1; O2SAT 98
[2024-02-18 08:00] VITALS: BP 121/62; PULSE 62; RESP 20; TEMP 36.4; O2SAT 95
[2024-02-18 08:12] LABS: Anion Gap 12 (12-20); Blood Urea Nitrogen 12 mg/dL (9-16); Calcium 9.2 mg/dL (8.4-10.2); Carbon Dioxide 26 mmol/L (22-29); Chloride 100 mmol/L (96-108); Creatinine Clr Calc Pharmacy 102.9; Estimated Glomerular Filt Rate > 60; Glucose Random 84 mg/dL (60-115); Potassium 3.2 mmol/L (3.3-5.1); Sodium 135 mmol/L (135-145)
--- NOTE | 2024-02-18 08:44 | PC.NURSE ---
during report at change of shift this patent rang for assistance to use the bathroom but did not wait for fear of incontinence and did not wait for staff, pt slipped in their own stool and fell unwitnessed to ground onto her buttocks ,pt denies LOC, initail pain or head strike during fall, aware, pt evaluated and btb, VSS Tylenol given for mild pain later, pt slept through the night
[2024-02-18] MEDS: Benzonatate 100 MG CAPSULE 200 MG PO ×2 (10:05→17:16)
[2024-02-18] MEDS: guaiFENesin DM 200/20/10 ML 10 ML SYRUP PO ×2 (10:05→16:40)
[2024-02-18] MEDS: buPROPion HCl XL 300 MG TAB.ER.24H PO (10:05)
[2024-02-18] MEDS: atenoloL 100 MG TABLET PO (10:06)
[2024-02-18] MEDS: Valsartan 160 MG TABLET PO (10:06)
[2024-02-18] MEDS: 0.9 % Sodium Chloride Flush 3 ML SYRINGE IVFLUSH ×2 (10:07→15:41)
[2024-02-18] MEDS: Atorvastatin Calcium 80 MG TABLET PO (10:07)
[2024-02-18 12:00] VITALS: BP 121/69; PULSE 60; RESP 20; TEMP 36.3; O2SAT 97
--- NOTE | 2024-02-18 13:10 | HO.PM.IMPN ---
Subjective Subjective Date of Service: 02/18/24 Interval History: fell overnight while trying to get to bathroom, slipped on feces and hit her side but did not hit her head coughing; no dyspnea having some auditory hallucinations Review of Systems Review of Systems: Yes all other systems are reviewed and are negative Physical Exam Vital Signs: Vital Signs: Last Vital Signs Temp 97.6 F 02/18/24 08:00 Pulse 62 02/18/24 08:00 Resp 20 02/18/24 08:00 BP 121/62 02/18/24 08:00 Pulse Ox 95 02/18/24 08:00 O2 Del Method Room Air 02/18/24 08:00 BMI result Body Mass Index 48.8 Gen: in no acute distress HEENT: sclera anicteric, moist mucus membranes Neck: supple Lungs: clear to auscultation bilaterally Heart: regular rate and rhythm, no murmurs Abd: soft, non-tender, non-distended Ext: no edema Skin: warm/well-perfused Neuro: alert and oriented x3, L-sided weakness Psych: appropriate affect Objective Data Active Medications Acetaminophen (Acetaminophen 325 Mg Tablet) 975 mg PO Q6H PRN PRN Reason: mild pain, headache or fever Last Admin: 02/17/24 22:42 Dose: 975 mg Documented By: YARON Atenolol (Atenolol 100 Mg Tablet) 100 mg PO DAILY [facility]; Protocol Last Admin: 02/18/24 10:06 Dose: 100 mg Documented By: ENID Atorvastatin Calcium (Atorvastatin Calcium 80 Mg Tablet) 80 mg PO DAILY [facility] Last Admin: 02/18/24 10:07 Dose: 80 mg Documented By: ENID Benzocaine (Throat Lozenge, Medicated Lozenge) 1 lozenge MUCOUS MEM Q2H PRN PRN Reason: Sore Throat Last Admin: 02/17/24 22:43 Dose: 1 lozenge Documented By: YARON Benzonatate (Benzonatate 100 Mg Capsule) 200 mg PO TID PRN PRN Reason: Cough Last Admin: 02/18/24 10:05 Dose: 200 mg Documented By: ENID Bupropion HCl (Bupropion Hcl Xl 300 Mg Tab.Er.24h) 300 mg PO DAILY [facility] Last Admin: 02/18/24 10:05 Dose: 300 mg Documented By: ENID Docusate Sodium (Docusate Sodium 100 Mg Capsule) 100 mg PO BEDTIME PRN PRN Reason: constipation Enoxaparin Sodium (Enoxaparin Sodium 40 Mg/0.4 Ml Syringe) 40 mg SUBCUT Q24H [facility] Last Admin: 02/17/24 13:16 Dose: 40 mg Documented By: ENID Guaifenesin/Dextromethorphan (Guaifenesin Dm 200/20/10 Ml 10 Ml Syrup) 10 ml PO Q6H PRN PRN Reason: cough Last Admin: 02/18/24 10:05 Dose: 10 ml Documented By: ENID Melatonin (Melatonin 3 Mg Tablet) 6 mg PO BEDTIME PRN PRN Reason: Insomnia Last Admin: 02/17/24 22:42 Dose: 6 mg Documented By: YARON Omeprazole (Omeprazole 20 Mg Capsule.Dr) 20 mg PO DAILY@0630 [facility] Last Admin: 02/18/24 05:51 Dose: Not Given Documented By: YARON Non-Admin Reason: Patient Asleep Ondansetron HCl (Ondansetron Hcl 4 Mg/2 Ml Vial) 4 mg IVPUSH Q4H PRN PRN Reason: Nausea and Vomiting Sodium Chloride (0.9 % Sodium Chloride Flush 3 Ml Syringe) 3 ml IVFLUSH QSHIFT [facility] Last Admin: 02/18/24 10:07 Dose: 3 ml Documented By: ENID Valsartan (Valsartan 160 Mg Tablet) 160 mg PO DAILY [facility] Last Admin: 02/18/24 10:06 Dose: 160 mg Documented By: ENID Labs 02/12/24 05:00 02/18/24 07:44 Labs: Laboratory Results - last 24 hr 02/17/24 02/18/24 14:26 07:44 Hold Purple Top SEE NOTE Anion Gap 14 12 Estim Creat Clear Calc 101.7 102.9 Estimated GFR > 60 > 60 Random Glucose 101 84 Calcium 9.4 D 9.2 Assessment and Plan (1) Brain tumor: Status: Acute (2) Left-sided weakness: Status: Acute (3) COVID: Status: Acute Plan d6 58yo F with HTN + HLD, recently found to have R frontal lobe mass suspicious for GBM; scheduled to undergo biopsy by neurosurgeon Dr Lilly at [facility] 02/14 but came in with worsening L-sided weakness, difficulty ambulating, and LEAHY. Admitted for FRANNIE and also found to ahve Covid-19 without hypoxia brain mass - MRI brain report reviewed from [facility] showed lobular intra-axial enhancing mass within the right frontal lobe with surrounding edema and mild mass affect , concerning for highly cellular/high-grade tumor; differential included lymphoma and glioblastoma, correlation with tissue diagnosis is recommended - pt will reschedule biopsy to next week - per Dr Ruiz, hold ASA, clopidogrel, and steroids - PT consulted, recommend AIR and given fall last night I do not think discharge home will be safe for the pt [she is alone much of the day] Covid-19 infection - not hypoxic; expectant management hypoK - replete; d/c HCTZ; recheck BMP in AM hypoNa - resolved; d/c'ed HCTZ HTN - conitnue atenolol + valsartan HLD - statin morbid obesity - diet/exercise counseling dispo - AIR In my clinical judgment, the patient requires continued inpatient hospitalization for the following reasons: placement Total time managing care of this patient today: 35 minutes. Quality Stroke Does the patient have a stroke diagnosis?: No VTE Prior VTE?: No VTE Risk Level:: Medical - moderate - high VTE Device Contraindication: N/A - Device Ordered VTE Drug Contraindication: Treatment Not Indicated
[2024-02-18 15:32] VITALS: BP 141/59; PULSE 65; RESP 20; TEMP 36.4; O2SAT 98
[2024-02-18] MEDS: Enoxaparin Sodium 40 MG/0.4 ML SYRINGE SUBCUT (15:39)
[2024-02-18] MEDS: Acetaminophen 325 MG TABLET 975 MG PO (16:39)
[2024-02-18] MEDS: Throat Lozenge, Medicated LOZENGE 1 LOZENGE MUCOUS MEM (16:44)
[2024-02-18 20:00] VITALS: BP 111/55; PULSE 61; RESP 20; TEMP 36.3; O2SAT 96
[2024-02-19] VITALS: BP 119/65; PULSE 62; RESP 20; TEMP 36.2; O2SAT 97
[2024-02-19] MEDS: guaiFENesin DM 200/20/10 ML 10 ML SYRUP PO ×3 (02:47→22:24)
[2024-02-19 04:00] VITALS: BP 120/62; PULSE 62; RESP 19; TEMP 36.3; O2SAT 97
[2024-02-19] MEDS: Omeprazole 20 MG CAPSULE.DR PO (05:54)
[2024-02-19 07:31] VITALS: BP 133/66; PULSE 60; RESP 20; TEMP 36.8; O2SAT 96
[2024-02-19] MEDS: Benzonatate 100 MG CAPSULE 200 MG PO (08:59)
[2024-02-19] MEDS: Valsartan 160 MG TABLET PO (08:59)
[2024-02-19] MEDS: atenoloL 100 MG TABLET PO (09:00)
[2024-02-19] MEDS: buPROPion HCl XL 300 MG TAB.ER.24H PO (09:00)
[2024-02-19] MEDS: Atorvastatin Calcium 80 MG TABLET PO (09:00)
[2024-02-19] MEDS: 0.9 % Sodium Chloride Flush 3 ML SYRINGE IVFLUSH ×3 (09:01→22:24)
[2024-02-19 12:00] VITALS: BP 130/66; PULSE 61; RESP 20; TEMP 36.4; O2SAT 96
--- NOTE | 2024-02-19 12:29 | P.PNIM_ITS ---
Subjective Subjective Date of Service: 02/19/24 Interval History: some cough, no dyspnea feels a little less unbalanced L side weak Review of Systems Review of Systems: Yes all other systems are reviewed and are negative Physical Exam 2 Vital Signs: Vital Signs: Last Vital Signs Temp 98.3 F 02/19/24 07:31 Pulse 60 02/19/24 07:31 Resp 20 02/19/24 07:31 BP 133/66 02/19/24 07:31 Pulse Ox 96 02/19/24 07:31 O2 Del Method Room Air 02/19/24 07:31 BMI result Body Mass Index 48.8 Gen: in no acute distress HEENT: sclera anicteric, moist mucus membranes Neck: supple Lungs: clear to auscultation bilaterally Heart: regular rate and rhythm, no murmurs Abd: soft, non-tender, non-distended, obese Ext: no edema Skin: warm/well-perfused Neuro: alert and oriented x3, L-sided weakness Psych: appropriate affect Objective Data Active Medications Acetaminophen (Acetaminophen 325 Mg Tablet) 975 mg PO Q6H PRN PRN Reason: mild pain, headache or fever Last Admin: 02/18/24 16:39 Dose: 975 mg Documented By: ENID Atenolol (Atenolol 100 Mg Tablet) 100 mg PO DAILY [facility]; Protocol Last Admin: 02/19/24 09:00 Dose: 100 mg Documented By: ENID Atorvastatin Calcium (Atorvastatin Calcium 80 Mg Tablet) 80 mg PO DAILY [facility] Last Admin: 02/19/24 09:00 Dose: 80 mg Documented By: ENID Benzocaine (Throat Lozenge, Medicated Lozenge) 1 lozenge MUCOUS MEM Q2H PRN PRN Reason: Sore Throat Last Admin: 02/18/24 16:44 Dose: 1 lozenge Documented By: ENID Benzonatate (Benzonatate 100 Mg Capsule) 200 mg PO TID PRN PRN Reason: Cough Last Admin: 02/19/24 08:59 Dose: 200 mg Documented By: ENID Bupropion HCl (Bupropion Hcl Xl 300 Mg Tab.Er.24h) 300 mg PO DAILY [facility] Last Admin: 02/19/24 09:00 Dose: 300 mg Documented By: ENID Docusate Sodium (Docusate Sodium 100 Mg Capsule) 100 mg PO BEDTIME PRN PRN Reason: constipation Enoxaparin Sodium (Enoxaparin Sodium 40 Mg/0.4 Ml Syringe) 40 mg SUBCUT Q24H [facility] Last Admin: 02/18/24 15:39 Dose: 40 mg Documented By: ENID Guaifenesin/Dextromethorphan (Guaifenesin Dm 200/20/10 Ml 10 Ml Syrup) 10 ml PO Q6H PRN PRN Reason: cough Last Admin: 02/19/24 09:00 Dose: 10 ml Documented By: ENID Melatonin (Melatonin 3 Mg Tablet) 6 mg PO BEDTIME PRN PRN Reason: Insomnia Last Admin: 02/17/24 22:42 Dose: 6 mg Documented By: YARON Omeprazole (Omeprazole 20 Mg Capsule.) 20 mg PO DAILY@0630 [facility] Last Admin: 02/19/24 05:54 Dose: 20 mg Documented By: CLOVIS Ondansetron HCl (Ondansetron Hcl 4 Mg/2 Ml Vial) 4 mg IVPUSH Q4H PRN PRN Reason: Nausea and Vomiting Sodium Chloride (0.9 % Sodium Chloride Flush 3 Ml Syringe) 3 ml IVFLUSH QSHIFT [facility] Last Admin: 02/19/24 09:01 Dose: 3 ml Documented By: ENID Valsartan (Valsartan 160 Mg Tablet) 160 mg PO DAILY [facility] Last Admin: 02/19/24 08:59 Dose: 160 mg Documented By: ENID Labs 02/12/24 05:00 02/18/24 07:44 Assessment and Plan (1) Brain tumor: Status: Acute (2) Left-sided weakness: Status: Acute (3) COVID: Status: Acute Plan d7 58yo F with HTN + HLD, recently found to have R frontal lobe mass suspicious for GBM; scheduled to undergo biopsy by neurosurgeon Dr Lilly at [facility] 02/14 but came in with worsening L-sided weakness, difficulty ambulating, and LEAHY. Admitted for FRANNIE and also found to haveCovid-19 without hypoxia brain mass - MRI brain report reviewed from [facility] showed lobular intra-axial enhancing mass within the right frontal lobe with surrounding edema and mild mass affect , concerning for highly cellular/high-grade tumor; differential included lymphoma and glioblastoma, correlation with tissue diagnosis is recommended - pt will reschedule biopsy to next week - per Dr Ruiz, hold ASA, clopidogrel, and steroids - need AIR placement given fall risk and good rehab potential Covid-19 infection - not hypoxic; expectant management hypoK - repleted; recheck level in AM hypoNa - resolved; d/c'ed HCTZ HTN - continue atenolol + valsartan HLD - statin morbid obesity - diet/exercise counseling dispo - AIR In my clinical judgment, the patient requires continued inpatient hospitalization for the following reasons: placement Total time managing care of this patient today: 35 minutes. Quality Stroke Does the patient have a stroke diagnosis?: No VTE Prior VTE?: No VTE Risk Level:: Medical - moderate - high VTE Device Contraindication: N/A - Device Ordered VTE Drug Contraindication: Treatment Not Indicated
[2024-02-19] MEDS: Enoxaparin Sodium 40 MG/0.4 ML SYRINGE SUBCUT (15:17)
[2024-02-19 15:28] VITALS: BP 111/68; PULSE 59; RESP 16; TEMP 36.1; O2SAT 96
[2024-02-19 19:46] VITALS: BP 140/66; PULSE 61; RESP 20; TEMP 36.3; O2SAT 97
[2024-02-20 04:00] VITALS: BP 115/59; PULSE 73; RESP 19; TEMP 36.2; O2SAT 97
[2024-02-20 06:07] LABS: Anion Gap 13 (12-20); Blood Urea Nitrogen 12 mg/dL (9-16); Calcium 9.1 mg/dL (8.4-10.2); Carbon Dioxide 27 mmol/L (22-29); Chloride 103 mmol/L (96-108); Creatinine Clr Calc Pharmacy 94.9; Estimated Glomerular Filt Rate > 60; Glucose Random 86 mg/dL (60-115); Potassium 3.6 mmol/L (3.3-5.1); Sodium 139 mmol/L (135-145)
[2024-02-20 07:15] VITALS: BP 130/58; PULSE 65; RESP 18; TEMP 36.3; O2SAT 98
[2024-02-20] MEDS: 0.9 % Sodium Chloride Flush 3 ML SYRINGE IVFLUSH ×2 (09:31→14:21)
[2024-02-20] MEDS: Valsartan 160 MG TABLET PO (09:31)
[2024-02-20] MEDS: Atorvastatin Calcium 80 MG TABLET PO (09:31)
[2024-02-20] MEDS: buPROPion HCl XL 300 MG TAB.ER.24H PO (09:31)
[2024-02-20] MEDS: atenoloL 100 MG TABLET PO (09:31)
--- NOTE | 2024-02-20 10:51 | HO.PM.IMPN ---
Subjective Subjective Date of Service: 02/20/24 Interval History: L-sided weakness improving minimal cough Review of Systems Review of Systems: Yes all other systems are reviewed and are negative Physical Exam Vital Signs: Vital Signs: Last Vital Signs Temp 97.4 F 02/20/24 07:15 Pulse 65 02/20/24 07:15 Resp 18 02/20/24 07:15 BP 130/58 L 02/20/24 07:15 Pulse Ox 98 02/20/24 07:15 O2 Del Method Room Air 02/20/24 07:15 O2 Flow Rate 2 02/19/24 12:00 BMI result Body Mass Index 48.8 Gen: in no acute distress HEENT: sclera anicteric, moist mucus membranes Neck: supple Lungs: clear to auscultation bilaterally Heart: regular rate and rhythm, no murmurs Abd: soft, non-tender, non-distended, obese Ext: no edema Skin: warm/well-perfused Neuro: alert and oriented x3, L-sided weakness Psych: appropriate affect Objective Data Active Medications Acetaminophen (Acetaminophen 325 Mg Tablet) 975 mg PO Q6H PRN PRN Reason: mild pain, headache or fever Last Admin: 02/18/24 16:39 Dose: 975 mg Documented By: ENID Atenolol (Atenolol 100 Mg Tablet) 100 mg PO DAILY [facility]; Protocol Last Admin: 02/20/24 09:31 Dose: 100 mg Documented By: YESSENIA Atorvastatin Calcium (Atorvastatin Calcium 80 Mg Tablet) 80 mg PO DAILY [facility] Last Admin: 02/20/24 09:31 Dose: 80 mg Documented By: YESSENIA Benzocaine (Throat Lozenge, Medicated Lozenge) 1 lozenge MUCOUS MEM Q2H PRN PRN Reason: Sore Throat Last Admin: 02/18/24 16:44 Dose: 1 lozenge Documented By: ENID Benzonatate (Benzonatate 100 Mg Capsule) 200 mg PO TID PRN PRN Reason: Cough Last Admin: 02/19/24 08:59 Dose: 200 mg Documented By: ENID Bupropion HCl (Bupropion Hcl Xl 300 Mg Tab.Er.24h) 300 mg PO DAILY [facility] Last Admin: 02/20/24 09:31 Dose: 300 mg Documented By: YESSENIA Docusate Sodium (Docusate Sodium 100 Mg Capsule) 100 mg PO BEDTIME PRN PRN Reason: constipation Enoxaparin Sodium (Enoxaparin Sodium 40 Mg/0.4 Ml Syringe) 40 mg SUBCUT Q24H [facility] Last Admin: 02/19/24 15:17 Dose: 40 mg Documented By: ENID Guaifenesin/Dextromethorphan (Guaifenesin Dm 200/20/10 Ml 10 Ml Syrup) 10 ml PO Q6H PRN PRN Reason: cough Last Admin: 02/19/24 22:24 Dose: 10 ml Documented By: CLOVIS Melatonin (Melatonin 3 Mg Tablet) 6 mg PO BEDTIME PRN PRN Reason: Insomnia Last Admin: 02/17/24 22:42 Dose: 6 mg Documented By: YARON Omeprazole (Omeprazole 20 Mg Capsule.) 20 mg PO DAILY@0630 [facility] Last Admin: 02/20/24 07:00 Dose: Not Given Documented By: CLOVIS Non-Admin Reason: pt. did not want to be woke up Ondansetron HCl (Ondansetron Hcl 4 Mg/2 Ml Vial) 4 mg IVPUSH Q4H PRN PRN Reason: Nausea and Vomiting Sodium Chloride (0.9 % Sodium Chloride Flush 3 Ml Syringe) 3 ml IVFLUSH QSHIFT [facility] Last Admin: 02/20/24 09:31 Dose: 3 ml Documented By: YESSENIA Valsartan (Valsartan 160 Mg Tablet) 160 mg PO DAILY [facility] Last Admin: 02/20/24 09:31 Dose: 160 mg Documented By: YESSENIA Labs 02/12/24 05:00 02/20/24 05:32 Labs: Laboratory Results - last 24 hr 02/20/24 05:32 Anion Gap 13 Estim Creat Clear Calc 94.9 Estimated GFR > 60 Random Glucose 86 Calcium 9.1 Assessment and Plan (1) Brain tumor: Status: Acute (2) Left-sided weakness: Status: Acute (3) COVID: Status: Acute Plan d8 58yo F with HTN + HLD, recently found to have R frontal lobe mass suspicious for GBM; scheduled to undergo biopsy by neurosurgeon Dr Lilly at [facility] 02/14 but came in with worsening L-sided weakness, difficulty ambulating, and LEAHY. Admitted for FRANNIE and also found to haveCovid-19 without hypoxia brain mass - MRI brain report reviewed from [facility] showed lobular intra-axial enhancing mass within the right frontal lobe with surrounding edema and mild mass affect , concerning for highly cellular/high-grade tumor; differential included lymphoma and glioblastoma, correlation with tissue diagnosis is recommended - pt will reschedule biopsy to next week with Dr Lilly; will clarify if needs primary care vs. preop clearance - per Dr Ruiz, hold ASA, clopidogrel, and steroids - need AIR placement given fall risk and good rehab potential Covid-19 infection - not hypoxic; expectant management hypoK - repleted; recheck level in AM hypoNa - resolved; d/c'ed HCTZ HTN - continue atenolol + valsartan HLD - statin morbid obesity - diet/exercise counseling dispo - AIR In my clinical judgment, the patient requires continued inpatient hospitalization for the following reasons: placement Total time managing care of this patient today: 35 minutes. Quality Stroke Does the patient have a stroke diagnosis?: No VTE Prior VTE?: No VTE Risk Level:: Medical - moderate - high VTE Device Contraindication: N/A - Device Ordered VTE Drug Contraindication: Treatment Not Indicated
--- NOTE | 2024-02-20 13:43 | MHC.CM.PN ---
CM met with pt to discuss DC plan, pt still wants to go to Acute rehab and is no longer on Covid precautions. Referral updated and expanded for [facility]. At this time pt does not have an appt. for her biopsy.
[2024-02-20] MEDS: Enoxaparin Sodium 40 MG/0.4 ML SYRINGE SUBCUT (14:20)
[2024-02-20 15:26] VITALS: BP 149/68; PULSE 73; RESP 20; TEMP 36.1; O2SAT 95
--- NOTE | 2024-02-20 15:55 | MHC.CM.PN ---
Cm expanded referrals to acute rehabs and sent updated PT and OT notes, they responded that pt's insurance ([facility]) will not approve acute rehab because pt needs contact guard with walking. CM has expanded rehab search for STR.
[2024-02-20 19:15] VITALS: BP 141/71; PULSE 68; RESP 20; TEMP 36.4; O2SAT 96
[2024-02-21 03:10] VITALS: BP 129/62; PULSE 58; RESP 18; TEMP 35.9; O2SAT 97
[2024-02-21] MEDS: Omeprazole 20 MG CAPSULE.DR PO (07:37)
[2024-02-21 08:00] VITALS: BP 130/60; PULSE 60; RESP 18; TEMP 36.2; O2SAT 97
[2024-02-21] MEDS: atenoloL 100 MG TABLET PO (09:44)
[2024-02-21] MEDS: buPROPion HCl XL 300 MG TAB.ER.24H PO (09:44)
[2024-02-21] MEDS: 0.9 % Sodium Chloride Flush 3 ML SYRINGE IVFLUSH ×3 (09:44→15:29)
[2024-02-21] MEDS: Valsartan 160 MG TABLET PO (09:44)
[2024-02-21] MEDS: Atorvastatin Calcium 80 MG TABLET PO (09:44)
[2024-02-21] MEDS: Acetaminophen 325 MG TABLET 975 MG PO (09:49)
[2024-02-21] MEDS: guaiFENesin DM 200/20/10 ML 10 ML SYRUP PO (11:26)
[2024-02-21 11:39] VITALS: BP 137/66; PULSE 58; RESP 18; TEMP 36.2; O2SAT 96
--- NOTE | 2024-02-21 13:57 | P.PNIM_ITS ---
Subjective Subjective Date of Service: 02/21/24 Interval History: L side stronger. Minimal nasal congestion. No headache. No N/V. No hallucinations. Review of Systems Review of Systems: Yes all other systems are reviewed and are negative Physical Exam 2 Vital Signs: Vital Signs: Last Vital Signs Temp 97.2 F 02/21/24 11:39 Pulse 58 02/21/24 11:39 Resp 18 02/21/24 11:39 BP 137/66 02/21/24 11:39 Pulse Ox 96 02/21/24 11:39 O2 Del Method Room Air 02/21/24 11:39 O2 Flow Rate 2 02/19/24 12:00 BMI result Body Mass Index 48.8 Gen: in no acute distress HEENT: sclera anicteric, moist mucus membranes Neck: supple Lungs: clear to auscultation bilaterally Heart: regular rate and rhythm, no murmurs Abd: soft, non-tender, non-distended, obese Ext: no edema Skin: warm/well-perfused Neuro: alert and oriented x3, L-sided weakness Psych: appropriate affect Objective Data Active Medications Acetaminophen (Acetaminophen 325 Mg Tablet) 975 mg PO Q6H PRN PRN Reason: mild pain, headache or fever Last Admin: 02/21/24 09:49 Dose: 975 mg Documented By: YESSENIA Atenolol (Atenolol 100 Mg Tablet) 100 mg PO DAILY [facility]; Protocol Last Admin: 02/21/24 09:44 Dose: 100 mg Documented By: YESSENIA Atorvastatin Calcium (Atorvastatin Calcium 80 Mg Tablet) 80 mg PO DAILY [facility] Last Admin: 02/21/24 09:44 Dose: 80 mg Documented By: YESSENIA Benzocaine (Throat Lozenge, Medicated Lozenge) 1 lozenge MUCOUS MEM Q2H PRN PRN Reason: Sore Throat Last Admin: 02/18/24 16:44 Dose: 1 lozenge Documented By: ENID Benzonatate (Benzonatate 100 Mg Capsule) 200 mg PO TID PRN PRN Reason: Cough Last Admin: 02/19/24 08:59 Dose: 200 mg Documented By: ENID Bupropion HCl (Bupropion Hcl Xl 300 Mg Tab.Er.24h) 300 mg PO DAILY [facility] Last Admin: 05/29/24 09:44 Dose: 300 mg Documented By: YESSENIA Docusate Sodium (Docusate Sodium 100 Mg Capsule) 100 mg PO BEDTIME PRN PRN Reason: constipation Enoxaparin Sodium (Enoxaparin Sodium 40 Mg/0.4 Ml Syringe) 40 mg SUBCUT Q24H [facility] Last Admin: 02/20/24 14:20 Dose: 40 mg Documented By: VIJAY Guaifenesin/Dextromethorphan (Guaifenesin Dm 200/20/10 Ml 10 Ml Syrup) 10 ml PO Q6H PRN PRN Reason: cough Last Admin: 02/21/24 11:26 Dose: 10 ml Documented By: YESSENIA Guaifenesin/Dextromethorphan (Guaifenesin Dm 100/10/5 Ml 5 Ml Syrup) 5 ml PO Q4H PRN PRN Reason: Cough Melatonin (Melatonin 3 Mg Tablet) 6 mg PO BEDTIME PRN PRN Reason: Insomnia Last Admin: 02/17/24 22:42 Dose: 6 mg Documented By: YARON Omeprazole (Omeprazole 20 Mg Capsule.Dr) 20 mg PO DAILY@0630 [facility] Last Admin: 02/21/24 07:37 Dose: 20 mg Documented By: DAVIN Ondansetron HCl (Ondansetron Hcl 4 Mg/2 Ml Vial) 4 mg IVPUSH Q4H PRN PRN Reason: Nausea and Vomiting Oxymetazoline HCl (Oxymetazoline Hcl 0.05 % Nasal 15 Ml [place]) 2 spray NOSTRIL- B BID PRN PRN Reason: Nasal Congestion Stop: 02/24/24 09:49 Sodium Chloride (0.9 % Sodium Chloride Flush 3 Ml Syringe) 3 ml IVFLUSH QSHIFT [facility] Last Admin: 02/21/24 09:44 Dose: 3 ml Documented By: YESSENIA Valsartan (Valsartan 160 Mg Tablet) 160 mg PO DAILY [facility] Last Admin: 02/21/24 09:44 Dose: 160 mg Documented By: YESSENIA Labs 02/12/24 05:00 02/20/24 05:32 Assessment and Plan (1) Brain tumor: Status: Acute (2) Left-sided weakness: Status: Acute (3) COVID: Status: Acute Plan d9 58yo F with HTN + HLD, recently found to have R frontal lobe mass suspicious for GBM; scheduled to undergo biopsy by neurosurgeon Dr Lilly [place] [facility] 02[place] but came in with worsening L-sided weakness, difficulty ambulating, and LEAHY. Also found to have Covid-19 without hypoxia brain mass - MRI brain report reviewed from [facility] showed lobular intra-axial enhancing mass within the right frontal lobe with surrounding edema and mild mass affect , concerning for highly cellular/high-grade tumor; differential included lymphoma and glioblastoma, correlation with tissue diagnosis is recommended - plan 1-2 wk of acute rehab, then discharge home and follow up with PCP for clearance prior to biopsy by Dr Lilly - per Dr Ruiz, hold ASA, clopidogrel, and steroids - need AIR placement given fall risk and good rehab potential Covid-19 infection - not hypoxic; expectant management; d/c'ed isolation precautions as it has been >10d hypoK - repleted hypoNa - resolved; d/c'ed HCTZ HTN - continue atenolol + valsartan HLD - statin morbid obesity - diet/exercise counseling dispo - AIR In my clinical judgment, the patient requires continued inpatient hospitalization for the following reasons: placement; unable to safely discharge home Total time managing care of this patient today: 35 minutes. Quality Stroke Does the patient have a stroke diagnosis?: No VTE Prior VTE?: No VTE Risk Level:: Medical - moderate - high VTE Device Contraindication: N/A - Device Ordered VTE Drug Contraindication: Treatment Not Indicated
[2024-02-21 15:14] VITALS: BP 138/75; PULSE 56; RESP 20; TEMP 36.8; O2SAT 95
[2024-02-21] MEDS: Oxymetazoline HCl 0.05 % Nasal 15 ML SPRAY 2 SPRAY NOSTRIL-B (15:28)
[2024-02-21] MEDS: Enoxaparin Sodium 40 MG/0.4 ML SYRINGE SUBCUT (15:29)
[2024-02-21 20:00] VITALS: BP 140/82; PULSE 66; RESP 18; TEMP 36.1; O2SAT 96
[2024-02-22 03:41] VITALS: BP 130/70; PULSE 64; RESP 16; TEMP 36.2; O2SAT 98
[2024-02-22] MEDS: Omeprazole 20 MG CAPSULE.DR PO (05:49)
[2024-02-22] MEDS: 0.9 % Sodium Chloride Flush 3 ML SYRINGE IVFLUSH ×2 (05:50→08:00)
[2024-02-22 07:44] VITALS: BP 125/67; PULSE 59; RESP 20; TEMP 36.6; O2SAT 98
[2024-02-22] MEDS: Atorvastatin Calcium 80 MG TABLET PO (07:59)
[2024-02-22] MEDS: atenoloL 100 MG TABLET PO (07:59)
[2024-02-22] MEDS: Valsartan 160 MG TABLET PO (07:59)
[2024-02-22] MEDS: buPROPion HCl XL 300 MG TAB.ER.24H PO (07:59)
--- NOTE | 2024-02-22 10:43 | P.PNIM_ITS ---
Subjective Subjective Date of Service: 02/22/24 Interval History: No acute nursing events overnight No headache. No N/V. No hallucinations. Review of Systems All other system reviewed and negative Physical Exam 2 Vital Signs: Vital Signs: Last Vital Signs Temp 97.9 F 02/22/24 07:44 Pulse 59 02/22/24 07:44 Resp 20 02/22/24 07:44 BP 125/67 02/22/24 07:44 Pulse Ox 98 02/22/24 07:44 O2 Del Method Room Air 02/22/24 07:44 O2 Flow Rate 2 02/19/24 12:00 BMI result Body Mass Index 48.8 Const: Other: General awake alert x3,in no acute distress. Anicteric sclera Neck supple no JVD. CVS regular rate rhythm, Respiratory lungs clear to auscultation, no respiratory distress, no wheeze, no rhonchi. Gastrointestinal abdomen soft, obese, non tender, bowel sounds audible. Extremities no pitting edema. Neuro face symmetrical, speech clear, mild left upper and mild to moderate lower extremity weakness, left extensor plantar. Skin no rash Psych appropriate affect Objective Data Active Medications Acetaminophen (Acetaminophen 325 Mg Tablet) 975 mg PO Q6H PRN PRN Reason: mild pain, headache or fever Last Admin: 02/21/24 09:49 Dose: 975 mg Documented By: YESSENIA Atenolol (Atenolol 100 Mg Tablet) 100 mg PO DAILY [facility]; Protocol Last Admin: 02/22/24 07:59 Dose: 100 mg Documented By: VIJAY Atorvastatin Calcium (Atorvastatin Calcium 40 Mg Tablet) 40 mg PO DAILY [facility] Last Admin: 02/22/24 10:33 Dose: Not Given Documented By: VIJAY Non-Admin Reason: Recieved 80 mg this morning; dose adusted Benzocaine (Throat Lozenge, Medicated Lozenge) 1 lozenge MUCOUS MEM Q2H PRN PRN Reason: Sore Throat Last Admin: 02/18/24 16:44 Dose: 1 lozenge Documented By: ENID Benzonatate (Benzonatate 100 Mg Capsule) 200 mg PO TID PRN PRN Reason: Cough Last Admin: 02/19/24 08:59 Dose: 200 mg Documented By: ENID Bupropion HCl (Bupropion Hcl Xl 300 Mg Tab.Er.24h) 300 mg PO DAILY [facility] Last Admin: 02/22/24 07:59 Dose: 300 mg Documented By: VIJAY Docusate Sodium (Docusate Sodium 100 Mg Capsule) 100 mg PO BEDTIME PRN PRN Reason: constipation Enoxaparin Sodium (Enoxaparin Sodium 40 Mg/0.4 Ml Syringe) 40 mg SUBCUT Q24H [facility] Last Admin: 02/21/24 15:29 Dose: 40 mg Documented By: YESSENIA Guaifenesin/Dextromethorphan (Guaifenesin Dm 200/20/10 Ml 10 Ml Syrup) 10 ml PO Q6H PRN PRN Reason: cough Last Admin: 02/21/24 11:26 Dose: 10 ml Documented By: YESSENIA Guaifenesin/Dextromethorphan (Guaifenesin Dm 100/10/5 Ml 5 Ml Syrup) 5 ml PO Q4H PRN PRN Reason: Cough Melatonin (Melatonin 3 Mg Tablet) 6 mg PO BEDTIME PRN PRN Reason: Insomnia Last Admin: 02/17/24 22:42 Dose: 6 mg Documented By: YARON Omeprazole (Omeprazole 20 Mg Capsule.Dr) 20 mg PO DAILY@0630 [facility] Last Admin: 02/22/24 05:49 Dose: 20 mg Documented By: LONDON Ondansetron HCl (Ondansetron Hcl 4 Mg/2 Ml Vial) 4 mg IVPUSH Q4H PRN PRN Reason: Nausea and Vomiting Oxymetazoline HCl (Oxymetazoline Hcl 0.05 % Nasal 15 Ml [place]) 2 spray NOSTRIL- B BID PRN PRN Reason: Nasal Congestion Stop: 02/24/24 09:49 Last Admin: 02/21/24 15:28 Dose: 2 spray Documented By: YESSENIA Sodium Chloride (0.9 % Sodium Chloride Flush 3 Ml Syringe) 3 ml IVFLUSH QSHIFT [facility] Last Admin: 02/22/24 08:00 Dose: 3 ml Documented By: VIJAY Valsartan (Valsartan 160 Mg Tablet) 160 mg PO DAILY [facility] Last Admin: 02/22/24 07:59 Dose: 160 mg Documented By: VIJAY Labs 02/12/24 05:00 02/20/24 05:32 Assessment and Plan (1) Brain tumor: Status: Acute Plan d9 58yo F with HTN + HLD, recently found to have R frontal lobe mass suspicious for GBM; scheduled to undergo biopsy by neurosurgeon Dr Lilly at [facility] 02/14 but came in with worsening L-sided weakness, difficulty ambulating, and LEAHY. Also found to have Covid-19 without hypoxia brain mass - MRI brain report reviewed from [facility] showed lobular intra-axial enhancing mass within the right frontal lobe with surrounding edema and mild mass affect , concerning for highly cellular/high-grade tumor; differential included lymphoma and glioblastoma, correlation with tissue diagnosis is recommended - plan 1-2 wk of acute rehab, then discharge home and follow up with PCP for clearance prior to biopsy by Dr Lilly - per Dr Ruiz, hold ASA, clopidogrel, and steroids - need AIR placement given fall risk and good rehab potential Covid-19 infection - not hypoxic; expectant management; d/c'ed isolation precautions as it has been >10d hypoK - repleted hypoNa - resolved; d/c'ed HCTZ HTN - continue atenolol + valsartan HLD - statin morbid obesity - diet/exercise counseling dispo - AIR In my clinical judgment, the patient requires continued inpatient hospitalization for the following reasons: placement; unable to safely discharge home Quality Stroke Does the patient have a stroke diagnosis?: No VTE Prior VTE?: No VTE Risk Level:: Medical - moderate - high VTE Device Contraindication: N/A - Device Ordered VTE Drug Contraindication: Treatment Not Indicated
--- NOTE | 2024-02-22 11:42 | MHC.CM.PN ---
Pt has been medically cleared for DC, she will go to [facility] today via BLS.
--- NOTE | 2024-02-22 12:35 | PM.DS ---
DS: Providers Provider Date of Service: 02/22/24 Date of admission: 02/16/24 12:07 Primary care physician: Prince Quinones MD Consults: 02/12/24 01:26 Consult to Hematology / Oncology Routine Consulting Provider: Shaq Hook Reason for consultation: Brain tumor Has provider been notified: No Consult to Neurology Routine Consulting Provider: [facility] Reason for consultation: Worsening left-sided weakness Has provider been notified: No DS: Diagnosis Discharge Diagnosis (1) Brain tumor: Status: Acute DS: Summary Hospital Course Hospital Course: HPI: Corine Macedo 58 years old woman with past medical history significant for morbid obesity, essential hypertension and hyperlipidemia was brought to the ED via EMS due to worsening left-sided weakness to the point that now she is dragging her left leg. She also complained of mild headache. She has been vomiting but she attributes did to the ambulance ride. Denied acute visual disturbances, tingling or dizziness. She did not report any acute speech difficulty. She was recently prescribed to take Plavix and aspirin but stopped it 2 days ago and she is going to undergo brain biopsy. According to patient, about 3 weeks ago, she was recently diagnosed with stroke and was found to have a brain tumor at [facility] and scheduled to have a biopsy this Monday. Patient did not report any acute cardiopulmonary, genitourinary or gastrointestinal symptoms (except for nausea and vomiting). Patient denied tobacco smoking, alcohol abuse or illicit drug use. In the ED, she was found to have normal vital signs. CBC is remarkable for anemia, 11.9. There is no leukocytosis and platelets are normal. There is hyponatremia 132. Other electrolytes are normal. Renal renal function is normal and troponin is negative. Head CT scan without contrast showed right frontal lobe deep white matter edema suspicious for underlying lesion. There is no intracranial bleeding. ECG showed normal sinus rhythm without ischemic changes. Viral testing is positive for COVID-19. ED tx: Zofran 4 mg IV. Decadron 10 mg IV. Hospital course: MRI brain report reviewed from [facility] which showed globular intra-axial enhancing mass within the right frontal lobe with surrounding edema and mild mass effect. Neurology was consulted inpatient. Plan for 1-2 weeks of acute rehab then discharge home and follow-up with PCP for clearance prior to biopsy by Dr Lilly. Patient was found to be COVID positive but isolation precautions discontinued as it had been more than 10 days. Not hypoxic. Patient was found to be hypokalemic and potassium replaced. Also found to have hyponatremia and hydrochlorothiazide discontinued with returned to normal sodium levels. Patient stable to be discharged to acute care facility. Status at Discharge Overall status at discharge: patient is progressing back to baseline Time Attestation Discharge Coordination Time (in mins): 40 minutes Quality: Safe Use of Opioids Does Pt have an Active Cancer Diagnosis on the Problem List?: No Quality: Stroke Does the patient have a stroke diagnosis?: No Physical Exam Vital Signs: Vital Signs: Last Vital Signs Temp 97.9 F 02/22/24 07:44 Pulse 59 02/22/24 07:44 Resp 20 02/22/24 07:44 BP 125/67 02/22/24 07:44 Pulse Ox 98 02/22/24 07:44 O2 Del Method Room Air 02/22/24 07:44 O2 Flow Rate 2 02/19/24 12:00 BMI result Body Mass Index 48.8 General awake alert x3,in no acute distress. Anicteric sclera Neck supple no JVD. CVS regular rate rhythm, Respiratory lungs clear to auscultation, no respiratory distress, no wheeze, no rhonchi. Gastrointestinal abdomen soft, obese, non tender, bowel sounds audible. Extremities no pitting edema. Neuro face symmetrical, speech clear, mild left upper and mild to moderate lower extremity weakness, left extensor plantar. Skin no rash Psych appropriate affect DS: Data Imaging Chest x-ray: Radiologist's impression: ITS Impressions Head CT 02/11/24 21:18 IMPRESSION: 1. Right frontal lobe deep white matter edema suspicious for underlying lesion. Recommend CT with contrast or/MRI brain with and without contrast for further evaluation. 2. No acute bleed seen. 3. Moderate cerebral volume loss. This critical result was discussed with Dr. Daren Ray at 9:36 PM on 02/11/2024. It was ascertained that the content and urgency of the report was understood at the time of direct communication. Discharge Plan Discharge Anticipated Discharge Date/Time: 02/13/24 13:51 Patient Disposition: Xfer Acute [facility] Discharge Diagnosis: Brain mass Referrals: Physician,Unknown J [Physician] - 1 Week Discharge Medications: Continued atorvastatin 80 mg tablet 80 mg PO DAILY atenolol 100 mg tablet 100 mg PO DAILY acetaminophen [Tylenol Arthritis Pain] 650 mg Tablet Extended Release 650 mg PO QD-BID PRN (Reason: Pain) omeprazole 20 mg capsule,delayed release(DR/EC) 20 mg PO DAILY irbesartan 300 mg tablet 300 mg PO DAILY bupropion HCl 300 mg tablet extended release 24 hr 300 mg PO DAILY Discontinued hydrochlorothiazide 12.5 mg tablet 12.5 mg PO DAILY clopidogrel 75 mg Tablet 75 mg PO DAILY Discharge Orders: Discharge Order (Routine); Ordered 02/22/24 Ordered By: Juan Alberto Watson Diet: Low fat, low cholesterol Activity on Discharge: As tolerated Stand Alone Forms: Patient Portal Discharge page Print Language: Icelandic Care Plan Goals: Left-sided weakness due to right frontal lobe mass Follow-up with [facility] Neurosurgery Health Concerns: Hypertension Hyperlipidemia Plan of Treatment: Outpatient follow-up at [facility] neuro surgery Assessment: As above
[2024-02-22] MEDS: ondansetron HCL 4 MG/2 ML VIAL IVPUSH (14:10)
[2024-02-22] MEDS: Enoxaparin Sodium 40 MG/0.4 ML SYRINGE SUBCUT (14:10)
== END 2024-02-22 14:21 | disposition short-term general hospital (02) | DRG 54 ==
LOC: HO.ED 02-12 00:22 → HO.EDOVER 02-12 00:44 → HO.IMC 02-13 20:37
PROVIDERS: Family Medicine; Hospitalist; Admitting Provider Internal Medicine; Emergency Provider Emergency Medicine Emergency Medical Services; PCP Internal Medicine; Visit Provider Student in an Organized Health Care Education/Training Program
DX: C71.1 Malignant neoplasm of frontal lobe (principal); U07.1 COVID-19; E87.1 Hypo-osmolality and hyponatremia; Z68.42 Body mass index [BMI] 45.0-49.9, adult; I69.854 Hemiplegia and hemiparesis following other cerebrovascular disease affecting left non-dominant side; E87.6 Hypokalemia; E66.01 Morbid (severe) obesity due to excess calories; I10 Essential (primary) hypertension; Z79.02 Long term (current) use of antithrombotics/antiplatelets; Z79.899 Other long term (current) drug therapy
CPT/HCPCS: 0241U; 36415; 70450; 80048; 81001; 82550; 82947; 84132; 84484; 85025; 85610; 85730; 87651; 92950; 93005; 97110; 97112; 97116; 97163; 97167; 97530; 97535; 99221; 99285; J1650; J2405

== ENCOUNTER → 2024-02-11 21:10 | Outpatient (BNV) | payer OTHER, SELFPAY | PROVIDERS: Admitting Provider Internal Medicine; Emergency Provider Emergency Medicine Emergency Medical Services; Visit Provider Internal Medicine Cardiovascular Disease | DX: R53.1 Weakness (principal) | CPT/HCPCS: 93010 ==

== ENCOUNTER → 2024-02-12 00:30 | Outpatient (BNV) | payer OTHER, SELFPAY | PROVIDERS: Admitting Provider Internal Medicine; Emergency Provider Emergency Medicine Emergency Medical Services; Visit Provider Internal Medicine | DX: D49.6 Neoplasm of unspecified behavior of brain (principal) | CPT/HCPCS: 99231; 99232; 99239; 99499 ==

== ENCOUNTER → 2024-02-12 00:30 | Outpatient (BNV) | payer OTHER, SELFPAY | PROVIDERS: Admitting Provider Internal Medicine; Emergency Provider Emergency Medicine Emergency Medical Services; Visit Provider Psychiatry & Neurology Neurology | DX: D49.6 Neoplasm of unspecified behavior of brain (principal); G81.94 Hemiplegia, unspecified affecting left nondominant side; U07.1 COVID-19 | CPT/HCPCS: 99222; 99232 ==

== ENCOUNTER 2025-06-25 14:48 | Emergency (ER) | payer BC, SELFPAY ==
--- OUTSIDE RECORDS SUMMARY | 2008-03-06 15:29 | XMS_ITS | Encounter Summary ---
Author Organization [facility] Address [address] [place] [address] Care Team Providers Care Mallet And Die Cutter Name Role Phone Unavailable Primary Care Provider Unavailabl e Encounter Details Date Type Department Care Team (Late st Contact Info) Description 03/06/2008 15:29 EDT Hospital Encounter [facility] - [place] conversion [address] [place] [address] Yoandy Nunez PA [address] [place] [address] Social History Tobacco Use Types Packs/Day Years [...]
--- OUTSIDE RECORDS SUMMARY | 2008-03-27 09:09 | XMS_ITS | Encounter Summary ---
Author Organization [facility] Address [address] [place] [address] Care Team Providers Care Water Supply Technician Name Role Phone Unavailable Primary Care Provider Unavailabl e Encounter Details Date Type Department Care Team (Late st Contact Info) Description 03/27/2008 9:09 EDT Hospital Encounter [facility] - [place] conversion [address] [place] [address] Yoandy Nunez PA [address] [place] [address] Social History Tobacco Use Types Packs/Day Years [...]
--- OUTSIDE RECORDS SUMMARY | 2008-04-17 09:08 | XMS_ITS | Encounter Summary ---
Author Organization [facility] Address [address] [place] [address] Care Team Providers Care Form Grader Name Role Phone Unavailable Primary Care Provider Unavailabl e Encounter Details Date Type Department Care Team (Late st Contact Info) Description 04/17/2008 9:08 EDT Hospital Encounter [facility] - [place] conversion [address] [place] [address] Yoandy Nunez PA [address] [place] [address] Social History Tobacco Use Types Packs/Day Years [...]
--- OUTSIDE RECORDS SUMMARY | 2008-05-01 14:10 | XMS_ITS | Encounter Summary ---
Author Organization [facility] Address [address] [place] [address] Care Team Providers Care Director Of Maternity Services Name Role Phone Unavailable Primary Care Provider Unavailabl e Encounter Details Date Type Department Care Team (Late st Contact Info) Description 05/01/2008 14:10 EDT Hospital Encounter [facility] - Maple conversion [address] [place] [address] Yoandy Nunez PA [address] [place] [address] Social History Tobacco Use Types Packs/Day Years [...]
--- OUTSIDE RECORDS SUMMARY | 2008-05-30 09:04 | XMS_ITS | Encounter Summary ---
Author Organization [facility] Address [address] [place] [address] Care Team Providers Care Ic Design Manager Name Role Phone Unavailable Primary Care Provider Unavailabl e Encounter Details Date Type Department Care Team (Late st Contact Info) Description 05/30/2008 9:04 EDT Hospital Encounter [facility] - [place] conversion [address] [place] [address] Yoandy Nunez PA [address] [place] [address] Social History Tobacco Use Types Packs/Day Years [...]
--- OUTSIDE RECORDS SUMMARY | 2008-06-26 15:11 | XMS_ITS | Encounter Summary ---
Author Organization [facility] Address [address] [place] [address] Care Team Providers Care It Administrative Assistant Name Role Phone Unavailable Primary Care Provider Unavailabl e Encounter Details Date Type Department Care Team (Late st Contact Info) Description 06/26/2008 15:11 EDT Hospital Encounter [facility] - [place] conversion [address] [place] [address] Yoandy Nunez PA [address] [place] [address] Social History Tobacco Use Types Packs/Day Years [...]
--- OUTSIDE RECORDS SUMMARY | 2008-10-03 09:40 | XMS_ITS | Encounter Summary ---
Author Organization [facility] Address [address] [place] [address] Care Team Providers Care Food Scientist Name Role Phone Unavailable Primary Care Provider Unavailabl e Encounter Details Date Type Department Care Team (Late st Contact Info) Description 10/03/2008 8:40 EST Hospital Encounter [facility] - [place] conversion [address] [place] [address] Yoandy Nunez PA [address] [place] [address] Social History Tobacco Use Types Packs/Day Years [...]
--- NOTE | ~2025-06-25 | XR_ITS ---
EXAMINATION: XR WRIST, LEFT CLINICAL INFORMATION: pre reduction COMPARISON: None available. TECHNIQUE: PA and cross lateral views of the left wrist. FINDINGS: Acute comminuted cortical disruption distal metaphysis of the radius with ulnar and volar deviation of the proximal fragment. There is a medial and volar deviation of the ulna with respect to the carpal bones. Degenerative changes in the first and second carpometacarpal joint. Soft tissue edema pattern without subcutaneous emphysema. No metallic or radiopaque foreign body. XR/XR wrist LT 2V IMPRESSION: Acute comminuted medial and volar displaced fracture and dislocation, left wrist Electronically signed by: Mason Mcgill MD 06/25/2025 03:42 PM EDT
--- NOTE | ~2025-06-25 | XR_ITS ---
EXAMINATION: XR WRIST, LEFT CLINICAL INFORMATION: post reduction COMPARISON: X-ray from one hour earlier TECHNIQUE: PA and lateral views of the left wrist. FINDINGS: Since prior, a splint has been placed. Fracture remains impacted across the distal radius. There is 7 mm offset in a radial direction of the distal articular surface relative to the radial metaphysis which is mildly improved compared to the prior. There is also improvement in the radial styloid height. However, there is 75% dorsal offset of the articular fragment relative to the radial metaphysis and overlap of the metaphysis.. XR/XR wrist LT 2V IMPRESSION: Post closed reduction there is improvement in the radial styloid height, but there is 75% dorsal offset of the radial articular surface relative to the radial diaphysis with approximately 1 cm overlap. Electronically signed by: Toby Campos MD 06/25/2025 04:36 PM EDT
--- NOTE | ~2025-06-25 | XR_ITS ---
CLINICAL HISTORY: reduction 2 view left wrist Comparison: 06/25/2025, 4:20 p. M. Findings: Alignment of the distal radial fracture fragments and overall appearance of the wrist are unchanged. IMPRESSION: 1. No significant change from earlier exam This document has been electronically signed by: Geraldo Rai MD on 06/25/2025 18:26:06
[2025-06-25 14:57] VITALS: BP 176/93; PULSE 64; O2SAT 98
[2025-06-25 15:00] VITALS: BP 145/73; PULSE 66; RESP 18; O2SAT 98; BMI 47.3
--- NOTE | 2025-06-25 15:14 | ED.EXTPRO ---
HPI - Extremity Problem General Chief complaint: Extremity Injury, Upper Stated complaint: ?L WRIST FX W/DEFORMITY S/P FALL PER EMS Time Seen by Provider: 06/25/25 14:59 Source: patient Mode of arrival: ambulatory Limitations: no limitations History of Present Illness ED Provider: HPI Narrative: 60-year-old woman presented with left wrist deformity after a FOOSH injury, she states she was stepping out of the car and rolled her ankle, fell forward, no head strike, no ankle injury. Tetanus up-to-date, she has superficial abrasion to the ulnar styloid of her left wrist. Related Data Home Medications ?Medication ?Instructions ?Recorded ?Confirmed acetaminophen 650 mg 650 mg PO QD-BID PRN Pain 02/12/24 02/12/24 tablet,extended release (Tylenol Arthritis Pain) atenolol 100 mg tablet 100 mg PO DAILY 02/12/24 02/12/24 atorvastatin 80 mg tablet 80 mg PO DAILY 02/12/24 02/12/24 bupropion HCl 300 mg 24 hr tablet, 300 mg PO DAILY 02/12/24 02/12/24 extended release irbesartan 300 mg tablet 300 mg PO DAILY 02/12/24 02/12/24 omeprazole 20 mg capsule,delayed 20 mg PO DAILY 02/12/24 02/12/24 release Previous Rx's ?Medication ?Instructions ?Recorded oxycodone 5 mg tablet 5 mg PO Q6H PRN pain #10 tabs 06/25/25 Allergies Allergy/AdvReac Type Severity Reaction Status Date / Time No Known Allergies Allergy Verified 06/25/25 15:04 Review of Systems Constitutional: Constitutional: Reports as per [facility] Past Medical History Medical History (Updated 06/26/25 @ 00:00 by Carlos Dabernadette) Brain tumor Hyperlipidemia Essential hypertension Morbid obesity Social History Social History (System 05/15/24 @ 15:51 by Bernie Thurston CNA) Household Members: None Housing: Apartment Do you presently have visiting nurse or other home services: No Alcohol intake: current Alcohol intake frequency: holidays/special occasions only Comment: encourage to ring call light Patient Tobacco Use Status: Never used Tobacco Substance Use Type: Marijuana Advance Directives Date on File: 02/16/24 service: No Physical Exam Vital Signs: Vital Signs: Last Vital Signs Temp 98.3 F 06/25/25 18:51 Pulse 62 06/25/25 18:51 Resp 17 06/25/25 18:51 BP 172/95 H 06/25/25 18:51 Pulse Ox 99 06/25/25 18:51 O2 Del Method Room Air 06/25/25 18:51 BMI result Body Mass Index 47.3 Const: Other: General: ?Appears of stated age, no head trauma no facial trauma ? ?no oropharyngeal trauma ? Neck: Supple, no LAD ? ?CV: RRR, no obvious murmurs appreciated ? ?Resp: ?No wheezing rales rhonchi no stridor moving air well ? ?MSK: Dinner fork deformity left wrist, superficial abrasion over the ulnar styloid radial ulnar pulses +2, able to spread her fingers hitchhiker thumb squeeze my hand, no lower extremity edema or deformity ? Skin: Superficial abrasion ? ?Neuro: ?Alert and oriented x3, moving upper and lower extremities symmetrically, no obvious facial asymmetry noted, cranial nerves 2-12 intact Course Course Course Narrative: / Tejinder: The patient was signed out to me at change of shift by the previous emergency physician pending the results of a postreduction x-ray of the left wrist. The patient had fallen and injured her left wrist and had a fracture of the left distal radius with significant deformity. There was some skin abrasions but it was felt to be a closed fracture. Previous physician had performed a closed reduction which showed improvement in both the length and the displacement of the fracture segment. My plan has been to discharge the patient but the nurse was concerned that the patient's fingers looked discolored. I went to see the patient. She seemed uncomfortable and I took down the splint. Color returned to the fingers. I repeated a reduction procedure with a 2nd hematoma block administered under sterile procedure and again suspended the left arm by the index and middle fingers and applied weights to the elbow. After 10 minutes the patient was placed in a sugar-tong splint made with Orthoglass, cast padding, and Rolo bandages. A repeat x-ray did not show remarkable changes in the fracture. The patient seemed to feel somewhat more comfortable with a new splint. She was given a sling. She will be discharged to follow up with Orthopedics. Medications Administered Discontinued Medications Generic Name Dose Route Start Last Admin Trade Name Freq PRN Reason Stop Dose Admin Bupivacaine HCl 10 ml 06/25/25 17:04 06/25/25 17:28 Bupivacaine Mpf 0.25 % 10 Ml Vial INFILTRATI 06/25/25 17:05 10 ml ONCE ONE Administration Lidocaine HCl 10 ml 06/25/25 15:10 06/25/25 16:37 Lidocaine Hcl 1 % 20 Ml Vial INFILTRATI 06/25/25 15:11 10 ml ONCE ONE Administration Morphine Sulfate 4 mg 06/25/25 15:10 06/25/25 15:15 Morphine Sulfate 4 Mg/Ml Cartridge IVPUSH 06/25/25 15:11 4 mg ONCE ONE Administration Protocol Oxycodone HCl 10 mg 06/25/25 16:15 06/25/25 16:59 Oxycodone Hcl Immed Release 5 Mg Tablet PO 06/25/25 16:16 10 mg ONCE ONE Administration Medical Decision Making Medical Decision Making MDM Narrative: 3:25 PM 06/25/2025 (Dr. Lloyd Montaño): Patient is presenting with left wrist deformity, she has an abrasion over the ulnar styloid, cleaned the area just to make sure this is not a compound fracture, and that is not an superficial abrasion, there was no neurovascular compromise, I obtained verbal consent for reduction, hematoma block, we will have him follow up with orthopedics. Differential Diagnosis Differential Diagnoses: The differential diagnosis associated with the presentation includes (Head injury, neck injury, neurovascular compromise, compound fracture) Admission/Observation Consideration of admission/observation: Escalation of care including admission/observation considered Independent Historian Clinical information obtained from an independent historian. History obtained from or confirmed by: EMS Tests considered The following testing was considered but not selected: CT brain, cervical spine Discharge Plan Discharge Clinical Impression: Closed fracture of distal end of left radius Patient Disposition: Home, Self-Care Additional Instructions: Please plan on keeping your left arm elevated to the level of your heart or higher as much as you can. Use the sling when up and around. When resting you may use a pillow or other support device. For pain please use Tylenol 975 mg every 6 hours around the clock. You may also use the prescribed oxycodone 5 mg every 6 hours for additional pain control. Please call the orthopedic office in the morning to arrange follow up care. Any worsening issues significant worsening pain despite this regimen come back to the ER for re-evaluation otherwise you going to need to follow up with the orthopedic surgeons for evaluation. Prescriptions: New oxycodone 5 mg tablet 5 mg PO Q6H PRN (Reason: pain) Qty: 10 0RF Rx Instructions: Partial Fill upon patient request. No Action atorvastatin 80 mg tablet 80 mg PO DAILY atenolol 100 mg tablet 100 mg PO DAILY acetaminophen [Tylenol Arthritis Pain] 650 mg Tablet Extended Release 650 mg PO QD-BID PRN (Reason: Pain) omeprazole 20 mg capsule,delayed release(DR/EC) 20 mg PO DAILY irbesartan 300 mg tablet 300 mg PO DAILY bupropion HCl 300 mg tablet extended release 24 hr 300 mg PO DAILY Ref[place]: [facility] [Provider Group] - 1 week Clinical Impression: Closed fracture of distal end of left radius Interventions: ED Discharge Assessment Last Done: 06/25/25 18:51 Discharge Date/Time: 06/25/25 18:52 Print Language: British
--- OUTSIDE RECORDS SUMMARY | 2025-06-25 16:19 | XMS_ITS | Data Portability ---
Author Organization [place] - [facility],, CRISTINA NELSON MD Address [address] [facility] [address] [place] [address] Care Team Providers Care Commodity Industry Analyst Name Role Phone YELENA SIDDIQUI Primary Care Provider Assessment No assessment recorded. Plan of Treatment Reminders Order Date Submit Date Provider Last Modified By Organization Details Last Modified Time Details Appointments None recorded. Lab pap test, thinprep, cervical 2016 017 [facility], Cytopathology Service, [address] [place] [address], [address], 7 16:40:25 fecal occult blood, stool 2016 017 [facility] In-Office Order, Internal Use Only DO Not Attach Compendium DO Not Attach Compendium, Do Not Delete/merge, [id number] 14:30:43 pap test, thinprep, cervical 2015 016 [facility], Cytopathology Service, [address] [place], [address], 6 13:32:55 follicle- stimulati ng hormone (FSH), baseline 2015 016 [facility], [address], [address], [place], [address], 6 03:35:47 estradiol , serum 2015 016 [facility], [address], [place], [address], 6 03:35:47 pap test, thinprep, cervical 2013 014 [facility] (Centralized Electronic Ordering - All Locations), Patient Can Go To The Location Of Their Choice, [id number] 08:18:58 CBC w/ auto diff 2013 014 [facility] (Centralized Electronic Ordering - All Locations), Patient Can Go To The Location Of Their Choice, [id number] 07:54:02 fecal occult blood, stool 2013 014 [email or web address] In-Office Order, Internal Use Only DO Not Attach Compendium DO Not Attach Compendium, Do Not Delete/merge, [id number] 15:33:52 Referral None recorded. Procedures None recorded. Surgeries None recorded. Imaging MAMMO, screening , digital, bilateral 2016 017 [facility] Orders, [address], [address], [place], [address], 8 08:50:54 US, pelvis, transabdo domingo + transvagi nal 2016 017 [facility] Imaging Orders, [address], [address], [place], [address], 8 07:23:54 US, pelvis 2015 016 [id number] [facility] (Central Scheduling Radiology), [address] [facility], [place], [address], 6 04:20:30 MAMMO, screening , digital, bilateral 2015 016 [facility] Breast [facility] Imaging Orders, [address], [address], [place], [address], 7 08:37:43 MAMMO, screening , digital, bilateral 2013 014 [facility] Imaging Orders, [address], [address], [place], [address], 5 11:27:43 Medication Orders None recorded. Patient TargetsNo targets recorded. Patient Instructions Encounter Date Encounter Id Patient Instructions Last Modified By Organization Details Last Modified Time 07/23/2014 [id number] heavy menstrual periods: care instructions Not available 07/24/2014 15:33:52 She is here for an annual exam, as a new patient. She has not had any obstetrics gyn physician care since her D and C in 11/2011, which was done to assess her heavy menses. the heavy menses continued. She was told a year ago that she had anemia, but did not investigate this. She has factor 5 Leiden deficiency. Two of her sisters have had blood clots. She had been having menses every 1 to 2 months, no menses since 05/30/14. She has menorrhagia and a history of anemia, check CBC, her PCP is checking her TSH as well at the same time. She appears to be doing well. She is advised to get 1500 mg of calcium daily into her diet and supplements combined. There is a health benefit with adequate vitamin D supplementation to at least 400 units daily, daily aerobic exercise of 30 minutes, and stress reduction. Monthly self breast exam was taught, and stressed, and is advised to call if she discovers any new mass in the breast. Seat belt use for herself and passengers are advised. There are significant health benefits of becoming and remainig fit, with an optimal BMI. There is a potential reduction in chronic discomfort, diminished risks of hypertension, diabetes, and heart disease with the proper weight management. With a recommended BMI there can be improved mobility as she ages. Strategies to reach and maintain her target weight were discussed in detail. Not available 07/24/2014 15:33:52 02/15/2016 [id number] vaginal bleeding after menopause: care instructions Not available 02/15/2016 11:32:41 She is here for annual exam. She has not been here since 06/2014, her first visit. She lost her job recently because she is not bilingual. 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 She has not had a menses from 06/2015 to 12/2015, then had very light bleeding for only a day or two last month, none since. Shew has no vasomotor symptoms. We discussed that due to her morbid obesity she is at increased risk for endometrial cancer, nad if she is having PMB then it needs tp be investigated. However it is not certain if this was PMB or an attempt at menses. She will check an FSH and serum estradiol level if she has another episode of bleeding, and if menopausal then will return for investigation. All questions answered. She is also aware that she has the option to do a pelvic soogram to fully assess the ovaries as it is not possible to have an adequate pelvic exam at her weight, she declines that at this time. She appears to be doing well. She is advised to get 1500 mg of calcium daily into her diet and supplements combined. There is a health benefit with adequate vitamin D supplementation to at least 400 units daily, daily aerobic exercise of 30 minutes, and stress reduction. Monthly self breast exam was taught, and stressed, and is advised to call if she discovers any new mass in the breast. Seat belt use for herself and passengers are advised. There are significant health benefits of becoming and remainig fit, with an optimal BMI. There is a potential reduction in chronic discomfort, diminished risks of hypertension, diabetes, and heart disease with the proper weight management. With a recommended BMI there can be improved mobility as she ages. Strategies to reach and maintain her target weight were discussed in detail. Not available 02/15/2016 11:32:41 03/24/2016 [id number] She is here to discuss her recent blood work after an episode of delayed onset bleeding, with a question of whether it was the last hurrah or true PMB, after several months of amenorrhea. Her estradiol was in the postmenopausal range however her FSH was low. She is likely edison-menopausal and this was a recent menses. She also notes right lower quadrant fluttering sensation. Her has had a vasectomy and she has no other partner. Check pelvic sonogram for dub and pelvic pain. We had a long discussion about all this, all questions answered. Face to face discussion 25 minutes Not available 03/24/2016 14:17:52 09/14/2017 [id number] vaginal bleeding after menopause: care instructions [email or web address] Not available 09/14/2017 14:31:10 She is here for annual exam, is doing ell. Her sister has bipolar schizoaffective disorder and was in a locked cardona for three months, this is a lot of stres to the patient. She has not had a mesnes since 03/2017. She has had three episodes of brown spotting lasting one day only, since then. A sonogram had been ordered in February but she failed to go. She had labs in the postmenopausal/edison menopausal range. Note from 02/2017: She is here to discuss her recent blood work after an episode of delayed onset bleeding, with a question of whether it was the last hurrah or true PMB, after several months of amenorrhea. Her estradiol was in the postmenopausal range however her FSH was low. She is likely edison-menopausal and this was a recent menses. She also notes right lower quadrant fluttering sensation. Her has had a vasectomy and she has no other partner. Check pelvic sonogram for dub and pelvic pain. She agrees to go for sonogram for continued pmb. One is ordered. She appears to be doing well. She is advised to get 1500 mg of calcium daily into her diet and supplements combined. We discussed the benefits of adequate vitamin D supplementation to at least 400 units daily, daily aerobic exercise of 30 minutes, and stress reduction. Monthly self breast exam was taught, and stressed, and is advised to call if she discovers any new mass in the breast. Seat belt use for herself and passengers advised. The significant health benefits of becoming and remainig fit, with an optimal BMI, were also discussed. We discussed the potential reduction in chronic discomfort, the diminished risks of hypertension, diabetes, and heart disease with the proper weight management, and improved mobility as she ages. Strategies to reach and maintain her target weight wer discussed in detail, all questions answered. Not available 09/14/2017 14:44:12 Reason for Referral None Reported. Results Created Date Observation Date Name Description Value Unit Range Abnormal Flag Note LastModifiedBy Organization Detail LastModifiedTime 07/23/20 14 07/24/2014 fecal occul t blood , stool Occult Blood negati ve Not Available In-Office Order Internal Use Only DO Not Attach Compendium DO Not Attach Compendium, Do Not Delete/merge, [id number] 07/23/2014 11:53:42 02/15/20 16 02/15/2016 pap, LB [id number] ThinP rep Pap, Image d: NEGAT TATIANA FOR SQUAM OUS INTRA EPITH ELIAL LESIO N AND MALIG LELAND . Lynnette Morgan ams, CT( CP) (Case elect jaden nathan antony d 02 17 2016) ADEQU ACY: Satis facto ry. Endoc ervic al/tr ansfo rmati on zone compo nent prese nt. SOURC E: ThinP rep Pap HPV IF ASCUS , Cervi pearl, Image d [facility]: HPV If Diagn osis of ASCUS . lps 07/23 neg Not Available [facility], Cytopathology Service [address] [place], [address], 02/23/2016 13:32:55 09/14/20 17 09/14/2017 pap, LB [id number] ThinP rep Pap, Image d: NEGAT TATIANA FOR SQUAM OUS INTRA EPITH ELIAL LESIO N AND MALSHANEKA LELAND . Rebeca Lockhart, CT( CP) (Case elect jaden nathan antony d 09 15 2017) ADEQU ACY: Satis facto ry. Endoc ervic al/tr ansfo rmati on zone compo nent absen t. SOURC E: ThinP rep Pap HPV IF ASCUS , Cervi pearl, Image d [facility]: HPV If Diagn osis of ASCUS . LPS neg, wendi everett, z12.4 Not Available [facility], Cytopathology Service [address], [place], [address], 09/15/2017 16:40:24 09/14/20 17 09/14/2017 fecal occul t blood , stool Occult Blood negati ve Not Available In-Office Order Internal Use Only DO Not Attach Compendium DO Not Attach Compendium, Do Not Delete/merge, [id number] 09/14/2017 14:18:48 10/31/19 15 10/31/2014 MAMMO , scree pratik, digit al, bilat eral No observ ation record ed. [address] [facility] Imaging Orders [address], [place], [address], 10/31/2014 14:00:24 05/04/20 15 05/04/2015 imagi ng/di agnos tic resul t No observ ation record ed. [address] [facility] Imaging Orders [address], [place], [address], 05/05/2015 06:39:13 12/31/19 16 12/31/2015 MAMMO , scree pratik, digit al, bilat eral No observ ation record ed. [facility] Breast [facility] Wellness Imaging Orders [address], [place], [address], 01/01/2016 10:19:35 01/11/20 16 01/11/2016 ultra sound , breas t No observ ation record ed. [address] [facility] Imaging Orders [address], [place], [address], 01/11/2016 12:08:22 08/12/20 16 08/12/2016 ultra sound , breas t No observ ation record ed. [address] (Outpt Imaging) [address], [place], [address], 08/13/2016 16:06:55 04/21/20 17 04/21/2017 MAMMO , scree pratik, digit al, bilat eral No observ ation record ed. [email or web address] [facility] (Outpt Imaging) [address] [place], [address], 04/24/2017 10:58:42 02/03/20 18 02/02/2018 US, pelvi s, trans abdom inal + trans vagin al No observ ation record ed. [email or web address] [facility] (Outpt Imaging) [address] [place], [address], 02/06/2018 08:54:03 04/26/20 18 04/25/2018 MAMMO , scree pratik, digit al, bilat eral No observ ation record ed. [facility] [address] [place], [address], 04/26/2018 10:15:28 Result Notes None recorded. Problems Name Problem SNOMED Code Status Onset Date Resolution Date Notes Provider Name and Address Organization Details Recorded Time Factor V Leiden mutation 076941410 Completed 09/14/2017 Krystle mc [place] - [facility], 7 14:18:11 Menorrhagia 510148912 Active Cristina Nelson MD [address], [place], [address], [place] - [facility], 6 10:29:08 Hypertensiv e disorder 29153507 Active Cristina Nelson MD [address], [place], [address], [place] - [facility], 6 10:29:08 Asthma [id number] Kimmie Nelson MD [address], [place], [address], [place] - [facility], 6 10:29:08 Mammography abnormal [id number] Kimmie Nelson MD [address], [place], [address], [place] - [facility], 6 10:29:08 Postmenopau halima bleeding 31980209 Active Cristina Nelson MD [address] [facility], [place], [address] [place] - [facility], 6 11:32:41 Problem Notes None recorded. Procedures Surgical History Date Name Laterality Status Provider Name and Address Organization Details Recorded Time 09/25/19 12 Dilation and Curettage completed Krystle Huertas in [facility], 07/23/2014 11:50:48 09/25/18 73 Appendectomy completed Krystle Huertas in [facility], 07/23/2014 11:50:48 Imaging Results None recorded. Procedure Notes None recorded. Medical Equipment None Reported. Allergies No known drug allergies Medications Name Sig Start Date Stop Date Status Note LastModified by Organization Details LastModified Time methocarbam ol 500 mg tablet TAKE 1 TABLET BY MOUTH 4 TIMES A DAY NEEDED MUSCLE SPASMS FOR 5 DAYS active Not Available Not Available No t Available Lidocaine Viscous 2 % mucosal solution active Not Available Not Available Not Available atenolol 100 mg tablet Take 1 tablet every day by oral route. active Not Available Not Available No t Available acetaminoph en 300 mg-codeine 30 mg tablet active Not Available Not Available Not Available cephalexin 500 mg capsule 03/24 completed Not Available Not Available Not Available valsartan 320 mg tablet TAKE 1 TABLET BY MOUTH EVERY DAY active Not Available Not Available No t Available hydrocodone -homatropin e 5 mg-1.5 mg/5 mL oral solution active Not Available Not Available Not Available Iophen C-NR 10 mg-100 mg/5 mL oral liquid active Not Available Not Available Not Available pravastatin 20 mg tablet TAKE 1 TABLET BY MOUTH EVERY DAY active Not Available Not Available No t Available fluticasone propionate 50 mcg/actuati on nasal spray,suspe nsion active Not Available Not Available Not Available doxycycline hyclate 100 mg tablet 09/14 completed Not Available Not Available Not Available naproxen 500 mg tablet TAKE 1 TABLET BY MOUTH TWICE A DAY FOR 5 DAYS-DO NOT TAKE ASPIRIN WHILE ON THIS- active Not Available Not Available No t Available Ventolin HFA 90 mcg/actuati on aerosol inhaler active Not Available Not Available Not Available bupropion HCl XL 300 mg 24 hr tablet, extended release TAKE 1 TABLET BY MOUTH EVERY DAY active Not Available Not Available No t Available Asmanex Twisthaler 220 mcg/actuati on(30 doses) breath activated inhalr active Not Available Not Available Not Available Asmanex Twisthaler 220 mcg/actuati on(60 doses) breath activated inhalr 03/24 completed Not Available Not Available Not Available Aspir-81 active Not Available Not Avai lable Not Available Eye-Ilene Extra + Lutein active Not Available Not Available Not Available peg 3350-electr olytes 236 gram-22.74 gram-6.74 gram-5.86 gram solution active Not Available Not Available Not Available [facility]iCh[facility] spacer USE DIRECTED WITH METERED DOSE INHALERS active Not Available Not Available No t Available Multi Vitamin 09/14 completed Not Available Not Available Not Available Vitals Date Recorded Body height Heart rate Body weight Body mass index (BMI) Systolic And Diastolic Provider Name and Address Organization Details Last Updated DateTime 02/15/2016 168.91 cm 80 /min 995464.8 5759 g 48.8 kg/m2 135/77 mm[Hg] Ludivina Huertas in [facility], 02/15/2016 10:12:21 Date Recorded Body height Heart rate Body weight Body mass index (BMI) Systolic And Diastolic Provider Name and Address Organization Details Last Updated DateTime 03/24/2016 168.91 cm 71 /min 013100.8 6 g 48.8 kg/m2 126/85 mm[Hg] Ludivina Huertas in [facility], 03/24/2016 13:53:19 Date Recorded Body height Body mass index (BMI) Heart rate Body weight Systolic And Diastolic Provider Name and Address Organization Details Last Updated DateTime 07/23/2014 168.91 cm 47 kg/m2 72 /min 434711.5 46005 g 137/77 mm[Hg] Krystle Huertas in [facility], 07/23/2014 12:08:50 Date Recorded Body weight Body mass index (BMI) Body height Heart rate Systolic And Diastolic Provider Name and Address Organization Details Last Updated DateTime 09/14/2017 444300.5 4 g 51.2 kg/m2 166.37 cm 75 /min 122/59 mm[Hg] Krystle Meczywor [place] - [facility], 09/14/2017 14:11:22 Social History Question Answer Notes LastModified by MATINAS BIOPHARMA Details LastModified Time Tobacco Smoking Status Former Smoker only age 14 to 17 Not Available [employer] 07/28/2020 03:19:37 What Is Your Level Of Caffeine Consumption? Occasional [id number] Information not available 07/28/2020 What Type Of Diet Are You Following? REGULAR [id number] Information not available 07/28/2020 Which Illicit Or Recreational Drugs Have You Used? No [id number] Information not available 07/28/2020 Do You Reside In Or Have You Traveled To An Area Where Ebola Virus Transmission Is Active? No [id number] Information not available 07/28/2020 Education 2 Year College Information not available 07/23/2014 How Many Days In The Past Year Have You Had A Heavy Drinking Consumption (4+ Female, 5+ Male)? 0 Information not available 09/14/2017 High Number Of Sexual Partners No Information not available 09/14/2017 To Which Gender Do You Self-identify? Female Information not available 03/24/2016 Marital Status Informatio n not available 07/23/2014 What Was The Date Of Your Most Recent Tobacco Screening? 09/14/2017 [id number] Information not available 07/28/2020 Are You Sexually Active? Yes [id number] Information not available 07/28/2020 How Much Tobacco Do You Smoke? No [id number] Information not available 07/28/2020 General Stress Level High Extremely High...siste r Severely Mentally Ill And She Is Only Family Member Helping Her. Information not available 09/14/2017 How Many Years Have You Smoked Tobacco? 3 [id number] Information not available 07/28/2020 Have You Recently (within The Last 12 Weeks, Or During A Current ) Traveled To Or Lived In A Zika-affected Area? No Information not available 03/24/2016 Sex: Unknown Functional Status Question Answer Note LastModified by [employer] Details LastModified Time What is your level of alcohol consumption? Occasional [id number] Information not available 07/28/2020 What is your occupation? 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 Information not available 09/14/2017 What is your exercise level? None [id number] Information not available 07/28/2020 Mental Status None recorded. Family History Relationship Description Onset Age of this Age Resolved Age Notes LastModified by Organization Details LastModified Time Mother Problem 82 factor 5 blood clotti ng Not available 02/15/2016 10:28:14 Mother Diabetes mellitus type2 Not available 01/24 10:28:14 Father Problem melano ma Not available 02/15/2016 10:28:14 Paternal Grandfather Malignant neoplasm of lung Not available 01/24 10:28:14 Maternal Grandmother Problem leukem ia Not available 02/15/2016 10:28:14 Brother Problem melano ma Not available 02/15/2016 10:28:14 Sister Blood coagulation disorder 2 sister s have Factor V Leiden defici ency Not available 02/15/2016 10:28:14 Sister Malignant neoplasm of breast precan cer but on tamoxi fen for the last 2 yrs. tmeczywor Not available 09/14/2017 14:14:28 Sister Mental disorder bi polar. ..and other illnes s... [email or web address] Not available 09/14/2017 14:21:10 Medical History Condition Response Anesthesia complications N High Blood Pressure Y Candidate for MyRisk panel N Autoimmune Condition N Kidney or Bladder Problems N Thyroid Problems N Depression Y Lung Disease N GI Problems Y Defects or Inherited Disease N Anemia Y History of Ovarian Cancer N History of Breast Cancer N RUTH exposure N BRCA testing in past N Psychiatric Illness N Anxiety Disorder N Diabetes N Arthritis Y Headaches or Migraines Y Infertility N Asthma Y Endometriosis N History of Cancer N Hepatitis N Heart Disease N Hypertension Y Osteoporosis N Gynecological History Statement/Question Response Flow Heavy Date of LMP 04/13/2016 Frequency of Cycle (Q days) 30 Menses Monthly N Duration of Flow (days) 6 Age at Menarche 9 Current Control Method Partner Vas ectomy Age at First Child 17 Obstetrics History GPAL:G 1 P 0 0 0 1 Type Value Living 1 Total 1 Immunizations Vaccine Type Date Status Note Provider Nam e and Address Organization Details Recorded Time Influenza, split virus, trivalent, preservative 3 completed Krystle Mustafa alexandro [place] Rony Huertas in [facility], 07/23/2014 11:50:48 influenza, unspecified formulation 5 completed Ludivina mc D[place]ELLE Rony Huertas in [facility], 03/24/2016 13:56:34 Influenza, split virus, quadrivalent, preservative 7 completed Krystle Mustafa alexandro DANIELLE Rony Huertas in [facility], 09/14/2017 14:12:45 Past Encounters Encounter ID Performer Location Encounter Start Date Encounter Closed Date Diagnosis/Indication Diagnosis SNOMED-CT Code Diagnosis ICD10 Code Diagnosis IMO Codes Diagnosis Note [id number] MD CRISTINA Hoover MD [address] [facility] [place] [address] 07/23/2014 10:59:42 07/24/2014 16:18:41 Specialized medical examination 66961558 Screening for malignant neoplasm of rectum 593611058 Screening mammography 18204927 Menorrhagia 877515297 [id number] MD CRISTINA Hoover MD [address] [facility] [place] [address] 02/15/2016 09:58:12 02/15/2016 13:47:21 Specialized medical examination 20191778 Z01.419 Screening mammography 24 712529 Z12.31 Postmenopa usal bleeding 34514092 N95.0 [id number] MD CRISTINA Hoover MD [address] [facility] [place] [address] 03/24/2016 13:37:51 03/24/2016 15:04:30 Dysfunctional uterine bleeding 14460915 N93.8 Factor V L eiden mutation 563239515 D68.51 [id number] MD CRISTINA Hoover MD [address] [facility] [place] [address] 09/14/2017 13:57:35 09/14/2017 15:35:21 Specialized medical examination 49231153 Z01.419 Screening for malignant neoplasm of rectum 012565241 Z12.12 Screening mammography 24 776228 Z12.31 Postmenopa usal bleeding 53204448 N95.0 Health Concerns Section Related Observation LastModified by Organization Detai ls LastModified Time None Recorded Concern Status LastModified by Organization Details LastModified Time None Recorded Advance Directives Directive None Recorded Payers Insurance Date Sequence Insurance Name Policy Number Policy Wheat Covered Member ID Wheat Member ID Guarantor Name 09/14/2017 1 [facility] Haroldo [place] [id number] Corine Macedo 09/12/2017 1 [employer] (O) [id number] Corine Wain[place]ott [id number] Corineramona Macedo 02/15/2016 1 [facility] [id number] [facility] [id number] [facility] [facility] Notes Date Note Type Note Provider Name and Address Organization Details Recorded Time 07/23/2014 text/html ROS as noted in the HPI Cristina Nelson MD [address], [place], [id number], [place] [facility], 07/24/2014 15:59:58 02/15/2016 text/html ROS as noted in the HPI Cristina Nelson MD [address], [place], [phone], [place] [facility], 02/15/2016 11:32:58 03/24/2016 text/html She is here to discuss her recent blood work after an episode of delayed onset bleeding, with a question of whether it was the last hurrah or true PMB, after several months of amenorrhea. Cristina Nelson MD [address], [place], [phone], [place] [facility], 03/24/2016 14:34:52 09/14/2017 text/html She is here for annual exam, is doing ell. Her sister has bipolar schizoaffective disorder and was in a locked acrdona for three months, this is a lot of stres to the patient. She has not had a mesnes since 03/2017. She has had three episodes of brown spotting lasting one day only, since then. A sonogram had been ordered in February but she failed to go. She had labs in the postmenopausal/perime nopausal range. Note from 02/2017: She is here to discuss her recent blood work after an episode of delayed onset bleeding, with a question of whether it was the last hurrah or true PMB, after several months of amenorrhea. Her estradiol was in the postmenopausal range however her FSH was low. She is likely edison-menopausal and this was a recent menses. She also notes right lower quadrant fluttering sensation. Her has had a vasectomy and she has no other partner. Check pelvic sonogram for dub and pelvic pain. Cristina Nelson MD [address] [place] [address],[address], [place], [phone], [place] [facility], 09/14/2017 15:13:38 OBGyn Episode No OBEpisode recorded.
--- OUTSIDE RECORDS SUMMARY | 2025-06-25 16:19 | XMS_ITS | Clinical Summary ---
Author Organization [facility] Address [address] [place] [address] Care Team Providers Care Dog Show Judge Name Role Phone Shawn Rae MD Primary Care Provide r Social History Tobacco Use Types Packs/Day Years Used Date Smoking Tobacco: Never Assessed Comments Unknown Sex and Gender Information Value Date Recorded Sex Assigned at Not on file Legal Sex Female 18:37 EST Gender Identity Not on file Sexual Orientation Not on file Plan of Treatment Health Maintenance Due Date Last Done Comments Hepatitis C Screen 1965 COVID-19 Vaccine (2023-25 season) 2024 RSV Immunization ( o r 60+ Years) (1 - 1-dose 75+ series) 2038 Care Teams Dog Show Judge Relationship Specialty Start Date End Date Shawn Rae MD [address] [facility] [facility] [address] [place] [address] PCP - General 01/23/09
--- OUTSIDE RECORDS SUMMARY | 2025-06-25 16:19 | XMS_ITS | Encounter Summary ---
Author Organization [facility] Address [address] [place] [address] Phone Care Team Providers Care Die Cut Operator Name Role Phone Prince Quinones MD Primary Care Provider Self-Referred, Patient Unavailable Unavailab Virgilio Knowles MD Unavailable Encounter Details Date Type Department Care Team (Late st Contact Info) Description 07/31/2024 Procedure Pass [facility]' Labor Expediter Center [address] [facility] [address] [place] [address] Social History Tobacco Use Types Packs/Day Years Used Date Smoking Tobacco: Never Assessed Child or Family Care Answer Date Record ed Do you have problems with on e of the following making it difficult for you to work, study, or receive health care? No 07/31/2024 Education Answer Date Recorded Are you interested in help w ith more adult education (for example, completing high school, GED, job training, learning the Rwandan language, technical skills, or developing parenting skills)? No 07/31/2024 Are you concerned about learning? Not on file 07/31/2024 No 07/31/2024 Yes 07/31/2024 Food Answer Date Recorded Within the past 6 months we worried whether our food would run out before we got money to buy more. Never True 07/31/2024 Within the past 6 months the food we bought just didn't last and we didn't have enough money to get more. Never True Residential Stability Answer Date Recor ded What is your housing situation today? I have m[employer] banks 07/31/2024 How many times have you move d in the past 12 months? Zero (I did not move) 07/31/2024 Paying for Meds Answer Date Recorded Do you have trouble paying for medicines? No 07/31/2024 Paying Utility Bills Answer Date Record ed Do you have trouble paying your heating or elect ricity bill? Yes 07/31/2024 Transportation Answer Date Recorded Has the lack of transportati on kept you from medical appointments or from getting medications? No 07/31/2024 Digital Access Answer Date Recorded No 02/16/2024 No 02/16/2024 Reliable internet access at home? Not on file 02/16/2024 Device with a working camera? Not on file Comments Unknown Sex and Gender Information Value Date Recorded Sex Assigned at Female 04/09/2024 12:18 PM EDT Legal Sex Female 4:14 PM EDT Gender Identity Female 04/09/2024 12:18 PM EDT Sexual Orientation Straight 04/09/2024 12 :18 PM EDT documented as of this encounter Plan of Treatment Not on file documented as of this encounter Visit Diagnoses Not on filedocumented in this encounter Care Teams Die Cut Operator Relationship Specialty Start Date End Date Prince Quinones MD [facility] [place] [address] PCP - General Internal Medicine 04/09/24 Self-Referred, Patient 04/09/24 Virgilio Munguia MD [address] [place] [id number] [email or web address] Medical Oncology 07/31/24 documented as of this encounter Additional Source Comments The information contained in this document represents components of the legal health record. It is not the complete legal health record.[facility]
--- OUTSIDE RECORDS SUMMARY | 2025-06-25 16:19 | XMS_ITS | Encounter Summary ---
Author Organization [facility] Address [address] [place] [address] Phone Care Team Providers Care Lead Data Architect Name Role Phone Prince Quinones MD Primary Care Provider Self-Referred, Patient Unavailable Unavailab Virgilio Knowles MD Unavailable Encounter Details Date Type Department Care Team (Late st Contact Info) Description 07/31/2024 Procedure Pass [facility]' Clerk Guide Center [address] [facility] [facility] [address] [place] [address] Social History Tobacco Use Types Packs/Day Years [...] high school, GED, job training, learning the Emirati language, technical skills, or developing parenting skills)? [...] on filedocumented in this encounter Care Teams Lead Data Architect Relationship Specialty Start Date End Date Prince Quinones MD [facility] [place] [address] PCP - General Internal Medicine 04/09/24 Self-Referred, Patient 04/09/24 Virgilio Munguia MD [address] [place] [phone] [email or web address] Medical Oncology 07/31/24 documented as of this encounter Additional Source Comments The information contained in this document represents components of the legal health record. It is not the complete legal health record.[facility]
--- OUTSIDE RECORDS SUMMARY | 2025-06-25 16:19 | XMS_ITS | Encounter Summary ---
Author Organization [facility] Address [address] [place] [address] Phone Care Team Providers Care Sexual Abuse Counsellor Name Role Phone Prince Quinones MD Primary Care Provider Self-Referred, Patient Unavailable Unavailab Virgilio Knowles MD Unavailable Encounter Details Date Type Department Care Team (Late st Contact Info) Description 07/31/2024 Procedure Pass [facility]' Sign Language Translator Center [address] [facility] [address] [place] [address] Social History Tobacco Use Types Packs/Day Years [...] high school, GED, job training, learning the Kittitian language, technical skills, or developing parenting skills)? [...] on filedocumented in this encounter Care Teams Sexual Abuse Counsellor Relationship Specialty Start Date End Date Prince Quinones MD [facility] [place] [address] PCP - General Internal Medicine 04/09/24 Self-Referred, Patient 04/09/24 Virgilio Munguia MD [address] [place] [phone] [email or web address] Medical Oncology 07/31/24 documented as of this encounter Additional Source Comments The information contained in this document represents components of the legal health record. It is not the complete legal health record.[facility]
--- OUTSIDE RECORDS SUMMARY | 2025-06-25 16:19 | XMS_ITS | Encounter Summary ---
Author Organization [facility] Address [address] [place] [address] Phone Care Team Providers Care Car Rental Manager Name Role Phone Prince Quinones MD Primary Care Provider Self-Referred, Patient Unavailable Unavailab Virgilio Knowles MD Unavailable Encounter Details Date Type Department Care Team (Late st Contact Info) Description 07/31/2024 Procedure Pass [facility]' Impregnator Helper Center [address] [facility] [address] [place] [address] Social History Tobacco Use Types Packs/Day Years [...] high school, GED, job training, learning the Australian language, technical skills, or developing parenting skills)? [...] on filedocumented in this encounter Care Teams Car Rental Manager Relationship Specialty Start Date End Date Prince Quinones MD [facility] [place] [address] PCP - General Internal Medicine 04/09/24 Self-Referred, Patient 04/09/24 Virgilio Munguia MD [address] [place] [phone] [email or web address] Medical Oncology 07/31/24 documented as of this encounter Additional Source Comments The information contained in this document represents components of the legal health record. It is not the complete legal health record.[facility]
--- OUTSIDE RECORDS SUMMARY | 2025-06-25 16:20 | XMS_ITS | Clinical Summary ---
Author Organization [facility] Address [address] [place] [address] Phone Care Team Providers Care Pharmacy Associate Name Role Phone Prince Quinones MD Primary Care Provider Self-Referred, Patient Unavailable Unavailab Virgilio Knowles MD Unavailable Allergies No known active allergies Medications atenolol (TENORMIN) 100 MG tablet Take 100 mg by mouth daily. Active atorvastatin (LIPITOR) 40 MG tablet Take 40 mg by mouth once. 03/04/2024 Active ELIQUIS 5 mg tablet Take 5 mg by mouth 2 (two) times a day. 06/10/2024 Active buPROPion (WELLBUTRIN XL) 300 MG ER 24 hr tablet Take 1 tablet by mouth daily. 12/25/2023 Active LORazepam (ATIVAN) 0.5 MG tablet Take 1-2 tablets (0.5-1 mg total) by mouth every 6 (six) hours as needed for anxiety (before MRI as needed). 4 tablet 07/31/2024 Active Active Problems Problem Noted Date Diagnosed Date DVT (deep venous thrombosis) Encounters Date Type Department Care Team Description 06/09/2025 Telephone [facility], Department of Neurology [address] [place] [address] Feli Martin RN Appointment 05/06/2025 Telephone [facility], Department of Neurology [address] [place] [address] Joe Moon 05/01/2025 Telephone [facility], Department of Neurology [address] [place] [address] Joe Moon from Last 3 Months Social History Tobacco Use Types Packs/Day Years [...] high school, GED, job training, learning the South African language, technical skills, or developing parenting skills)? [...] your housing situation today? I have mary sing 07/31/2024 How many times have you move [...] Orientation Straight 04/09/2024 12 :18 PM EDT Last Filed Vital Signs Vital Sign Reading Time Taken Comments Blood Pressure 154/74 08/28/2024 3:51 PM EST Pulse 70 08/28/2024 3:51 PM EST Temperature 36.1 C (97 F) 08/28/2024 3:51 PM EST Respiratory Rate 18 08/28/2024 3:51 PM EST Oxygen Saturation 97% 08/28/2024 3:51 PM EST Inhaled Oxygen Concentration - - Weight 129.8 kg (286 lb 2.5 oz) 08/28/2024 3:51 PM EST Height 164.8 cm (5' 4.88 ) 07/31/2024 1 2:25 PM EST Body Mass Index 47.79 07/31/2024 12:25 PM EST Plan of Treatment Health Maintenance Due Date Last Done Comments Adult Td,Tdap Booster 1965 CREATININE LEVEL 1963 LIPID PANEL 1963 DEPRESSION SCREENING 1975 SMOKING Hx and SMOKELESS TOB ACCO SCREENING 1976 HEPATITIS C SCREENING 1981 HIV ONE-TIME SCREENING (18-6 5 YEARS) 1981 PNEUMOCOCCAL VACCINES (50+ y ears) (1 of 2 - PCV) 1982 ZOSTER VACCINES (1 of 2) 1982 PAP SMEAR 1984 SCREENING FOR DIABETES 1998 MAMMOGRAM 2003 COLOGUARD 2008 COLONOSCOPY 2008 COLORECTAL CANCER SCREENING 2008 FIT TEST 2008 FOBT 2008 SIGMOIDOSCOPY 2008 VIRTUAL COLONOSCOPY 2008 RSV VACCINE (1 - Risk 60-74 years 1-dose series) 2023 INFLUENZA VACCINE (#1) 2025 COVID-19 VACCINE ( - 2023-2 5 season) 2025 HEPATITIS A VACCINES Aged Out No long er eligible based on patient's age to complete this topic HIB VACCINES Aged Out No longer eligi ble based on patient's age to complete this topic MENINGOCOCCAL VACCINES (ACWY) Aged Out No longer eligible based on patient's age to complete this topic MENINGOCOCCAL VACCINES (B) Aged Out N o longer eligible based on patient's age to complete this topic Medical Devices Not on file Insurance BLUE CROSS OUT OF STATE PPO BLUE CROSS OUT OF STATE PPO BLUE CROSS OUT OF STATE PPO BLUE CROSS OUT OF STATE PPO BLUE CROSS OUT OF STATE PPO BLUE CROSS OUT OF STATE PPO Care Teams Pharmacy Associate Relationship Specialty Start Date End Date Prince Quinones MD [address] [place] [id number] PCP - General Internal Medicine 04/09/24 Self-Referred, Patient 04/09/24 Virgilio Munguia MD [address] [place] [phone] [email or web address] Medical Oncology 07/31/24 Additional Source Comments The information contained in this document represents components of the legal health record. It is not the complete legal health record.[facility]
[2025-06-25] MEDS: Lidocaine HCl 1 % 20 ML VIAL 10 ML INFILTRATI (16:37)
[2025-06-25] MEDS: oxyCODONE HCl Immed Release 5 MG TABLET 10 MG PO (16:59)
--- NOTE | 2025-06-25 17:03 | PC.NURSE ---
upon entering room to discharge patient, fingers on left hand dusky and cold. MD aware , stating he needs to re do splinting
[2025-06-25] MEDS: BUPivacaine MPF 0.25 % 10 ML VIAL INFILTRATI (17:28)
--- NOTE | 2025-06-25 17:28 | PC.NURSE ---
bupivicaine given by
[2025-06-25 18:05] VITALS: BP 172/95; PULSE 62; RESP 17; TEMP 36.8; O2SAT 99
[2025-06-25 18:51] VITALS: BP 172/95; PULSE 62; RESP 17; TEMP 36.8; O2SAT 99
== END 2025-06-25 18:52 | disposition home or self-care (01) ==
PROVIDERS: Emergency Provider Emergency Medicine
DX: S52.502A Unspecified fracture of the lower end of left radius, initial encounter for closed fracture (principal); W19.XXXA Unspecified fall, initial encounter; Y93.89 Activity, other specified; Y92.9 Unspecified place or not applicable; Y99.9 Unspecified external cause status; M25.532 Pain in left wrist
CPT/HCPCS: 25605; 73100; 96374; 99284; J0665; J2003; J2270

== ENCOUNTER → 2025-06-25 15:10 | Outpatient (BNV) | payer BC, SELFPAY | PROVIDERS: Emergency Provider Emergency Medicine; Visit Provider Radiology Diagnostic Radiology | DX: S63.005A Unspecified dislocation of left wrist and hand, initial encounter (principal); S52.352A Displaced comminuted fracture of shaft of radius, left arm, initial encounter for closed fracture | CPT/HCPCS: 73100 ==

== ENCOUNTER 2025-07-02 08:03 | Outpatient (AMB) | payer BC, SELFPAY ==
[2025-07-02 08:15] VITALS: BMI 47.3
--- NOTE | 2025-07-02 08:15 | MHC.OFFVIS ---
Vital Signs 07/02/25 08:15 Height 5 ft 5 in Weight 284 lb BMI 47.3 Intake Visit Reasons: FC: LT Distal Radius Fx, DOI: 06/25/25 Intake Note: Corine is a 60 year old right hand dominant female who presents today for a fracture care visit for evaluation of her Left Wrist. Patient was seen in [facility] ED on 06/25/25 after taking a fall while getting out of her car. She had immediate onset of pain and visual deformity of the left wrist. She was reduced at the ED and then placed in a Sugar tong splint. There was noticable finger discoloration and patient noted discomfort in the splint, so her splint was then changed prior to discharge. Patient reports that she has had significant pain in the wrist and she is having a hard time completing daily activities. The splint she presents with today is poorly constructed and is completely limiting the movement of her fingers. She has mild numbness of her fingers but is able to wiggle them . Allergies No Known Allergies Allergy (Verified 06/25/25 15:04) HPI HPI FC: LT Distal Radius Fx, DOI: 06/25/25: Details: Corine is a 60 year old right hand dominant woman who presents for a left distal radius fracture, DOI: 06/25/25, after falling getting out of her car. She was seen in the ED and reduced twice, and placed in a sugar-tong splint. She complains of significant pain in her wrist, as well as mild numbness in her thumb, which has been improving and is almost normal. She feels the splint is restricting her fingers, and she has difficulty performing daily activities. She had her splint redone in the ED before discharge due to finger discoloration, and this improved somewhat following her second reduction & splinting. 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 She walks with a cane. 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 She is seen today with her . She has a Hx of a trigger finger which was managed with an injection ~6-9 months ago. 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 [facility] Medical History (Updated 07/02/25 @ 08:58 by Shayne Centeno) Brain tumor Hyperlipidemia Essential hypertension Morbid obesity Social History (System 05/15/24 @ 15:51 by Bernie Thurston CNA) Household Members: None Housing: Apartment Do you presently have visiting nurse or other home services: No Alcohol intake: current Alcohol intake frequency: holidays/special occasions only Comment: encourage to ring call light Patient Tobacco Use Status: Never used Tobacco Substance Use Type: Marijuana Advance Directives Date on File: 02/16/24 service: No Review of Systems Const All systems reviewed & are unremarkable except as noted in HPI and below Physical Exam Vital Signs: BMI result Body Mass Index 47.3 Const General: cooperative, healthy appearing and no acute distress Orientation/consciousness: patient oriented x3 HEENT Head: Yes normocephalic and Yes atraumatic Eyes EOM: EOMs intact bilaterally Resp Effort & Inspection: normal respiratory effort and able to speak in complete sentences Cardio Jugular venous distension: no JVD Skin General skin exam: turgor normal Rashes: no rashes Neuro General: patient oriented x3 Extrem Other: Evaluation of Left Upper Extremity: The patient is alert, oriented, and in no acute distress She is seen today in a [facility] splint Neuro: Median, Ulnar, Radial nerves motor and sensory intact and sensation is normal to the tips of all digits today in clinic Radiographs: 3 views of the left wrist were taken, viewed, and compared to post reduction radiographs from 06/25/25 by me today in clinic. They show a distal radius fracture with dorsal & radial translation, and ~25 degrees of dorsal tilt. Psych Appearance: grossly normal Affect: normal affect Attitude: cooperative Assessment & Plan Assessment & Plan (1) Fracture of left distal radius: Code(s): S52.502A - Unspecified fracture of the lower end of left radius, initial encounter for closed fracture Category: Medical (2) Asthma: Code(s): J45.909 - Unspecified asthma, uncomplicated Category: Medical (3) Acute CVA (cerebrovascular accident): Code(s): I63.9 - Cerebral infarction, unspecified Category: Medical Plan Assessment & Plan: 1. Left distal radius fracture, question possible open fracture S/P fall, DOI: 06/25/25 Reduced in ED X2, 06/25/25 I educated her about this condition I discussed operative and non-operative treatment options The patient would like to proceed with surgery The risks and benefits of operative treatment were discussed with the patient and the patient wishes to proceed with surgery. These risks include, but are not limited to risk of damage to blood vessels, nerves, tendons, infection, recurrence, incomplete relief of preoperative symptoms, persistent pain, possible need for further surgery and the risks associated with regional blocks and anesthesia. The plan is to take the patient to the operating room sometime on 07/03/25 for the following procedures: 1. Left distal radius ORIF, under general All of the preoperative paperwork including the consent was reviewed today. All the patient's questions were answered. The patient understands that they will be contacted by our materials scheduler soon to schedule this procedure She denies Diabetes, heart, lung, kidney issues She has asthma and a Hx of a CVA. She is on Eliquis, her last dose was taken the morning of 07/01/25. She will speak with her PCP concerning her Eliquis & possible bridge with Lovenox prior to surgery. Please note that greater than 35 minutes was spent with this patient going over the history, evaluating the patient and radiographs, formulating possible treatment options, discussing them with the patient, and documenting the visit. Scribed for Leonela Saenz MD by Shayne Centeno, director global medical affairs, on 07/02/25 at 8:40 AM, EST. Orders: Orders XR wrist LT min 3V Today M25.532 - Pain in left wrist Coding Level of Care Code New Pt Level 4 (72781) Diagnoses Fracture of left distal radius S52.502A Asthma J45.909 Acute CVA (cerebrovascular accident) I63.9
== END 2025-07-02 09:34 | disposition home or self-care (01) ==
LOC: HO.HOS 08:03
PROVIDERS: Visit Provider Orthopaedic Surgery
DX: S52.502A Unspecified fracture of the lower end of left radius, initial encounter for closed fracture (principal); J45.909 Unspecified asthma, uncomplicated; I63.9 Cerebral infarction, unspecified
CPT/HCPCS: 99204

== ENCOUNTER → 2025-07-02 08:04 | Outpatient (BNV) | payer BC, SELFPAY | PROVIDERS: Visit Provider Radiology Diagnostic Ultrasound | DX: S52.502A Unspecified fracture of the lower end of left radius, initial encounter for closed fracture (principal) | CPT/HCPCS: 73110 ==

== ENCOUNTER 2025-07-02 09:42 | Outpatient (REF) | payer BC, SELFPAY ==
--- NOTE | ~2025-07-02 | XR_ITS ---
EXAMINATION: XR WRIST, LEFT CLINICAL INFORMATION: M25.532 - Pain in left wrist COMPARISON: Prior x-rays 06/25/2025 TECHNIQUE: Three views of the left wrist. FINDINGS: Overlying casting material obscures visualization of the fine bony detail. Redemonstrated comminuted distal radial metaphysis/epiphysis fracture, with similar position and alignment. Similar radial and dorsal displacement of the distal bones with respect to the proximal shaft width. Component of impaction. There may be mild callus/new bone formation. Soft tissue swelling. XR/XR wrist LT min 3V IMPRESSION: Similar positioning/alignment of the comminuted displaced distal radial fracture. Question mild callus/new bone formation. Electronically signed by: Dimitri Arriaza MD 07/02/2025 08:39 AM EDT
== END 2025-07-02 09:43 | disposition home or self-care (01) ==
LOC: HO.HOSX 09:42
PROVIDERS: Visit Provider Orthopaedic Surgery
DX: S52.502A Unspecified fracture of the lower end of left radius, initial encounter for closed fracture (principal); J45.909 Unspecified asthma, uncomplicated; I63.9 Cerebral infarction, unspecified; V48.3XXA Unspecified car occupant injured in noncollision transport accident in nontraffic accident, initial encounter
CPT/HCPCS: 73110

== ENCOUNTER 2025-07-03 07:36 | Day surgery (SDC) | payer BC, SELFPAY ==
--- NOTE | 2025-07-02 10:18 | HO.ANESPROP2 ---
Documented by User: Madeline Ramos NP 07/02/25 12:41 HPI - Anesthesia Eval Consult details Narrative: 60 yr old female for left Radius Distal Fracture ORIF BMI 47.88 No CP/SOB with light activity with cane. No recent illness. 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 Munguia, last visit was 10/2024 who at that time referred her to neurology at [facility] & [facility] rheum for generalized body aches, weakness, fatigue with absence of motor or sensory deficits. Following with [facility] for orthopedic pain; had cortisone injection Jun 04 Active Problems Active Problems: All Active Problems Fracture of left distal radius (Acute) Asthma (Acute) Brain tumor (Acute) Left-sided weakness (Acute) Acute CVA (cerebrovascular accident) (Acute) Past Medical History Medical History Brain tumor Hyperlipidemia Essential hypertension Morbid obesity Social History Social History Household Members: None Housing: Apartment Do you presently have visiting nurse or other home services: No Alcohol intake: current Alcohol intake frequency: holidays/special occasions only Comment: encourage to ring call light Patient Tobacco Use Status: Never used Tobacco Substance Use Type: Marijuana Advance Directives: No Advance Directives Information Provided: Yes Advance Directives Date on File: 02/16/24 service: No Meds Allergies Allergy/AdvReac Type Severity Reaction Status Date / Time No Known Allergies Allergy Verified 06/25/25 15:04 Home Medications ?Medication ?Instructions ?Recorded ?Confirmed ?Last Taken ?Type acetaminophen 650 mg 650 mg PO QD-BID PRN Pain 02/12/24 02/12/24 Unknown History tablet,extended release (Tylenol Arthritis Pain) atenolol 100 mg tablet 100 mg PO DAILY 02/12/24 02/12/24 Unknown History atorvastatin 80 mg tablet 80 mg PO DAILY 02/12/24 02/12/24 02/09/24 History bupropion HCl 300 mg 24 hr tablet, 300 mg PO DAILY 02/12/24 02/12/24 Unknown History extended release irbesartan 300 mg tablet 300 mg PO DAILY 02/12/24 02/12/24 Unknown History omeprazole 20 mg capsule,delayed 20 mg PO DAILY 02/12/24 02/12/24 Unknown History release Exam Narrative Narrative: ECHO (pre-chemo) 03/2024 Normal left ventricular size and function with EF 01/2024 No focal wall motion abnormalities Left ventricular wall thickness is mildly increased Normal right ventricular size and function Mild tricuspid valve regurg EKG 03/2024 Normal sinus rhythm, rate 62 Normal ECG Documented by User: Niyah Negron MD 07/03/25 08:06 [facility] Past Medical History Medical History Brain tumor Hyperlipidemia Essential hypertension Morbid obesity Family History Family history of problems with anesthesia: No Surgical History History of Problems with Anesthesia: No Social History Social History Household Members: None Housing: Apartment Do you presently have visiting nurse or other home services: No Alcohol intake: current Alcohol intake frequency: holidays/special occasions only Comment: encourage to ring call light Patient Tobacco Use Status: Never used Tobacco Substance Use Type: Marijuana Advance Directives: No Advance Directives Information Provided: Yes Advance Directives Date on File: 02/16/24 service: No Meds Allergies Allergy/AdvReac Type Severity Reaction Status Date / Time No Known Allergies Allergy Verified 06/25/25 15:04 Home Medications ?Medication ?Instructions ?Recorded ?Confirmed ?Last Taken ?Type acetaminophen 650 mg 650 mg PO QD-BID PRN Pain 02/12/24 02/12/24 Unknown History tablet,extended release (Tylenol Arthritis Pain) atenolol 100 mg tablet 100 mg PO DAILY 02/12/24 02/12/24 Unknown History atorvastatin 80 mg tablet 80 mg PO DAILY 02/12/24 02/12/24 02/09/24 History bupropion HCl 300 mg 24 hr tablet, 300 mg PO DAILY 02/12/24 02/12/24 Unknown History extended release irbesartan 300 mg tablet 300 mg PO DAILY 02/12/24 02/12/24 Unknown History omeprazole 20 mg capsule,delayed 20 mg PO DAILY 02/12/24 02/12/24 Unknown History release Exam Airway Mallampati Class: II TM Dist: <=3cm Neck ROM: Limited Heart: rrr Lungs: cta Assessment and Plan Assessment Anesthesia Assessment: Anesthesia Plan Discussed and Chart Reviewed Final Anesthetic Review Family History of Problems with Anesthesia: No History of Problems with Anesthesia: No NPO: Yes ASA Class: III Final Preanesthetic Review: No Changes in Pt Med Stat, Meds/Allgs Chart Reviewed, Consent Obtained/Reviewed and Anes Risks/Benef Reviewed Patient Risk: Intermediate Procedure Risk: Intermediate Anesthetic Plan Anesthetic Plan: GA, Regional Block and Agree w/ Assess. and Plan Disposition: Standard PACU
[2025-07-03] VITALS (11 sets, daily range): BP systolic 109–155; BP diastolic 47–77; PULSE 63–71; RESP 18; TEMP 36.1–36.7; O2SAT 94–100; BMI 47.3
--- NOTE | ~2025-07-03 | FL_ITS ---
EXAMINATION: FL GUIDANCE ONLY HISTORY: Radius distal fracture ORIF COMPARISON: Correlation is made with plain films of the left wrist dated 07/02/2025. TECHNIQUE: Fluoroscopy time: 166.88 seconds. Cumulative Dose: 5.5692 mGy. DAP: 0.3366 Gycm2 Images: 5. FINDINGS: Fluoroscopic spot films of the left wrist demonstrate internal fixation of the previously seen comminuted fracture of the distal radius with a sideplate and multiple orthopedic screws. FL/FL guidance in OR IMPRESSION: Fluoroscopy during procedure. Please see procedure report for additional information. Electronically signed by: Percy Long MD 07/03/2025 02:27 PM EDT
--- NOTE | 2025-07-03 07:53 | MHC.SHP ---
Pre-Procedural Eval Section A - 24 Hr Update-Section A only Date of Service: 07/03/25 The patient is an INPATIENT: No Changes since office visit: No Cold of Flu in the past 2 weeks, No New Medical Problems, No Changes in Medication and No Patient answered all questions The patient has been examined within 24 hours of the surgical procedure. The History & Physical has been completed within 30 days and I have reviewed it.: Yes Section B - Complete if H&P > 30 days Chief Complaint: Unspecified fracture of the lower end of left Allergies: Allergies Allergy/AdvReac Type Severity Reaction Status Date / Time No Known Allergies Allergy Verified 06/25/25 15:04 Plan I have reviewed the history and physical and performed a pertinent physical examination on my patient. No changes have occurred unless specified. Time Spent With Patient Time: Total time managing care of this patient today ____ minutes.
--- NOTE | 2025-07-03 07:54 | W.PM.OPN ---
Operative Note Operative Note Date of Service: 07/03/25 Narrative: Operative Note Narrative: Preop diagnosis: 1. Left Distal radius fracture Postop diagnosis: 1. Left distal radius fracture, comminuted 2 part 2. DRUJ instability Procedure: 1. Left Distal radius fracture open reduction internal fixation, 2 part comminuted 2. Left DRUJ closed reduction and pinning Surgeon: Leonela Saenz MD Automated Manufacturing Instructor: None Anesthesia: General anesthesia plus regional block Findings: Distal radius fracture Implants: A 3 hole Accu Med volar locking plate, with 4 X 2.3 mm locking pegs/screws, and 3 3.5 mm cortical screws 0.062 K-wire x1 Tourniquet time: 77 minutes EBL: 5.0 ml Specimen: None Drains: None Complications: None Disposition: Brought to the recovery room in stable condition Plan: Follow-up in 10-14 days for wound check, suture removal and postop radiographs We can remove the transverse K-wire at the 2 week visit and then place her in a short-arm cast. Encouraged no lifting of anything heavier than a cell phone. Please encourage active and passive range of motion of the digits. Follow-up at 4-5 weeks postop for repeat radiographs. Indications: The patient is a the 60 year old woman with a left distal radius fracture . The risks and benefits of operative treatment, including but not limited to risk of damage to blood vessels, nerves, tendons, infection, recurrence, persistent pain or numbness, incomplete resolution of preoperative symptoms, or need for further surgery were discussed with the patient and they wished to proceed with surgery. Procedure: Once consent was obtained patient was brought back to the operating suite and placed in the operating table in a supine position. A regional block was performed by the anesthesia team. Perioperative antibiotics and anesthesia was administered by the anesthesia team. A tourniquet was applied to the proximal aspect of the left upper extremity and the limb was prepped and draped in a standard surgical fashion. The limb was elevated exsanguinated with Esmarch bandage and the tourniquet inflated to 250 mm of mercury for a total tourniquet time of 77 minutes. The FluoroScan was used throughout the case to assess our reduction, and facilitate implant placement. A gentle closed reduction was 1st performed on the patient's left distal radius fracture. Was assessed radiographically before proceeding with the reduction internal fixation. I then made an 8 cm longitudinal incision over the distal aspect of the flexor carpi radialis tendon. The incision was made through the skin to the subcutaneous tissue using a 15. Blade. Then carefully dissected down to flexor carpi radialis tendon she tenotomy scissors. The FCR tendon sheath was then incised longitudinally using tenotomy scissors under direct visualization. The FCR tendon was then retracted ulnarly. I then made a longitudinal incision in the volar forearm fascia through the floor of FCR tendon sheath using tenotomy scissors under direct visualization. I identified the interval between the radial artery and the flexor tendons. This interval was developed further with my index finger, releasing some of the muscular fibers of the flexor pollicis longus. A dull weatlander retractor was then placed. I then created an ulnarly based flap of the pronator quadratus by releasing the radial and distal edges using a 15. Blade. A Robles elevator was used to elevate the pronator quadratus from the volar surface of the distal radius. This then revealed to us our distal radius fracture. The fracture was translated posteriorly and radially, and there was a significant amount of comminution particularly volarly which extended to the articular surface. An open reduction was then performed on our distal radius fracture. I placed a 0.054 K-wire through the radial styloid and advanced it retrograde and obliquely across the fracture site to the ulnar cortex as provisional fixation. I then placed a short narrow 3 hole Accu Med volar locking plate on the volar surface of the distal radius. I placed 2 K-wires through the distal aspect of the plate and into the distal radius. We had to adjust this a few times to obtain ideal positioning of the plate to then allow for ideal positioning of the locking screws, as this is a very distal fracture. This was assessed using fluoroscopic images. I was satisfied with the placement of our plate. I then placed 4 X 2.3 mm locking screws/pegs in the distal aspect of the plate and distal radius by 1st drilling bicortically with a 2.0 mm drill bit, measuring with a depth gauge, and placing the appropriate length locking screws/pegs. The placement of our plate and screws was then assessed again using fluoroscopic images. The once satisfied with the placement of the volar locking plate and screws on the distal aspect of the distal radius, the provisional K-wire was removed and the plate was then reduced to the shaft of the radius. I then placed 3 X 3.5 mm cortical screws to the proximal aspect of the plate and into the shaft of the radius. This was done by 1st drilling bicortically with a 2.8 mm drill bit, measuring with a depth gauge, and placing the appropriate length screw. Final radiographs were then obtained. The DRUJ was assessed and found to have some laxity on exam. The DRUJ was most stable in supination. The wrist was then brought into supination and I passed a 0.062 K-wire through the distal ulna transversely across the DRUJ and into the distal radius. I was satisfied with our reduction and placement of all implants. The pin was bent cut short had a pin cap applied and final radiographs were obtained. At this point the wound was irrigated with normal saline. The pronator quadratus was reduced back over the volar locking plate using some 3-0 Vicryl suture material. The tourniquet was then deflated and hemostasis was obtained with a brief period of local pressure and bipolar monopolar electrocautery. The subcutaneous layer was then reapproximated using some 4-0 Vicryl suture, and the skin edges were reapproximated using some 5 0 Prolene suture. The wound was then infiltrated with some 1% lidocaine with epinephrine postop pain control. A sterile dressing and a sugar-tong splint allowing for active flexion and extension of the digits was applied. The patient appears to have tolerated the procedure well and with no complications. All digits were well vascularized conclusion of the case.
[2025-07-03] MEDS: Lactated Ringers 1,000 ML 100 ML IVCONT (08:28)
== END 2025-07-03 14:42 | disposition home or self-care (01) ==
PROVIDERS: Visit Provider Orthopaedic Surgery
PROC: (CPT 25608; principal; 2025-07-03 09:00)
DX: S52.592A Other fractures of lower end of left radius, initial encounter for closed fracture (principal); M25.332 Other instability, left wrist; M25.532 Pain in left wrist; R20.0 Anesthesia of skin; W19.XXXA Unspecified fall, initial encounter; Y93.89 Activity, other specified; Y92.9 Unspecified place or not applicable; Y99.9 Unspecified external cause status; I69.954 Hemiplegia and hemiparesis following unspecified cerebrovascular disease affecting left non-dominant side; I10 Essential (primary) hypertension; J45.909 Unspecified asthma, uncomplicated; Z79.01 Long term (current) use of anticoagulants; Z79.899 Other long term (current) drug therapy
CPT/HCPCS: 25608; C1713; J0131; J0665; J0690; J1100; J1885; J2003; J2004; J2250; J2405; J2704; J3010

== ENCOUNTER → 2025-07-03 07:36 | Outpatient (BNV) | payer BC, SELFPAY | PROVIDERS: Visit Provider Orthopaedic Surgery | DX: S52.502A Unspecified fracture of the lower end of left radius, initial encounter for closed fracture (principal); M25.332 Other instability, left wrist | CPT/HCPCS: 25608; 25671 ==

== ENCOUNTER 2025-07-15 11:05 | Outpatient (REF) | payer BC, SELFPAY ==
--- NOTE | ~2025-07-15 | XR_ITS ---
EXAMINATION: XR WRIST, LEFT CLINICAL INFORMATION: M25.532 - Pain in left wrist COMPARISON: 07/02/2025, 06/25/2025. TECHNIQUE: PA, lateral, and oblique views of the left wrist. FINDINGS: There has been ORIF of the distal radial intra-articular comminuted metaphyseal fracture with volar plate and screw fixation. In addition there is a K wire in place traversing the syndesmosis. There has been gnosticist of anatomical alignment of the main fracture fragments. No articular step-off greater than 2 mm is noted. No hardware complication is evident. Early periosteal new bone formation is seen abutting the fracture margins, consistent with early healing. 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 There is persistent soft tissue swelling about the wrist. XR/XR wrist LT min 3V IMPRESSION: 1. Interval ORIF of comminuted distal intra-articular radial metaphyseal fracture with volar plate and screws, with gnosticist of anatomical alignment. In addition there is a solitary K wire fixating the syndesmosis. There is no hardware complication evident. 2. There is evidence of early bony healing. Electronically signed by: Donald Avendaño MD 07/15/2025 01:29 PM EDT
--- OUTSIDE RECORDS SUMMARY | 2025-07-17 13:54 | XMS_ITS | Data Portability ---
Author Organization [place] [facility],, CRISTINA NELSON MD Address [address] [facility] [address] [place] [address] Care Team Providers Care Surgical Scrub Technician Name Role Phone YELENA SIDDIQUI Primary Care Provider Assessment No assessment recorded. Plan of Treatment Reminders Order Date Submit Date Provider Last Modified By Organization Details Last Modified Time Details Appointments None recorded. Lab pap test, thinprep, cervical 2016 017 [facility], Cytopathology Service, [address] [place] [address], [address], 7 16:40:25 fecal occult blood, stool 2016 017 [facility] In-Office Order, Internal Use Only DO Not Attach Compendium DO Not Attach Compendium, Do Not Delete/merge, [id number] 7 14:30:43 pap test, thinprep, cervical 2015 016 [facility], Cytopathology Service, [address] [place], [address], 6 13:32:55 follicle- stimulati ng hormone (FSH), baseline 2015 016 [facility], [address], [address], [place], [address], 6 03:35:47 estradiol , serum 2015 016 [facility], [address], [place], [address], 6 03:35:47 pap test, thinprep, cervical 2013 014 [facility] (Centralized Electronic Ordering - All Locations), Patient Can Go To The Location Of Their Choice, [id number] 4 08:18:58 CBC w/ auto diff 2013 014 [facility] (Centralized Electronic Ordering - All Locations), Patient Can Go To The Location Of Their Choice, [id number] 5 07:54:02 fecal occult blood, stool 2013 014 [email or web address] In-Office Order, Internal Use Only DO Not Attach Compendium DO Not Attach Compendium, Do Not Delete/merge, [id number] 4 15:33:52 Referral None recorded. Procedures None recorded. Surgeries None recorded. Imaging MAMMO, screening , digital, bilateral 2016 017 [facility] Orders, [address], [address], [place], [address], 8 08:50:54 US, pelvis, transabdo domingo + transvagi nal 2016 017 [facility] Orders, [address], [address], [place], [address], 8 07:23:54 US, pelvis 2015 016 DBA_PATCH_ [id number] [facility] (Central Scheduling Radiology), [address], [place], [address], 6 04:20:30 MAMMO, screening , digital, bilateral 2015 016 [facility] Imaging Orders, [address], [address], [place], [address], 7 08:37:43 MAMMO, screening , digital, bilateral 2013 014 [facility] Imaging Orders, [address], [address], [place], [address], 5 11:27:43 Medication Orders None recorded. Patient TargetsNo targets recorded. Patient Instructions Encounter Date Encounter Id Patient Instructions Last Modified By Organization Details Last Modified Time 07/23/2014 [id number] heavy menstrual periods: care instructions Not available 07/24/2014 15:33:52 She is here for an annual exam, as a new patient. 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 Not available 07/24/2014 15:33:52 02/15/2016 [id number] vaginal bleeding after menopause: care instructions Not available 02/15/2016 11:32:41 She is here for annual exam. She has not been here since 06/2014, her first visit. She lost her job recently because she is not bilingual. 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 She has not had a menses from [...] in detail. Not available 02/15/2016 11:32:41 03/24/2016 [id number] She is here to discuss her recent [...] 25 minutes Not available 03/24/2016 14:17:52 09/14/2017 [id number] vaginal bleeding after menopause: care instructions [email or web address] [...] DO Not Attach Compendium, Do Not Delete/merge, [id number] 07/23/2014 11:53:42 02/15/20 16 02/15/2016 pap, LB [id number] ThinP rep Pap, Image d: NEGAT TATIANA [...] ASCUS . lps 07/23 neg Not Available [facility], Cytopathology Service [address] [place], [address], 02/23/2016 13:32:55 09/14/20 17 09/14/2017 pap, LB [id number] ThinP rep Pap, Image d: NEGAT TATIANA [...] LPS neg, wendi everett, z12.4 Not Available [facility], Cytopathology Service [address], [place], [address], 09/15/2017 16:40:24 09/14/20 17 09/14/2017 fecal occul t blood , stool Occult Blood negati ve Not Available In-Office Order Internal Use Only DO Not Attach Compendium DO Not Attach Compendium, Do Not Delete/merge, [id number] 09/14/2017 14:18:48 10/31/19 15 10/31/2014 MAMMO , scree pratik, digit al, bilat eral No observ ation record ed. [address] [facility] Orders [address], [place], [address], 10/31/2014 14:00:24 05/04/20 15 05/04/2015 imagi ng/di agnos tic resul t No observ ation record ed. [address] [facility] Imaging Orders [address], [place], [address], 05/05/2015 06:39:13 12/31/19 16 12/31/2015 MAMMO , scree pratik, digit al, bilat eral No observ ation record ed. [facility] Imaging Orders [address], [place], [address], 01/01/2016 10:19:35 01/11/20 16 01/11/2016 ultra sound , breas t No observ ation record ed. [address] [facility] Orders [address], [place], [address], 01/11/2016 12:08:22 08/12/20 16 08/12/2016 ultra sound , breas t No observ ation record ed. [address] (Outpt Imaging) [address], [place], [address], 08/13/2016 16:06:55 04/21/20 17 04/21/2017 MAMMO , scree pratik, digit al, bilat eral No observ ation record ed. [email or web address] [facility] (Outpt Imaging) [address] [place], [address], 04/24/2017 10:58:42 02/03/20 18 02/02/2018 US, pelvi s, trans abdom inal + trans vagin al No observ ation record ed. [email or web address] [facility] (Outpt Imaging) [address] [place], [address], 02/06/2018 08:54:03 04/26/20 18 04/25/2018 MAMMO , scree pratik, digit al, bilat eral No observ ation record ed. [facility] [address] [place], [address], 04/26/2018 10:15:28 Result Notes None recorded. Problems Name Problem SNOMED Code Status Onset Date Resolution Date Notes Provider Name and Address Organization Details Recorded Time Factor V Leiden mutation [id number] Completed 09/14/2017 Krystle mc [place] [facility], 7 14:18:11 Menorrhagia 445090115 Active Cristina Nelson MD [address], [place], [address], [place] - [facility], 6 10:29:08 Hypertensiv e disorder 20480858 Active Cristina Nelson MD [address], [place], [address], [place] [facility], 6 10:29:08 Asthma [id number] Kimmie Nelson MD [address], [place], [address], [place] - [facility], 6 10:29:08 Mammography abnormal [id number] Kimmie Nelson MD [address], [place], [address], [place] - [facility], 6 10:29:08 Postmenopau halima bleeding 68764576 Active Cristina Nelson MD [address] [facility], [address], [place], [address] [place] - [facility], 6 11:32:41 Problem Notes None recorded. Procedures Surgical History Date Name Laterality Status Provider Name and Address Organization Details Recorded Time 09/25/19 12 Dilation and Curettage completed Krystle Huertas in [facility], 07/23/2014 11:50:48 09/25/18 73 Appendectomy completed Krystle Huertas in [facility], 07/23/2014 11:50:48 Imaging Results None recorded. Procedure [...] Available Not Available Not Available [employer] [facility] spacer USE DIRECTED WITH METERED DOSE INHALERS active Not Available Not Available No t Available Multi Vitamin 09/14 completed Not Available Not Available Not Available Vitals Date Recorded Body height Heart rate Body weight Body mass index (BMI) Systolic And Diastolic Provider Name and Address Organization Details Last Updated DateTime 02/15/2016 168.91 cm 80 /min 468216.8 5759 g 48.8 kg/m2 135/77 mm[Hg] Ludivina Huertas in [facility], 02/15/2016 10:12:21 Date Recorded Body height Heart rate Body weight Body mass index (BMI) Systolic And Diastolic Provider Name and Address Organization Details Last Updated DateTime 03/24/2016 168.91 cm 71 /min 395231.8 6 g 48.8 kg/m2 126/85 mm[Hg] Ludivina Huertas in [facility], 03/24/2016 13:53:19 Date Recorded Body height Body mass index (BMI) Heart rate Body weight Systolic And Diastolic Provider Name and Address Organization Details Last Updated DateTime 07/23/2014 168.91 cm 47 kg/m2 72 /min 713482.5 91075 g 137/77 mm[Hg] Krystle Huertas in [facility], 07/23/2014 12:08:50 Date Recorded Body weight Body mass index (BMI) Body height Heart rate Systolic And Diastolic Provider Name and Address Organization Details Last Updated DateTime 09/14/2017 751268.5 4 g 51.2 kg/m2 166.37 cm 75 /min 122/59 mm[Hg] Krystle Meczywor [place] [facility], 09/14/2017 14:11:22 Social History Question Answer Notes LastModified by [email or web address] Details LastModified Time Tobacco Smoking Status Former Smoker only age 14 to 17 Not Available [employer] 07/28/2020 03:19:37 What Is Your Level Of Caffeine Consumption? Occasional [id number] Information not available 07/28/2020 What Type Of Diet Are You Following? REGULAR [id number] Information not available 07/28/2020 Which Illicit Or Recreational Drugs Have You Used? No [id number] Information not available 07/28/2020 Do You Reside In Or Have You Traveled To An Area Where Ebola Virus Transmission Is Active? No [id number] Information not available 07/28/2020 Education 2 Year [...] Of Your Most Recent Tobacco Screening? 09/14/2017 [id number] Information not available 07/28/2020 Are You Sexually Active? Yes [id number] Information not available 07/28/2020 How Much Tobacco Do You Smoke? No [id number] Information not available 07/28/2020 General Stress Level High Extremely High...siste r Severely Mentally Ill And She Is Only Family Member Helping Her. Information not available 09/14/2017 How Many Years Have You Smoked Tobacco? 3 [id number] Information not available 07/28/2020 Have You Recently (within The Last 12 Weeks, Or During A Current ) Traveled To Or Lived In A Zika-affected Area? No Information not available 03/24/2016 Sex: Unknown Functional Status Question Answer Note LastModified by [employer] Details LastModified Time What is your level of alcohol consumption? Occasional [id number] Information not available 07/28/2020 What is your occupation? 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 Information not available 09/14/2017 What is your exercise level? None [id number] Information not available 07/28/2020 Mental Status None [...] for MyRisk panel N Autoimmune Condition N Thyroid Problems N Kidney or Bladder Problems N Depression Y GI Problems Y Lung Disease N Defects or Inherited Disease N Anemia Y History of Ovarian Cancer N History of Breast Cancer N RUTH exposure N BRCA testing in past N Psychiatric Illness N Diabetes N Anxiety Disorder N Arthritis Y Headaches or Migraines Y Infertility N Asthma Y History of Cancer N Endometriosis N Hepatitis N Heart Disease N Hypertension [...] Krystle Mustafa alexandro DANIELLE Rony Huertas in [facility], 07/23/2014 11:50:48 influenza, unspecified formulation 5 completed Ludivina mc DANIELLE Rony Huertas in [facility], 03/24/2016 13:56:34 Influenza, split virus, quadrivalent, preservative 7 completed Krystle Mustafa alexandro DANIELLE Rony Huertas in [facility], 09/14/2017 14:12:45 Past Encounters Encounter ID Performer Location Encounter Start Date Encounter Closed Date Diagnosis/Indication Diagnosis SNOMED-CT Code Diagnosis ICD10 Code Diagnosis IMO Codes Diagnosis Note [id number] MD CRISTINA Hoover MD [address] [facility] [place] [address] 07/23/2014 10:59:42 07/24/2014 16:18:41 Specialized medical examination [id number] Screening for malignant neoplasm of rectum 574304773 Screening mammography 99134497 Menorrhagia 899140309 [id number] MD CRISTINA Hoover MD [address] [facility] [place] [address] 02/15/2016 09:58:12 02/15/2016 13:47:21 Specialized medical examination 61935831 Z01.419 Screening mammography 24 548578 Z12.31 Postmenopa usal bleeding 66167660 N95.0 [id number] MD CRISTINA Hoover MD [address] [facility] [place] [address] 03/24/2016 13:37:51 03/24/2016 15:04:30 Dysfunctional uterine bleeding 86424822 N93.8 Factor V L eiden mutation 586215542 D68.51 [id number] MD CRISTINA Hoover MD [address] [facility] [place] [address] 09/14/2017 13:57:35 09/14/2017 15:35:21 Specialized medical examination 54593731 Z01.419 Screening for malignant neoplasm of rectum 680071020 Z12.12 Screening mammography 24 191440 Z12.31 Postmenopa usal bleeding 38729243 N95.0 Health Concerns Section Related Observation LastModified by Organization Detai ls LastModified Time None Recorded Concern Status LastModified by Organization Details LastModified Time None Recorded Advance Directives Directive None Recorded Payers Insurance Date Sequence Insurance Name Policy Number Policy Wheat Covered Member ID Wheat Member ID Guarantor Name 09/14/2017 1 [facility] Haroldo [place] [id number] Corine Macedo 09/12/2017 1 [employer]ACK[employer] (O) [id number] Corine Remington [id number] Corineramona Macedo 02/15/2016 1 [facility] [id number] [facility] [id number] [facility] Notes Date Note Type Note Provider Name and Address Organization Details Recorded Time 07/23/2014 text/html ROS as noted in the HPI Cristina Nelson MD [address] [facility],[address], [place], [address], [employer] - [facility], 07/24/2014 15:59:58 02/15/2016 text/html ROS as noted in the HPI Cristina Nelson MD [address] [facility],[address], [place], [address], [place] - [facility], 02/15/2016 11:32:58 03/24/2016 text/html She is here to discuss her recent blood work after an episode of delayed onset bleeding, with a question of whether it was the last hurrah or true PMB, after several months of amenorrhea. Cristina Nelson MD [address] [facility],[address], [place], [address], [place] - [facility], 03/24/2016 14:34:52 09/14/2017 text/html She is here [...] dub and pelvic pain. Cristina Nelson MD [address] [place] [address],[address], [place], [address], [place] [facility], 09/14/2017 15:13:38 OBGyn Episode No OBEpisode recorded.
== END 2025-07-15 11:06 | disposition home or self-care (01) ==
LOC: HO.HOSX 11:05
PROVIDERS: Visit Provider Orthopaedic Surgery
DX: S52.572D Other intraarticular fracture of lower end of left radius, subsequent encounter for closed fracture with routine healing (principal); I63.9 Cerebral infarction, unspecified; J45.909 Unspecified asthma, uncomplicated; Z87.891 Personal history of nicotine dependence; W19.XXXD Unspecified fall, subsequent encounter
CPT/HCPCS: 73110; 97140

== ENCOUNTER 2025-07-15 13:11 | Outpatient (AMB) | payer BC, SELFPAY ==
--- NOTE | 2025-07-15 13:17 | A.OFFVIS_ITS ---
Intake Visit Reasons: PO LT distal radius ORIF 07/03/25 AR Intake Note: Corine 60 yr old - hand dominant female presents today for her P/O visit for her left distal radius ORIF done on 07/03/[address] Saenz. Dressing removed and xrays updated in office. STates she has pain on her wrist. Allergies No Known Allergies Allergy (Verified 07/15/25 13:46) HPI HPI PO LT distal radius ORIF 07/03/25 AR: Details: Corine is a 60 year old right hand dominant woman who returns S/P left distal radius ORIF & DRUJ CRPP, DOS: 07/03/25. S/P fall, DOI: 06/25/25, she is seen today with her . She complains of pain in her wrist hand and up her arm. She says her postop pain medication was not authorized through her insurance. She was able to get a prescription from her PCP, which she found helpful. She says her postop bandages shifted after surgery and her fingers ended up covered, limiting her ROM. She says she did push herself up out of bed with her left hand, but denies any repeat falls. 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 She walks with a cane. She is a [employer] but says she is currently not working. She is seen today with her . She has a Hx of a trigger finger which was managed with an injection ~6-9 months ago. 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 [facility] Medical History Brain tumor Hyperlipidemia Essential hypertension Morbid obesity Social History Household Members: None Housing: Apartment Are you a primary manager medicare marketing to a significant other at home: No Do you presently have visiting nurse or other home services: No Alcohol intake: current Alcohol intake frequency: does not drink Comment: encourage to ring call light Patient Tobacco Use Status: Former Tobacco user Substance Use Type: Marijuana Advance Directives Date on File: 02/16/24 service: No Review of Systems Const All systems reviewed & are unremarkable except as noted in HPI and below Physical Exam Const General: no acute distress and alert Orientation/consciousness: patient oriented x3 Neuro General: patient oriented x3 Extrem Other: The patient was alert oriented and in no acute distress The incision is healing well with no erythema drainage or evidence of infection. Sutures removed and Steri-Strips applied K-wire clean and dry and with no evidence of infection. It was removed today in clinic, which she tolerated well Initially her fingers were held in extension We worked on ROM exercises for 15+ minutes today in clinic Before leaving clinic she could actively bring them ~2-3cm from her palm, passively they could be brought to touch her palm Before leaving she could actively bring her elbow to ~20-30 degrees from full extension Pronation of ~20 degrees Sensation is intact Cap refill is brisk Radiographs: 3 views of the left wrist were taken and viewed by me today in clinic. They show a distal radius fracture with satisfactory fracture reduction and position of all implants as well as single K-wire, traversing the distal ulna through the di stal radius. On the lateral view however, she appears to have a little dorsal translation vs settling of the fracture in comparison with intraoperative radiographs.. Overall satisfactory position, but radiographs appear different compared to intra-operative radiographs. Psych Appearance: grossly normal Affect: normal affect Attitude: cooperative Office Procedures AMB Fracture Care Details: No fracture today, more than 15 minutes of manual therapy performed by me in clinic today [id number] Fracture Billing Code: Fracture Billing Code Assessment & Plan Assessment & Plan (1) Fracture of left distal radius: Code(s): S52.502A - Unspecified fracture of the lower end of left radius, initial encounter for closed fracture Category: Medical (2) Asthma: Code(s): J45.909 - Unspecified asthma, uncomplicated Category: Medical (3) Acute CVA (cerebrovascular accident): Code(s): I63.9 - Cerebral infarction, unspecified Category: Medical Plan Assessment & Plan: 1. Left distal radius fracture, S/P ORIF & DRUJ CRPP DOS: 07/03/25 S/P fall, DOI: 06/25/25 Reduced in ED X2, 06/25/25 K-wire removed: 07/15/25 The patient appears to be doing well post-operatively I educated her about the post-operative course K-wire was removed and we discontinued her sugar-tong splint. She was placed in a short arm cast, to be worn for the next 3 weeks Due to her complaints of pain, I ordered 5 doses of Oxycodone for pain relief, and recommend she take these before bed. She can also manage her pain with Tylenol I explained the signs and symptoms of infection, if the patient develops any new or worsening erythema, drainage, pain, or warmth they should contact the clinic or attend the ED. I discussed activity modifications, she is to lift nothing heavier than a cellphone for the next 4 weeks. They should also avoid any heavy impact acti vities, falls, or sports activities for the next 6 weeks She will perform gentle finger ROM exercises at home, 20x daily She should avoid any underwater activities at this time I ordered OT hand therapy to work on finger & elbow ROM exercises She will follow up in 3 weeks, with X-rays, 3V L wrist, OOP Please note that greater than 40 minutes was spent with this patient going over the history, evaluating the patient and radiographs, formulating possible treatment options, discussing them with the patient, and documenting the visit. Scribed for Leonela Saenz MD by Shayne Centeno, medical office scheduler, on 07/15/25 at 1:45 PM, EST. Orders: Orders XR wrist LT min 3V Today M25.532 - Pain in left wrist OT Evaluation and Treatment Today I63.9 - Cerebral infarction, unspecified, S52.502A - Unspecified fracture of the lower end of left radius, initial encounter for closed fracture Medications: New oxycodone Partial Fill upon patient request. 5 mg PO BID PRN 5 tab-caps 0RF pain (scale score 7-10) Scribe Plan - Not visible on output: Scribed for Leonela Saenz MD by Shayne Centeno medical office scheduler, on [ ] at [ ], EST. Coding Level of Care Code Global (00731) Diagnoses Fracture of left distal radius S52.502A Asthma J45.909 Acute CVA (cerebrovascular accident) I63.9 CPT Codes Fracture Care - Fracture Billing Code: Fracture Billing Code ([id number])
--- OUTSIDE RECORDS SUMMARY | 2025-07-15 17:09 | XMS_ITS | Encounter Summary ---
Author Organization [facility] Address [address] [place] [address] Phone Care Team Providers Care Health Care Law Specialist Name Role Phone Prince Quinones MD Primary Care Provider Self-Referred, Patient Unavailable Unavailab Virgilio Knowles MD Unavailable Encounter Details Date Type Department Care Team (Late st Contact Info) Description 07/31/2024 Procedure Pass [facility] Real Estate Agency Principal Center [address] [place] [address] Social History Tobacco Use Types Packs/Day Years [...] high school, GED, job training, learning the German language, technical skills, or developing parenting skills)? [...] on filedocumented in this encounter Care Teams Health Care Law Specialist Relationship Specialty Start Date End Date Prince Quinones MD [facility] [place] [address] PCP - General Internal Medicine 04/09/24 Self-Referred, Patient 04/09/24 Virgilio Munguia MD [address] [place] [id number] [email or web address] Medical Oncology 07/31/24 documented as of this encounter Additional Source Comments The information contained in this document represents components of the legal health record. It is not the complete legal health record.[facility]
--- OUTSIDE RECORDS SUMMARY | 2025-07-15 17:09 | XMS_ITS | Encounter Summary ---
Author Organization [facility] Address [address] [place] [address] Phone Care Team Providers Care Valve Pipe Irrigator Name Role Phone Prince Quinones MD Primary Care Provider Self-Referred, Patient Unavailable Unavailab Virgilio Knowles MD Unavailable Encounter Details Date Type Department Care Team (Late st Contact Info) Description 07/31/2024 Procedure Pass [facility] Tobacco Weigher [facility] [address] [place] [address] Social History Tobacco Use Types Packs/Day Years [...] high school, GED, job training, learning the Croatian language, technical skills, or developing parenting skills)? [...] on filedocumented in this encounter Care Teams Valve Pipe Irrigator Relationship Specialty Start Date End Date Prince Quinones MD [facility] [place] [address] PCP - General Internal Medicine 04/09/24 Self-Referred, Patient 04/09/24 Virgilio Munguia MD [address] [place] [phone] [email or web address] Medical Oncology 07/31/24 documented as of this encounter Additional Source Comments The information contained in this document represents components of the legal health record. It is not the complete legal health record.[facility]
--- OUTSIDE RECORDS SUMMARY | 2025-07-15 17:09 | XMS_ITS | Encounter Summary ---
Author Organization [facility] Address [address] [facility] [address] [place] [address] Phone Care Team Providers Care Wood Preserving Plant Laborer Name Role Phone Prince Quinones MD Primary Care Provider Self-Referred, Patient Unavailable Unavailab Virgilio Knowles MD Unavailable Encounter Details Date Type Department Care Team (Late st Contact Info) Description 07/31/2024 Procedure Pass [facility] [address] [place] [address] Social History Tobacco Use Types Packs/Day Years [...] high school, GED, job training, learning the Portuguese language, technical skills, or developing parenting skills)? [...] on filedocumented in this encounter Care Teams Wood Preserving Plant Laborer Relationship Specialty Start Date End Date Prince Quinones MD [facility] [place] [address] PCP - General Internal Medicine 04/09/24 Self-Referred, Patient 04/09/24 Virgilio Munguia MD [address] [place] [phone] [email or web address] Medical Oncology 07/31/24 documented as of this encounter Additional Source Comments The information contained in this document represents components of the legal health record. It is not the complete legal health record.[facility]
--- OUTSIDE RECORDS SUMMARY | 2025-07-15 17:09 | XMS_ITS | Encounter Summary ---
Author Organization [facility] Address [address] [facility] [address] [place] [address] Phone Care Team Providers Care Automatic Mounter Name Role Phone Prince Quinones MD Primary Care Provider Self-Referred, Patient Unavailable Unavailab Virgilio Knowles MD Unavailable Encounter Details Date Type Department Care Team (Late st Contact Info) Description 07/31/2024 Procedure Pass [facility] [address] [facility] [address] [place] [address] Social History Tobacco Use Types Packs/Day Years [...] high school, GED, job training, learning the Romanian language, technical skills, or developing parenting skills)? [...] on filedocumented in this encounter Care Teams Automatic Mounter Relationship Specialty Start Date End Date Prince Quinones MD [facility] [place] [address] PCP - General Internal Medicine 04/09/24 Self-Referred, Patient 04/09/24 Virgilio Munguia MD [address] [place] [phone] [email or web address] Medical [email or web address] 07/31/24 documented as of this encounter Additional Source Comments The information contained in this document represents components of the legal health record. It is not the complete legal health record.[facility]
--- OUTSIDE RECORDS SUMMARY | 2025-07-15 17:09 | XMS_ITS | Clinical Summary ---
Author Organization [facility] Address [address] [place] [address] Phone Care Team Providers Care Bender Machine Name Role Phone Prince Quinones MD Primary [...] Type Department Care Team Description 06/09/2025 Telephone [facility], Department of Neurology [address] [place] [address] Feli Martin RN Appointment 05/06/2025 Telephone [facility], Department of Neurology [address] [place] [address] Joe Moon 05/01/2025 Telephone [facility], Department of Neurology [address] [place] [address] Joe Moon from Last 3 Months Social [...] high school, GED, job training, learning the Bermudian language, technical skills, or developing parenting skills)? [...] COLONOSCOPY 2008 RSV VACCINE (1 - Risk 50-74 years 1-dose series) 2013 INFLUENZA VACCINE (#1) 2025 COVID-19 VACCINE ( - 2024-2 6 season) 2025 HEPATITIS A VACCINES Aged Out [...] CROSS OUT OF STATE PPO Care Teams Bender Machine Relationship Specialty Start Date End Date Prince Qiunones MD [address] [place] [address] PCP - General Internal Medicine 04/09/24 Self-Referred, Patient 04/09/24 Virgilio Munguia MD [address] [place] [phone] [email or web address] Medical [email or web address] 07/31/24 Additional Source Comments The information contained in this document represents components of the legal health record. It is not the complete legal health record.[facility]
== END 2025-07-15 14:48 | disposition home or self-care (01) ==
LOC: HO.HOS 13:12
PROVIDERS: PCP Internal Medicine; Visit Provider Orthopaedic Surgery
DX: S52.502A Unspecified fracture of the lower end of left radius, initial encounter for closed fracture (principal); J45.909 Unspecified asthma, uncomplicated; I63.9 Cerebral infarction, unspecified
CPT/HCPCS: 99024

== ENCOUNTER → 2025-07-15 13:14 | Outpatient (BNV) | payer BC, SELFPAY | PROVIDERS: Visit Provider Radiology Diagnostic Radiology | DX: S52.572D Other intraarticular fracture of lower end of left radius, subsequent encounter for closed fracture with routine healing (principal) | CPT/HCPCS: 73110 ==

== ENCOUNTER 2025-08-05 13:38 | Outpatient (REF) | payer BC, SELFPAY ==
--- OUTSIDE RECORDS SUMMARY | 2008-03-06 14:29 | XMS_ITS | Encounter Summary ---
Author Organization [facility] Address [address] [place] [address] Care Team Providers Care Geodetic Engineer Name Role Phone Unavailable Primary Care Provider Unavailabl e Encounter Details Date Type Department Care Team (Late st Contact Info) Description 03/06/2008 15:29 EDT Hospital Encounter [facility] - [place] conversion [address] [place] [address] Yoandy Nunez PA [address] [place] [address] Social History Tobacco Use Types Packs/Day Years Used Date Smoking Tobacco: Never Assessed Comments Unknown Sex and Gender Information Value Date Recorded Sex Assigned at Not on file Legal Sex Female 18:37 EST Gender Identity Not on file Sexual Orientation Not on file documented as of this encounter Plan of Treatment Not on file documented as of this encounter Visit Diagnoses Not on filedocumented in this encounter
--- OUTSIDE RECORDS SUMMARY | 2008-03-27 08:09 | XMS_ITS | Encounter Summary ---
Author Organization [facility] Address [address] [place] [address] Care Team Providers Care Hydro Plant Operator Name Role Phone Unavailable Primary Care Provider Unavailabl e Encounter Details Date Type Department Care Team (Late st Contact Info) Description 03/27/2008 9:09 EDT Hospital Encounter [facility] - [place] conversion [address] [place] [address] Yoandy Nunez PA [address] [place] [address] Social History Tobacco Use Types Packs/Day Years [...]
--- OUTSIDE RECORDS SUMMARY | 2008-04-17 08:08 | XMS_ITS | Encounter Summary ---
Author Organization [facility] Address [address] [place] [address] Care Team Providers Care Sales Teacher Name Role Phone Unavailable Primary Care Provider Unavailabl e Encounter Details Date Type Department Care Team (Late st Contact Info) Description 04/17/2008 9:08 EDT Hospital Encounter [facility] - [place] conversion [address] [place] [address] Yoandy Nunez PA [address] [place] [address] Social History Tobacco Use Types Packs/Day Years [...]
--- OUTSIDE RECORDS SUMMARY | 2008-05-01 13:10 | XMS_ITS | Encounter Summary ---
Author Organization [facility] Address [address] [place] [address] Care Team Providers Care Clinical Dietetic Technician Name Role Phone Unavailable Primary Care Provider Unavailabl e Encounter Details Date Type Department Care Team (Late st Contact Info) Description 05/01/2008 14:[address] [facility] - Maple conversion [address] [place] [address] Yoandy Nunez PA [address] [place] [address] Social History Tobacco Use Types Packs/Day Years [...]
--- OUTSIDE RECORDS SUMMARY | 2008-05-30 08:04 | XMS_ITS | Encounter Summary ---
Author Organization [facility] Address [address] [place] [address] Care Team Providers Care Energy Conservation Specialist Name Role Phone Unavailable Primary Care Provider Unavailabl e Encounter Details Date Type Department Care Team (Late st Contact Info) Description 05/30/2008 9:04 EDT Hospital Encounter [facility] - [place] conversion [address] [place] [address] Yoandy Nunez PA [address] [place] [address] Social History Tobacco Use Types Packs/Day Years [...]
--- OUTSIDE RECORDS SUMMARY | 2008-06-26 14:11 | XMS_ITS | Encounter Summary ---
Author Organization [facility] Address [address] [place] [address] Care Team Providers Care Dispatcher Tugboat Name Role Phone Unavailable Primary Care Provider Unavailabl e Encounter Details Date Type Department Care Team (Late st Contact Info) Description 06/26/2008 15:11 EDT Hospital Encounter [facility] - [place] conversion [address] [place] [address] Yoandy Nunez PA [address] [place] [address] Social History Tobacco Use Types Packs/Day Years [...]
--- OUTSIDE RECORDS SUMMARY | 2008-10-03 08:40 | XMS_ITS | Encounter Summary ---
Author Organization [facility] Address [address] [place] [address] Care Team Providers Care Unloading Checker Name Role Phone Unavailable Primary Care Provider Unavailabl e Encounter Details Date Type Department Care Team (Late st Contact Info) Description 10/03/2008 8:40 EST Hospital Encounter [facility] - [place] conversion [address] [place] [address] Yoandy Nunez PA [address] [place] [address] Social History Tobacco Use Types Packs/Day Years [...]
--- NOTE | ~2025-08-05 | XR_ITS ---
EXAMINATION: XR WRIST, LEFT CLINICAL INFORMATION: M25.532 - Pain in left wrist COMPARISON: 07/15/2025 TECHNIQUE: PA, lateral, and oblique views of the left wrist. FINDINGS: Since prior x-ray, K wire traversing the distal radioulnar joint from an ulnar approach has been removed. Volar plate remains intact. Faint periosteal new bone formation and cortical new bone formation is visible across the distal radial fracture. There is disuse osteopenia. XR/XR wrist LT min 3V IMPRESSION: Healing distal radial fracture post-ORIF. Electronically signed by: Toby Campos MD 08/05/2025 02:55 PM EST
--- OUTSIDE RECORDS SUMMARY | 2025-08-07 17:00 | XMS_ITS | Encounter Summary ---
Author Organization [facility] Address [address] [facility] [address] [place] [address] Phone Care Team Providers Care Rim Turning Machine Operator Name Role Phone Prince Quinones MD Primary Care Provider Self-Referred, Patient Unavailable Unavailab Virgilio Knowles MD Unavailable Encounter Details Date Type Department Care Team (Late st Contact Info) Description 07/31/2024 Procedure Pass [facility] [address] [facility] [address] [place] [address] Social History Tobacco Use Types Packs/Day Years [...] high school, GED, job training, learning the Tunisian language, technical skills, or developing parenting skills)? [...] on filedocumented in this encounter Care Teams Rim Turning Machine Operator Relationship Specialty Start Date End Date Prince Quinones MD [facility] [place] [address] PCP - General Internal Medicine 04/09/24 Self-Referred, Patient 04/09/24 Virgilio Munguia MD [address] [place] [phone] [email or web address] Medical Oncology 07/31/24 documented as of this encounter Additional Source Comments The information contained in this document represents components of the legal health record. It is not the complete legal health record.[facility]
--- OUTSIDE RECORDS SUMMARY | 2025-08-07 17:00 | XMS_ITS | Data Portability ---
Author Organization [place] [facility],, CRISTINA NELSON MD Address [address] [facility] [address] [place] [address] Care Team Providers Care Cap Sizer Name Role Phone YELENA SIDDIQUI Primary Care Provider Assessment No assessment recorded. Plan of Treatment Reminders Order Date Submit Date Provider Last Modified By Organization Details Last Modified Time Details Appointments None recorded. Lab pap test, thinprep, cervical [address] [facility], Cytopathology Service, [address] [place] [address], [address], 7 16:40:25 fecal occult blood, stool 2016 017 [facility] In-Office Order, Internal Use Only DO Not Attach Compendium DO Not Attach Compendium, Do Not Delete/merge, [id number] 7 14:30:43 pap test, thinprep, cervical [address] [facility], Cytopathology Service, [address] [place], [address], 6 13:32:55 follicle- stimulati ng hormone (FSH), baseline 2015 016 [facility], [address], [address], [place], [address], 6 03:35:47 estradiol , serum 2015 016 [facility], [address], [place], [address], 6 03:35:47 pap test, thinprep, cervical 2013 014 [facility] (Centralized Electronic Ordering - All Locations), Patient Can Go To The Location Of Their Choice, [id number] 4 08:18:58 CBC w/ auto diff 2013 014 [facility] (Centralized Electronic Ordering - All Locations), Patient Can Go To The Location Of Their Choice, [id number] 5 07:54:02 fecal occult blood, stool 2013 014 [email or web address] In-Office Order, Internal Use Only DO Not Attach Compendium DO Not Attach Compendium, Do Not Delete/merge, [id number] 4 15:33:52 Referral None recorded. Procedures None recorded. Surgeries None recorded. Imaging MAMMO, screening , digital, bilateral 2016 017 [facility] Orders, [address], [address], [place], [address], 8 08:50:54 US, pelvis, transabdo domingo + transvagi nal 2016 017 [facility] Orders, [address], [address], [place], [address], 8 07:23:54 US, pelvis 2015 016 DBA_PATCH_ [id number] [facility] (Central Scheduling Radiology), [address] [facility], [place], [address], 6 04:20:30 MAMMO, screening , digital, bilateral 2015 016 [facility] Imaging Orders, [address], [address], [place], [address], 7 08:37:43 MAMMO, screening , digital, bilateral 2013 014 [facility] Orders, [address], [address], [place], [address], 5 11:27:43 Medication Orders None recorded. Patient TargetsNo targets recorded. Patient Instructions Encounter Date Encounter Id Patient Instructions Last Modified By Organization Details Last Modified Time 07/23/2014 [id number] heavy menstrual periods: care instructions Not available 07/24/2014 15:33:52 She is here for an annual exam, as a new patient. 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 Not available 07/24/2014 15:33:52 02/15/2016 [id number] vaginal bleeding after menopause: care instructions Not available 02/15/2016 11:32:41 She is here for annual exam. She has not been here since 06/2014, her first visit. She lost her job recently because she is not bilingual. 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 She has not had a menses from [...] in detail. Not available 02/15/2016 11:32:41 03/24/2016 [id number] She is here to discuss her recent [...] 25 minutes Not available 03/24/2016 14:17:52 09/14/2017 [id number] vaginal bleeding after menopause: care instructions [email or web address] [...] DO Not Attach Compendium, Do Not Delete/merge, [id number] 07/23/2014 11:53:42 02/15/20 16 02/15/2016 pap, LB [id number] ThinP rep Pap, Image d: NEGAT TATIANA [...] ASCUS . lps 07/23 neg Not Available [facility], Cytopathology Service [address] [place], [address], 02/23/2016 13:32:55 09/14/20 17 09/14/2017 pap, LB [id number] ThinP rep Pap, Image d: NEGAT TATIANA [...] LPS neg, wendi everett, z12.4 Not Available [facility], Cytopathology Service [address], [place], [address], 09/15/2017 16:40:24 09/14/20 17 09/14/2017 fecal occul t blood , stool Occult Blood negati ve Not Available In-Office Order Internal Use Only DO Not Attach Compendium DO Not Attach Compendium, Do Not Delete/merge, [id number] 09/14/2017 14:18:48 10/31/19 15 10/31/2014 MAMMO , scree pratik, digit al, bilat eral No observ ation record ed. [address] [facility] Orders [address], [place], [address], 10/31/2014 14:00:24 05/04/20 15 05/04/2015 imagi ng/di agnos tic resul t No observ ation record ed. [address] [facility] Orders [address], [place], [address], 05/05/2015 06:39:13 12/31/19 16 12/31/2015 MAMMO , scree pratik, digit al, bilat eral No observ ation record ed. [facility] Imaging Orders [address], [place], [address], 01/01/2016 10:19:35 01/11/20 16 01/11/2016 ultra sound , breas t No observ ation record ed. [address] [facility] Orders [address], [place], [address], 01/11/2016 12:08:22 08/12/20 16 08/12/2016 ultra sound , breas t No observ ation record ed. [address] (Outpt Imaging) [address], [place], [address], 08/13/2016 16:06:55 04/21/20 17 04/21/2017 MAMMO , scree pratik, digit al, bilat eral No observ ation record ed. [email or web address] [facility] (Outpt Imaging) [address] [place], [address], 04/24/2017 10:58:42 02/03/20 18 02/02/2018 US, pelvi s, trans abdom inal + trans vagin al No observ ation record ed. [email or web address] [facility] (Outpt Imaging) [address] [place], [address], 02/06/2018 08:54:03 04/26/20 18 04/25/2018 MAMMO , scree pratik, digit al, bilat eral No observ ation record ed. [facility] [address] [place], [address], 04/26/2018 10:15:28 Result Notes None recorded. Problems Name Problem SNOMED Code Status Onset Date Resolution Date Notes Provider Name and Address Organization Details Recorded Time Factor V Leiden mutation 350426003 Completed 09/14/2017 Krystle mc [place] - [facility], 7 14:18:11 Menorrhagia 911585887 Active Cristina Nelson MD [address], [place], [address], [place] - [facility], 6 10:29:08 Hypertensiv e disorder 64326464 Active Cristina Nelson MD [address], [place], [address], [place] - [facility], 6 10:29:08 Asthma [id number] Kimmie Nelson MD [address], [place], [address], [place] - [facility], 6 10:29:08 Mammography abnormal 122199980 Kimmie Nelson MD [address], [place], [address], [place] - [facility], 6 10:29:08 Postmenopau halima bleeding 61545203 Active Cristina Nelson MD [address] [facility], [place], [address] [place] - [facility], 6 11:32:41 Problem Notes None recorded. Procedures Surgical History Date Name Laterality Status Provider Name and Address Organization Details Recorded Time 09/25/19 12 Dilation and Curettage completed Krystle Huertas in [facility], 07/23/2014 11:50:48 09/25/18 73 Appendectomy completed Krystle Huertas in [facility], 07/23/2014 11:50:48 Imaging Results None recorded. [...] Available Not Available Not Available [employer] Isa [facility] spacer USE DIRECTED WITH METERED DOSE INHALERS active Not Available Not Available No t Available Multi Vitamin 09/14 completed Not Available Not Available Not Available Vitals Date Recorded Body height Heart rate Body weight Body mass index (BMI) Systolic And Diastolic Provider Name and Address Organization Details Last Updated DateTime 02/15/2016 168.91 cm 80 /min 649517.8 5759 g 48.8 kg/m2 135/77 mm[Hg] Ludivina Huertas in [facility], 02/15/2016 10:12:21 Date Recorded Body height Heart rate Body weight Body mass index (BMI) Systolic And Diastolic Provider Name and Address Organization Details Last Updated DateTime 03/24/2016 168.91 cm 71 /min 629229.8 6 g 48.8 kg/m2 126/85 mm[Hg] Ludivina uHertas in [facility], 03/24/2016 13:53:19 Date Recorded Body height Body mass index (BMI) Heart rate Body weight Systolic And Diastolic Provider Name and Address Organization Details Last Updated DateTime 07/23/2014 168.91 cm 47 kg/m2 72 /min 729883.5 33298 g 137/77 mm[Hg] Krystle Huertas in [facility], 07/23/2014 12:08:50 Date Recorded Body weight Body mass index (BMI) Body height Heart rate Systolic And Diastolic Provider Name and Address Organization Details Last Updated DateTime 09/14/2017 564828.5 4 g 51.2 kg/m2 166.37 cm 75 /min 122/59 mm[Hg] Krystle Meczywor [place] [facility], 09/14/2017 14:11:22 Social History Question Answer Notes LastModified by [employer] Details LastModified Time Tobacco Smoking Status Former Smoker only age 14 to 17 Not Available [employer] 07/28/2020 03:19:37 What Is Your Level Of Caffeine Consumption? Occasional [id number] Information not available 07/28/2020 What Type Of Diet Are You Following? REGULAR [id number] Information not available 07/28/2020 Which Illicit Or Recreational Drugs Have You Used? No [id number] Information not available 07/28/2020 Do You Reside In Or Have You Traveled To An Area Where Ebola Virus Transmission Is Active? No [id number] Information not available 07/28/2020 Education 2 Year [...] Of Your Most Recent Tobacco Screening? 09/14/2017 [id number] Information not available 07/28/2020 Are You Sexually Active? Yes [id number] Information not available 07/28/2020 How Much Tobacco Do You Smoke? No [id number] Information not available 07/28/2020 General Stress Level High Extremely High...siste r Severely Mentally Ill And She Is Only Family Member Helping Her. Information not available 09/14/2017 How Many Years Have You Smoked Tobacco? 3 [id number] Information not available 07/28/2020 Have You Recently (within The Last 12 Weeks, Or During A Current ) Traveled To Or Lived In A Zika-affected Area? No Information not available 03/24/2016 Sex: Unknown Functional Status Question Answer Note LastModified by [employer] Details LastModified Time What is your level of alcohol consumption? Occasional [id number] Information not available 07/28/2020 What is your occupation? 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 Information not available 09/14/2017 What is your exercise level? None [id number] Information not available 07/28/2020 Mental Status None [...] Krystle Mustafa alexandro DANIELLE Rony Huertas in [facility], 07/23/2014 11:50:48 influenza, unspecified formulation 5 completed Ludivina mc DANIELLE Rony Huertas in [facility], 03/24/2016 13:56:34 Influenza, split virus, quadrivalent, preservative 7 completed Krystle Mustafa alexandro DANIELLE Rony Huertas in [facility], 09/14/2017 14:12:45 Past Encounters Encounter ID Performer Location Encounter Start Date Encounter Closed Date Diagnosis/Indication Diagnosis SNOMED-CT Code Diagnosis ICD10 Code Diagnosis IMO Codes Diagnosis Note [id number] MD CRISTINA Hoover MD [address] [facility] [place] [address] 07/23/2014 10:59:42 07/24/2014 16:18:41 Specialized medical examination 43282222 Screening for malignant neoplasm of rectum 198158414 Screening mammography 36837659 Menorrhagia 404097177 [id number] MD CRISTINA Hoover MD [address] [facility] [place] [address] 02/15/2016 09:58:12 02/15/2016 13:47:21 Specialized medical examination 92099630 Z01.419 Screening mammography 24 317244 Z12.31 Postmenopa usal bleeding 47886617 N95.0 [id number] MD CRISTINA Hoover MD [address] [facility] [place] [address] 03/24/2016 13:37:51 03/24/2016 15:04:30 Dysfunctional uterine bleeding 37992464 N93.8 Factor V L eiden mutation 329950626 D68.51 [id number] MD CRISTINA Hoover MD [address] [facility] [place] [address] 09/14/2017 13:57:35 09/14/2017 15:35:21 Specialized medical examination 80454979 Z01.419 Screening for malignant neoplasm of rectum 618622473 Z12.12 Screening mammography 24 954187 Z12.31 Postmenopa usal bleeding 62381542 N95.0 Health Concerns Section Related Observation LastModified by Organization Detai ls LastModified Time None Recorded Concern Status LastModified by Organization Details LastModified Time None Recorded Advance Directives Directive None Recorded Payers Insurance Date Sequence Insurance Name Policy Number Policy Wheat Covered Member ID Wheat Member ID Guarantor Name 09/14/2017 1 [facility] Haroldo [place] [id number] Corine [place]o 09/12/2017 1 AETJACKIE (O) [id number] Corine [place] [id number] Corineramona Macedo 02/15/2016 1 [facility] [id number] [facility] [id number] [facility] Notes Date Note Type Note Provider Name and Address Organization Details Recorded Time 07/23/2014 text/html ROS as noted in the HPI Cristina Nelson MD [address] [facility],[address], [place], [address], [employer] - [facility], 07/24/2014 15:59:58 02/15/2016 text/html ROS as noted in the HPI Cristina Nelson MD [address] [facility],[address], [place], [address], [place] - [facility], 02/15/2016 11:32:58 03/24/2016 text/html She is here to discuss her recent blood work after an episode of delayed onset bleeding, with a question of whether it was the last hurrah or true PMB, after several months of amenorrhea. Cristina Nelson MD [address] [facility],[address], [place], [address], [place] - [facility], 03/24/2016 14:34:52 09/14/2017 text/html She is [...] dub and pelvic pain. Cristina Nelson MD [address] [place] [address],[address], [place], [address], [place] - [facility], 09/14/2017 15:13:38 OBGyn Episode No OBEpisode recorded.
--- OUTSIDE RECORDS SUMMARY | 2025-08-07 17:00 | XMS_ITS | Encounter Summary ---
Author Organization [facility] Address [address] [facility] [address] [place] [address] Phone Care Team Providers Care Vegetables Cook Name Role Phone Prince Quinones MD Primary Care Provider Self-Referred, Patient Unavailable Unavailab Virgilio Knowles MD Unavailable Encounter Details Date Type Department Care Team (Late st Contact Info) Description 07/31/2024 Procedure Pass [facility] [address] [facility] [address] [place] [address] Social History Tobacco Use Types Packs/Day Years [...] high school, GED, job training, learning the Jamaican language, technical skills, or developing parenting skills)? [...] on filedocumented in this encounter Care Teams Vegetables Cook Relationship Specialty Start Date End Date Prince Quinones MD [facility] [place] [address] PCP - General Internal Medicine 04/09/24 Self-Referred, Patient 04/09/24 Virgilio Munguia MD [address] [place] [phone] [email or web address] [email or web address] 07/31/24 documented as of this encounter Additional Source Comments The information contained in this document represents components of the legal health record. It is not the complete legal health record.[facility]
--- OUTSIDE RECORDS SUMMARY | 2025-08-07 17:00 | XMS_ITS | Clinical Summary ---
Author Organization [facility] Address [address] [facility] [address] [place] [address] Phone Care Team Providers Care Recovery Analyst Name Role Phone Prince Quinones MD Primary [...] Type Department Care Team Description 06/09/2025 Telephone [facility], Department of Neurology [address] [place] [address] Feli Martin RN Appointment from Last 3 Months Social History Tobacco [...] high school, GED, job training, learning the Sami language, technical skills, or developing parenting skills)? [...] 2013 INFLUENZA VACCINE (#1) 2025 COVID-19 VACCINE (1 - 2024-2 6 season) 2025 HEPATITIS A [...] topic Medical Devices Not on file Insurance [facility] OUT [facility] PPO BLUE CROSS OUT OF STATE PPO BLUE CROSS OUT OF STATE PPO BLUE CROSS OUT OF STATE PPO BLUE CROSS OUT OF STATE PPO BLUE CROSS OUT OF STATE PPO Care Teams Recovery Analyst Relationship Specialty Start Date End Date Prince Quinones MD [facility] [address] PCP - General Internal Medicine 04/09/24 Self-Referred, Patient 04/09/24 Virgilio Munguia MD [address] [place] [address] [email or web address] Medical [email or web address] 07/31/24 Additional Source Comments The information contained in this document represents components of the legal health record. It is not the complete legal health record.[facility]
--- OUTSIDE RECORDS SUMMARY | 2025-08-07 17:00 | XMS_ITS | Encounter Summary ---
Author Organization [facility] Address [address] [place] [address] Phone Care Team Providers Care Miner Name Role Phone Prince Quinones MD Primary Care Provider Self-Referred, Patient Unavailable Unavailab Virgilio Knowles MD Unavailable Encounter Details Date Type Department Care Team (Late st Contact Info) Description 07/31/2024 Procedure Pass [facility] [address] [place] [address] Social History Tobacco Use Types Packs/Day Years [...] high school, GED, job training, learning the Malian language, technical skills, or developing parenting skills)? [...] on filedocumented in this encounter Care Teams Miner Relationship Specialty Start Date End Date Prince Quinones MD [facility] [place] [address] PCP - General Internal Medicine 04/09/24 Self-Referred, Patient 04/09/24 Virgilio Munguia MD [address] [place] [id number] [email or web address] 07/31/24 documented as of this encounter Additional Source Comments The information contained in this document represents components of the legal health record. It is not the complete legal health record.[facility]
--- OUTSIDE RECORDS SUMMARY | 2025-08-07 17:00 | XMS_ITS | Encounter Summary ---
Author Organization [facility] Address [address] [place] [address] Phone Care Team Providers Care Drag Car Racer Name Role Phone Prince Quinones MD Primary Care Provider Self-Referred, Patient Unavailable Unavailab Virgilio Knowles MD Unavailable Encounter Details Date Type Department Care Team (Late st Contact Info) Description 07/31/2024 Procedure Pass [facility] [address] [facility] [address] [place] [address] Social History Tobacco Use Types Packs/Day Years [...] on filedocumented in this encounter Care Teams Drag Car Racer Relationship Specialty Start Date End Date Prince Quinones MD [facility] [place] [address] PCP - General Internal Medicine 04/09/24 Self-Referred, Patient 04/09/24 Virgilio Munguia MD [address] [place] [phone] [email or web address] 07/31/24 documented as of this encounter Additional Source Comments The information contained in this document represents components of the legal health record. It is not the complete legal health record.[facility]
--- OUTSIDE RECORDS SUMMARY | 2025-08-07 17:00 | XMS_ITS | Clinical Summary ---
Author Organization [facility] Address [address] [place] [address] Care Team Providers Care Optometric Aide Name Role Phone Shawn Rae MD Primary [...] - 1-dose 75+ series) 2038 Care Teams Optometric Aide Relationship Specialty Start Date End Date Shawn Rae MD [address] [facility] [address] [address] [place] [address] PCP - General 01/23/09
== END 2025-08-05 13:39 | disposition home or self-care (01) ==
LOC: HO.HOSX 13:38
PROVIDERS: Visit Provider Orthopaedic Surgery
DX: S52.502A Unspecified fracture of the lower end of left radius, initial encounter for closed fracture (principal); J45.909 Unspecified asthma, uncomplicated; I63.9 Cerebral infarction, unspecified; Z87.891 Personal history of nicotine dependence; X58.XXXA Exposure to other specified factors, initial encounter
CPT/HCPCS: 73110

== ENCOUNTER 2025-08-05 14:36 | Outpatient (AMB) | payer BC, SELFPAY ==
--- NOTE | 2025-08-05 15:01 | MHC.OFFVIS ---
Intake Visit Reasons: PO LT distal radius ORIF 07/03/25 AR Intake Note: Corine is a 60 year old right hand dominant female who presents today for her post operative visit status post left distal radius ORIF, performed by 07/03/[address] Saenz. Dressing removed and xrays updated in office. At her last visit K-wires were removed and patient was placed in a short arm cast. Cast removed and xrays updated in office. Today patient reports stiffness in her fingers. States discomfort in her thumb, incision area and at pin site. Allergies No Known Allergies Allergy (Verified 08/05/25 15:03) HPI HPI PO LT distal radius ORIF 07/03/25 AR: Details: Corine is a 60 year old right hand dominant woman who returns S/P left distal radius ORIF & DRUJ CRPP, DOS: 07/03/25. S/P fall, DOI: 06/25/25, she is seen today with her . She complains of discomfort in her thumb, incision area, and pin sites. She says her first appointment for OT hand therapy on 08/07/25. She had an appointment last week, but said that her hand was hurting and she did not feel that she could do it. She says she has been struggling to move her fingers while in her cast. She finds pain & stiffness in her fingers and hand. 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 She walks with a cane. 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 She is seen today with her . She has a Hx of a trigger finger which was managed with an injection ~6-9 months ago. 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 [facility] Medical History Brain tumor Hyperlipidemia Essential hypertension Morbid obesity Social History Household Members: None Housing: Apartment Are you a primary career resource technician to a significant other at home: No Do you presently have visiting nurse or other home services: No Alcohol intake: current Alcohol intake frequency: does not drink Comment: encourage to ring call light Patient Tobacco Use Status: Former Tobacco user Substance Use Type: Marijuana Advance Directives Date on File: 02/16/24 service: No Physical Exam Const General: no acute distress and alert Orientation/consciousness: patient oriented x3 Neuro General: patient oriented x3 Extrem Other: The patient was alert oriented and in no acute distress The incision is well healed with no erythema drainage or evidence of infection. Initially her fingers were held in extension, and she could initially only bring her fingertips to about 8 cm from her palm. She also initially could not get her fingers flat on the table because she felt it pulling in the middle of her palm. We worked on ROM exercises for 15+ minutes today in clinic today With a significant amount of encouragement, and Before leaving clinic she could actively bring them ~2-3cm from her palm, passively they could be brought to touch her palm. She can also passively get her hand flat on the table. Before leaving she could actively bring her elbow to ~20-30 degrees from full extension Pronation of ~20 degrees Sensation is intact Cap refill is brisk Fracture nontender Radiographs: 3 views of the left wrist were taken and viewed by me today in clinic. They show a distal radius fracture with satisfactory fracture reduction and position of all implants as well as single K-wire, traversing the distal ulna through the distal radius. On the lateral view one of the locking screw heads is visible now, compared to post-op radiographs from her DOS. Psych Appearance: grossly normal Affect: normal affect Attitude: cooperative Office Procedures AMB Fracture Care Details: No fracture, manual therapy for more than 15 minutes [id number] Fracture Billing Code: Fracture Billing Code Assessment & Plan Assessment & Plan (1) Fracture of left distal radius: Code(s): S52.502A - Unspecified fracture of the lower end of left radius, initial encounter for closed fracture Category: Medical (2) Asthma: Code(s): J45.909 - Unspecified asthma, uncomplicated Category: Medical (3) Acute CVA (cerebrovascular accident): Code(s): I63.9 - Cerebral infarction, unspecified Category: Medical Plan Assessment & Plan: 1. Left distal radius fracture, S/P ORIF & DRUJ CRPP DOS: 07/03/25 S/P fall, DOI: 06/25/25 Reduced in ED X2, 06/25/25 K-wire removed: 07/15/25 The patient appears to be doing well post-operatively, though is having significant trouble with stiffness and motivation around getting her fingers moving. I educated her about the post-operative course Again, We worked on ROM exercises for 15+ minutes today in clinic She was fitted for a velcro wrist splint, to be worn when out of the house, and when busy with activities around the house. She should remove it to work on wrist range of motion exercises I discussed activity modifications, she is to lift nothing heavier than a cellphone for the next 2 weeks. They should also avoid any heavy activities for the next 3 weeks She will perform gentle finger ROM exercises at home, 20x daily She is scheduled to begin OT hand therapy on 08/07/25. She will follow up in 4-5 weeks, with X-rays, 3V L wrist, OOP Scribed for Leonela Saenz MD by Shayne Centeno, manager medical device, on 07/15/25 at 1:45 PM, EST. Orders: Orders XR wrist LT min 3V Today M25.532 - Pain in left wrist Scribe Plan - Not visible on output: Scribed for Leonela Saenz MD by Shayne Centeno manager medical device, on [ ] at [ ], EST. Coding Level of Care Code Global (74640) Diagnoses Fracture of left distal radius S52.502A Asthma J45.909 Acute CVA (cerebrovascular accident) I63.9 CPT Codes Fracture Care - Fracture Billing Code: Fracture Billing Code ([id number])
--- OUTSIDE RECORDS SUMMARY | 2025-08-05 16:22 | XMS_ITS | Encounter Summary ---
Author Organization [facility] Address [address] [place] [address] Phone Care Team Providers Care Equipment Cleaner And Tester Name Role Phone Prince Quinones MD Primary Care Provider Self-Referred, Patient Unavailable Unavailab Virgilio Knowles MD Unavailable Encounter Details Date Type Department Care Team (Late st Contact Info) Description 07/31/2024 Procedure Pass [facility] [address] [place] [address] Social History Tobacco Use Types Packs/Day Years [...] high school, GED, job training, learning the [place] language, technical skills, or developing parenting skills)? [...] on filedocumented in this encounter Care Teams Equipment Cleaner And Tester Relationship Specialty Start Date End Date Prince Quinones MD [facility] [place] [address] PCP - General Internal Medicine 04/09/24 Self-Referred, Patient 04/09/24 Virgilio Munguia MD [address] [place] [id number] [email or web address] 07/31/24 documented as of this encounter Additional Source Comments The information contained in this document represents components of the legal health record. It is not the complete legal health record.[facility]
--- OUTSIDE RECORDS SUMMARY | 2025-08-05 16:22 | XMS_ITS | Encounter Summary ---
Author Organization [facility] Address [address] [place] [address] Phone Care Team Providers Care Facility Practice Specialist Name Role Phone Prince Quinones MD Primary Care Provider Self-Referred, Patient Unavailable Unavailab Virgilio Knowles MD Unavailable Encounter Details Date Type Department Care Team (Late st Contact Info) Description 07/31/2024 Procedure Pass [employer] [address] [place] [address] Social History Tobacco Use Types Packs/Day Years [...] high school, GED, job training, learning the [place]rugu[place] language, technical skills, or developing parenting skills)? [...] on filedocumented in this encounter Care Teams Facility Practice Specialist Relationship Specialty Start Date End Date Prince Quinones MD [facility] [place] [address] PCP - General Internal Medicine 04/09/24 Self-Referred, Patient 04/09/24 Virgilio Munguia MD [address] [place] [phone] [email or web address] Medical Oncology 07/31/24 documented as of this encounter Additional Source Comments The information contained in this document represents components of the legal health record. It is not the complete legal health record.[facility]
--- OUTSIDE RECORDS SUMMARY | 2025-08-05 16:22 | XMS_ITS | Data Portability ---
Author Organization [place] [facility],, CRISTINA NELSON MD Address [address] [facility] [facility] [address] [place] [address] Care Team Providers Care Ski Edge Painter Name Role Phone YELENA SIDDIQUI Primary Care Provider [phone] Assessment No assessment recorded. Plan of Treatment Reminders Order Date Submit Date Provider Last Modified By Organization Details Last Modified Time Details Appointments None recorded. Lab pap test, thinprep, cervical 2016 017 [facility], Cytopathology Service, [address] [place] [address], [address], 7 16:40:25 fecal occult blood, stool 2016 017 [place] In-Office Order, Internal Use Only DO Not Attach Compendium DO Not Attach Compendium, Do Not Delete/merge, [id number] 7 14:30:43 pap test, thinprep, cervical 2015 016 [facility], Cytopathology Service, [address] [place], [address], 6 13:32:55 follicle- stimulati ng hormone (FSH), baseline 2015 016 [facility], [address], [address], [place], [address], 6 03:35:47 estradiol , serum 2015 016 [facility], [address], [place], [address], 6 03:35:47 pap test, thinprep, cervical 2013 014 [facility] (Centralized Electronic Ordering - All Locations), Patient Can Go To The Location Of Their Choice, [id number] 4 08:18:58 CBC w/ auto diff 2013 014 [facility] (Centralized Electronic Ordering - All Locations), Patient Can Go To The Location Of Their Choice, [address] 5 07:54:02 fecal occult blood, stool 2013 014 [email or web address] [facility] In-Office Order, Internal Use Only DO Not Attach Compendium DO Not Attach Compendium, Do Not Delete/merge, [id number] 4 15:33:52 Referral None recorded. Procedures None recorded. Surgeries None recorded. Imaging MAMMO, screening , digital, bilateral 2016 017 [facility], [address], [address], [place], [address], 8 08:50:54 US, pelvis, transabdo domingo + transvagi nal 2016 017 [facility] Orders, [address], [address], [place], [address], 8 07:23:54 US, pelvis 2015 016 DBA_PATCH_ [id number] [facility] (Central Scheduling Radiology), [address], [place], [address], 6 04:20:30 MAMMO, screening , digital, bilateral 2015 016 [facility] Orders, [address], [address], [place], [address], 7 08:37:43 MAMMO, screening , digital, bilateral 2013 014 [facility] Orders, [address], [address], [place], [address], 5 11:27:43 Medication Orders None recorded. Patient TargetsNo targets recorded. Patient Instructions Encounter Date Encounter Id Patient Instructions Last Modified By Organization Details Last Modified Time 07/23/2014 [id number] heavy menstrual periods: care instructions Not available 07/24/2014 15:33:52 She is here for an annual exam, as a new patient. She has not had any datapower consultant care since her D and C in [...] in detail. Not available 07/24/2014 15:33:52 02/15/2016 [id number] vaginal bleeding after menopause: care instructions Not available 02/15/2016 11:32:41 She is here for annual exam. She has not been here since 06/2014, her first visit. She lost her job recently because she is not bilingual. She had been working in the office of a [employer]. She has not had a menses from [...] in detail. Not available 02/15/2016 11:32:41 03/24/2016 [id number] She is here to discuss her recent [...] 25 minutes Not available 03/24/2016 14:17:52 09/14/2017 [id number] vaginal bleeding after menopause: care instructions [email or web address] [...] DO Not Attach Compendium, Do Not Delete/merge, [id number] 07/23/2014 11:53:42 02/15/20 16 02/15/2016 pap, LB [id number] ThinP rep Pap, Image d: NEGAT TATIANA [...] ASCUS . lps 07/23 neg Not Available [facility], Cytopathology Service [address] [place], [address], 02/23/2016 13:32:55 09/14/20 17 09/14/2017 pap, LB [id number] ThinP rep Pap, Image d: NEGAT TATIANA [...] LPS neg, wendi everett, z12.4 Not Available [facility], Cytopathology Service [address], [place], [address], 09/15/2017 16:40:24 09/14/20 17 09/14/2017 fecal occul t blood , stool Occult Blood negati ve Not Available In-Office Order Internal Use Only DO Not Attach Compendium DO Not Attach Compendium, Do Not Delete/merge, [id number] 09/14/2017 14:18:48 10/31/19 15 10/31/2014 MAMMO , scree pratik, digit al, bilat eral No observ ation record ed. [address] [facility] Orders [address], [place], [address], 10/31/2014 14:00:24 05/04/20 15 05/04/2015 imagi ng/di agnos tic resul t No observ ation record ed. [address] [facility] Orders [address], [place], [address], 05/05/2015 06:39:13 12/31/19 16 12/31/2015 MAMMO , scree pratik, digit al, bilat eral No observ ation record ed. [facility] Orders [address], [place], [address], 01/01/2016 10:19:35 01/11/20 16 01/11/2016 ultra sound , breas t No observ ation record ed. [address] [facility] Orders [address], [place], [address], 01/11/2016 12:08:22 08/12/20 16 08/12/2016 ultra sound , breas t No observ ation record ed. [address] (Outpt Imaging) [address], [place], [address], 08/13/2016 16:06:55 04/21/20 17 04/21/2017 MAMMO , scree pratik, digit al, bilat eral No observ ation record ed. [email or web address] [facility] (Outpt Imaging) [address] [place], [address], 04/24/2017 10:58:42 02/03/20 18 02/02/2018 US, pelvi s, trans abdom inal + trans vagin al No observ ation record ed. [email or web address] [facility] (Outpt Imaging) [address] [place], [address], 02/06/2018 08:54:03 04/26/20 18 04/25/2018 MAMMO , scree pratik, digit al, bilat eral No observ ation record ed. [facility] [address] [place], [address], 04/26/2018 10:15:28 Result Notes None recorded. Problems Name Problem SNOMED Code Status Onset Date Resolution Date Notes Provider Name and Address Organization Details Recorded Time Factor V Leiden mutation [id number] Completed 09/14/2017 Krystle mc [place] [facility]'s [facility], 7 14:18:11 Menorrhagia 999971600 Active Cristina Nelson MD [address], [place], [address], [place] - [facility], 6 10:29:08 Hypertensiv e disorder 01171873 Active Cristina Nelson MD [address], [place], [address], [place] - [facility], 6 10:29:08 Asthma [id number] Kimmie Nelson MD [address], [place], [address], [place] [facility]'s [facility] Care, 6 10:29:08 Mammography abnormal [id number] Kimmie Nelson MD [address], [place], [address], [place] - [facility], 6 10:29:08 Postmenopau halima bleeding 95936291 Active Cristina Nelson MD [address] [facility], [place], [address] [place] - [facility], 6 11:32:41 Problem Notes None recorded. Procedures Surgical History Date Name Laterality Status Provider Name and Address Organization Details Recorded Time 09/25/19 12 Dilation and Curettage completed Krystle Huertas in [facility], 07/23/2014 11:50:48 09/25/18 73 Appendectomy completed Krystle Huertas in [facility], 07/23/2014 11:50:48 Imaging Results None recorded. Procedure [...] Available Not Available Not Available [employer]amber Isa [facility] spacer USE DIRECTED WITH METERED DOSE INHALERS active Not Available Not Available No t Available Multi Vitamin 09/14 completed Not Available Not Available Not Available Vitals Date Recorded Body height Heart rate Body weight Body mass index (BMI) Systolic And Diastolic Provider Name and Address Organization Details Last Updated DateTime 02/15/2016 168.91 cm 80 /min 651034.8 5759 g 48.8 kg/m2 135/77 mm[Hg] Ludivina Huertas in [facility], 02/15/2016 10:12:21 Date Recorded Body height Heart rate Body weight Body mass index (BMI) Systolic And Diastolic Provider Name and Address Organization Details Last Updated DateTime 03/24/2016 168.91 cm 71 /min 807928.8 6 g 48.8 kg/m2 126/85 mm[Hg] Ludivina Huertas in [facility], 03/24/2016 13:53:19 Date Recorded Body height Body mass index (BMI) Heart rate Body weight Systolic And Diastolic Provider Name and Address Organization Details Last Updated DateTime 07/23/2014 168.91 cm 47 kg/m2 72 /min 678756.5 18254 g 137/77 mm[Hg] Krystle Huertas in [facility], 07/23/2014 12:08:50 Date Recorded Body weight Body mass index (BMI) Body height Heart rate Systolic And Diastolic Provider Name and Address Organization Details Last Updated DateTime 09/14/2017 854120.5 4 g 51.2 kg/m2 166.37 cm 75 /min 122/59 mm[Hg] Krystle Meczywor [place] [facility], 09/14/2017 14:11:22 Social History Question Answer Notes LastModified by [employer] Details LastModified Time Tobacco Smoking Status Former Smoker only age 14 to 17 Not Available [employer] 07/28/2020 03:19:37 What Is Your Level Of Caffeine Consumption? Occasional [id number] Information not available 07/28/2020 What Type Of Diet Are You Following? REGULAR [id number] Information not available 07/28/2020 Which Illicit Or Recreational Drugs Have You Used? No [id number] Information not available 07/28/2020 Do You Reside In Or Have You Traveled To An Area Where Ebola Virus Transmission Is Active? No [id number] Information not available 07/28/2020 Education 2 Year [...] Of Your Most Recent Tobacco Screening? 09/14/2017 [id number] Information not available 07/28/2020 Are You Sexually Active? Yes [id number] Information not available 07/28/2020 How Much Tobacco Do You Smoke? No [id number] Information not available 07/28/2020 General Stress Level High Extremely High...siste r Severely Mentally Ill And She Is Only Family Member Helping Her. Information not available 09/14/2017 How Many Years Have You Smoked Tobacco? 3 [id number] Information not available 07/28/2020 Have You Recently (within The Last 12 Weeks, Or During A Current ) Traveled To Or Lived In A Zika-affected Area? No Information not available 03/24/2016 Sex: Unknown Functional Status Question Answer Note LastModified by [employer] Details LastModified Time What is your level of alcohol consumption? Occasional [id number] Information not available 07/28/2020 What is your occupation? 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 Information not available 09/14/2017 What is your exercise level? None [id number] Information not available 07/28/2020 Mental Status None [...] Krystle Mustafa alexandro DANIELLE Rony Huertas in [facility], 07/23/2014 11:50:48 influenza, unspecified formulation 5 completed Ludivina mc [place] Rony Huertas in [facility], 03/24/2016 13:56:34 Influenza, split virus, quadrivalent, preservative 7 completed Krystle Mustafa alexandro [place] Rony Huertas in [facility], 09/14/2017 14:12:45 Past Encounters Encounter ID Performer Location Encounter Start Date Encounter Closed Date Diagnosis/Indication Diagnosis SNOMED-CT Code Diagnosis ICD10 Code Diagnosis IMO Codes Diagnosis Note [id number] MD CRISTINA Hoover MD [address] [facility] [place] [address] 07/23/2014 10:59:42 07/24/2014 16:18:41 Specialized medical examination 37514958 Screening for malignant neoplasm of rectum 798498566 Screening mammography 87946603 Menorrhagia 217228172 [id number] MD CRISTINA Hoover MD [address] [facility] [place] [address] 02/15/2016 09:58:12 02/15/2016 13:47:21 Specialized medical examination 66356527 Z01.419 Screening mammography 24 547917 Z12.31 Postmenopa usal bleeding 77038101 N95.0 [id number] MD CRISTINA Hoover MD [address] [facility] [place] [address] 03/24/2016 13:37:51 03/24/2016 15:04:30 Dysfunctional uterine bleeding 52754008 N93.8 Factor V L eiden mutation 234284165 D68.51 [id number] MD CRISTINA Hoover MD [address] [facility] [place] [address] 09/14/2017 13:57:35 09/14/2017 15:35:21 Specialized medical examination 49819866 Z01.419 Screening for malignant neoplasm of rectum 773373363 Z12.12 Screening mammography 24 441286 Z12.31 Postmenopa usal bleeding 70779556 N95.0 Health Concerns Section Related Observation LastModified by Organization Detai ls LastModified Time None Recorded Concern Status LastModified by Organization Details LastModified Time None Recorded Advance Directives Directive None Recorded Payers Insurance Date Sequence Insurance Name Policy Number Policy Wheat Covered Member ID Wheat Member ID Guarantor Name 09/14/2017 1 [facility] Haroldo [place] [id number] Corine Macedo 09/12/2017 1 [employer] (O) [id number] Corine Rock [id number] Corineramona Macedo 02/15/[address] [facility] [id number] [facility] [id number] [facility] Notes Date Note Type Note Provider Name and Address Organization Details Recorded Time 07/23/2014 text/html ROS as noted in the HPI Crsitina Nelson MD [address] [facility], [place], [address], [employer] - [facility], 07/24/2014 15:59:58 02/15/2016 text/html ROS as noted in the HPI Cristina Nelson MD [address] [facility],[address], [place], [address], [place] - [facility], 02/15/2016 11:32:58 03/24/2016 text/html She is here to discuss her recent blood work after an episode of delayed onset bleeding, with a question of whether it was the last hurrah or true PMB, after several months of amenorrhea. Cristina Nelson MD [address] [facility],[address], [place], [address], [place] - [facility], 03/24/2016 14:34:52 09/14/2017 text/html She is here [...] dub and pelvic pain. Cristina Nelson MD [address] [place] [address],[address], [place], [address], [place] [facility], 09/14/2017 15:13:38 OBGyn Episode No OBEpisode recorded.
--- OUTSIDE RECORDS SUMMARY | 2025-08-05 16:22 | XMS_ITS | Encounter Summary ---
Author Organization [facility] Address [address] [facility] [address] [place] [address] Phone Care Team Providers Care Liaison Planner Name Role Phone Prince Quinones MD Primary Care Provider Self-Referred, Patient Unavailable Unavailab Virgilio Knowles MD Unavailable Encounter Details Date Type Department Care Team (Late st Contact Info) Description 07/31/2024 Procedure Pass [facility] [address] [facility] [address] [place] [address] Social History Tobacco Use Types Packs/Day Years [...] high school, GED, job training, learning the Palestinian language, technical skills, or developing parenting skills)? [...] on filedocumented in this encounter Care Teams Liaison Planner Relationship Specialty Start Date End Date Prince Quinones MD [facility] [place] [address] PCP - General Internal Medicine 04/09/24 Self-Referred, Patient 04/09/24 Virgilio Munguia MD [address] [place] [phone] [email or web address] Medical Oncology 07/31/24 documented as of this encounter Additional Source Comments The information contained in this document represents components of the legal health record. It is not the complete legal health record.[facility]
--- OUTSIDE RECORDS SUMMARY | 2025-08-05 16:22 | XMS_ITS | Encounter Summary ---
Author Organization [facility] Address [address] [facility] [address] [place] [address] Phone Care Team Providers Care Television Director Name Role Phone Prince Quinones MD Primary Care Provider Self-Referred, Patient Unavailable Unavailab Virgilio Knowles MD Unavailable Encounter Details Date Type Department Care Team (Late st Contact Info) Description 07/31/2024 Procedure Pass [facility] [address] [facility] [address] [place] [address] Social History Tobacco Use Types Packs/Day Years [...] high school, GED, job training, learning the Burundian language, technical skills, or developing parenting skills)? [...] on filedocumented in this encounter Care Teams Television Director Relationship Specialty Start Date End Date Prince Quinones MD [facility] [place] [address] PCP - General Internal Medicine 04/09/24 Self-Referred, Patient 04/09/24 Virgilio Munguia MD [address] [place] [phone] [email or web address] Medical Oncology 07/31/24 documented as of this encounter Additional Source Comments The information contained in this document represents components of the legal health record. It is not the complete legal health record.[facility]
--- OUTSIDE RECORDS SUMMARY | 2025-08-05 16:23 | XMS_ITS | Clinical Summary ---
Author Organization [facility] Address [address] [place] [address] Phone Care Team Providers Care Reel Operator Name Role Phone Prince Quinones MD [...] Type Department Care Team Description 06/09/2025 Telephone [facility], Department of Neurology [address] [place] [address] Feli Martin RN Appointment 05/06/2025 Telephone [facility], Department of Neurology [address] [place] [address] Joe Moon from Last 3 Months Social [...] high school, GED, job training, learning the Lithuanian language, technical skills, or developing parenting skills)? [...] on patient's age to complete this topic IPV VACCINES Aged Out No longer eligi ble [...] CROSS OUT OF STATE PPO Care Teams Reel Operator Relationship Specialty Start Date End Date Prince Quinones MD [address] [place] [address] PCP - General Internal Medicine 04/09/24 Self-Referred, Patient 04/09/24 Virgilio Munguia MD [address] [place] [phone] [email or web address] Medical Oncology 07/31/24 Additional Source Comments The information contained in this document represents components of the legal health record. It is not the complete legal health record.[facility]
== END 2025-08-05 16:08 | disposition home or self-care (01) ==
LOC: HO.HOS 14:36
PROVIDERS: Visit Provider Orthopaedic Surgery
DX: S52.502A Unspecified fracture of the lower end of left radius, initial encounter for closed fracture (principal); J45.909 Unspecified asthma, uncomplicated; I63.9 Cerebral infarction, unspecified
CPT/HCPCS: 99024

== ENCOUNTER → 2025-08-05 14:38 | Outpatient (BNV) | payer BC, SELFPAY | PROVIDERS: Visit Provider Radiology Diagnostic Radiology | DX: M25.532 Pain in left wrist (principal) | CPT/HCPCS: 73110 ==

== ENCOUNTER 2025-09-10 11:04 | Outpatient (REF) | payer BC, SELFPAY ==
--- OUTSIDE RECORDS SUMMARY | 2008-03-06 14:29 | XMS_ITS | Encounter Summary ---
Author Organization [facility] Address [address] [place] [address] Care Team Providers Care Director Employee Safety And Health Name Role Phone Unavailable Primary Care Provider Unavailabl e Encounter Details Date Type Department Care Team (Late st Contact Info) Description 03/06/2008 15:29 EDT Hospital Encounter [facility] - Maple conversion [address] [place] [address] Yoandy Nunez PA [address] [place] [address] Social History Tobacco Use Types Packs/Day Years [...]
--- OUTSIDE RECORDS SUMMARY | 2008-03-27 08:09 | XMS_ITS | Encounter Summary ---
Author Organization [facility] Address [address] [place] [address] Care Team Providers Care Pot Puncher Name Role Phone Unavailable Primary Care Provider Unavailabl e Encounter Details Date Type Department Care Team (Late st Contact Info) Description 03/27/2008 9:09 EDT Hospital Encounter [facility] - [place] conversion [address] [place] [address] Yoandy Nunez PA [address] [place] [address] Social History Tobacco Use Types Packs/Day Years [...]
--- OUTSIDE RECORDS SUMMARY | 2008-04-17 08:08 | XMS_ITS | Encounter Summary ---
Author Organization [facility] Address [address] [place] [address] Care Team Providers Care Mass Spectroscopist Name Role Phone Unavailable Primary Care Provider Unavailabl e Encounter Details Date Type Department Care Team (Late st Contact Info) Description 04/17/2008 9:08 EDT Hospital Encounter [facility] - Maple conversion [address] [place] [address] Yoandy Nunez PA [address] [place] [address] Social History Tobacco Use Types Packs/Day Years [...]
--- OUTSIDE RECORDS SUMMARY | 2008-05-01 13:10 | XMS_ITS | Encounter Summary ---
Author Organization [facility] Address [address] [place] [address] Care Team Providers Care Insurance Premium Auditor Name Role Phone Unavailable Primary Care Provider Unavailabl e Encounter Details Date Type Department Care Team (Late st Contact Info) Description 05/01/2008 14:10 EDT Hospital Encounter [facility] - [place] conversion [address] [place] [address] Yoandy Nunez PA [address] [place] [address] Social History Tobacco Use Types Packs/Day Years [...]
--- OUTSIDE RECORDS SUMMARY | 2008-05-30 08:04 | XMS_ITS | Encounter Summary ---
Author Organization [facility] Address [address] [place] [address] Care Team Providers Care Director Database Name Role Phone Unavailable Primary Care Provider Unavailabl e Encounter Details Date Type Department Care Team (Late st Contact Info) Description 05/30/2008 9:04 EDT Hospital Encounter [facility] - [place] conversion [address] [place] [address] Yoandy Nunez PA [address] [place] [address] Social History Tobacco Use Types Packs/Day Years [...]
--- OUTSIDE RECORDS SUMMARY | 2008-06-26 14:11 | XMS_ITS | Encounter Summary ---
Author Organization [facility] Address [address] [place] [address] Care Team Providers Care Lithograph Designer Name Role Phone Unavailable Primary Care Provider Unavailabl e Encounter Details Date Type Department Care Team (Late st Contact Info) Description 06/26/2008 15:11 EDT Hospital Encounter [facility] - Maple conversion [address] [place] [address] Yoandy Nunez PA [address] [place] [address] Social History Tobacco Use Types Packs/Day Years [...]
--- OUTSIDE RECORDS SUMMARY | 2008-10-03 08:40 | XMS_ITS | Encounter Summary ---
Author Organization [facility] Address [address] [place] [address] Care Team Providers Care Physical Education Professor Name Role Phone Unavailable Primary Care Provider Unavailabl e Encounter Details Date Type Department Care Team (Late st Contact Info) Description 10/03/2008 8:40 EST Hospital Encounter [facility] - Maple conversion [address] [place] [address] Yoandy Nunez PA [address] [place] [address] Social History Tobacco Use Types Packs/Day Years [...]
--- NOTE | ~2025-09-10 | XR_ITS ---
EXAMINATION: XR WRIST 3 OR MORE VIEWS LEFT HISTORY: M25.532 - Pain in left wrist COMPARISON: Comparison is made with the prior examination dated 08/05/2025. FINDINGS: Three views of the left wrist are submitted. The bones are osteopenic. The patient is again noted to be status post internal fixation of the previously seen comminuted fracture of the distal radial metaphysis. Callus formation is seen at the fracture site, consistent with healing. The fracture line remains visible. There is mild degenerative change of the 1st carpometacarpal joint. The soft tissues are unremarkable. XR/XR wrist LT min 3V IMPRESSION: Osteopenia. Healing internally fixed fracture of the distal radial metaphysis. Electronically signed by: Percy Long MD 09/10/2025 02:31 PM EST
--- OUTSIDE RECORDS SUMMARY | 2025-09-10 14:37 | XMS_ITS | Clinical Summary ---
Author Organization [facility] Address [address] [place] [address] Care Team Providers Care Light Rail Train Operator Name Role Phone Shawn Rae MD Primary [...] Comments Hepatitis C Screen 1965 COVID-19 Vaccine (2024-26 season) 2025 RSV Immunization ( o r 60+ Years) (1 - 1-dose 75+ series) 2038 Care Teams Light Rail Train Operator Relationship Specialty Start Date End Date Shawn Rae MD [address] [facility] [address] [place] [address] PCP - General 01/23/09
--- OUTSIDE RECORDS SUMMARY | 2025-09-10 14:37 | XMS_ITS | Data Portability ---
Author Organization [place] [facility],, CRISTINA NELSON MD Address [address] [facility] [facility] [place] [address] Care Team Providers Care Temperature Regulator Pyrometer Name Role Phone YELENA SIDDIQUI Primary Care Provider Assessment No assessment recorded. Plan of Treatment Reminders Order Date Submit Date Provider Last Modified By Organization Details Last Modified Time Details Appointments None recorded. Lab pap test, thinprep, cervical 2016 017 [facility], Cytopathology Service, [address] [place] [address], [address], 7 16:40:25 fecal occult blood, stool 2016 017 [place] In-Office Order, Internal Use Only DO Not Attach Compendium DO Not Attach Compendium, Do Not Delete/merge, [id number] 14:30:43 pap test, thinprep, cervical 2015 016 [facility], Cytopathology Service, [address] [place], [address], 6 13:32:55 follicle- stimulati ng hormone (FSH), baseline 2015 016 [facility], [address], [place] [address], [place], [address], 6 03:35:47 estradiol , serum 2015 016 [facility], [address], [place], [address], 6 03:35:47 pap test, thinprep, cervical 2013 014 [facility] (Centralized Electronic Ordering - All Locations), Patient Can Go To The Location Of Their Choice, [id number] 08:18:58 CBC w/ auto diff 2013 014 [facility] (Centralized Electronic Ordering - All Locations), Patient Can Go To The Location Of Their Choice, [id number] 5 07:54:02 fecal occult blood, stool 2013 014 [place] [facility] In-Office Order, Internal Use Only DO Not Attach Compendium DO Not Attach Compendium, Do Not Delete/merge, [id number] 15:33:52 Referral None recorded. Procedures None recorded. Surgeries None recorded. Imaging MAMMO, screening , digital, bilateral 2016 017 [facility] Orders, [address], [place], [address], 8 08:50:54 US, pelvis, transabdo domingo + transvagi nal 2016 017 [facility] Imaging Orders, [address], [place], [address], 8 07:23:54 US, pelvis 2015 016 [id number] [facility] (Central Scheduling Radiology), [address] [facility], [place], [address], 6 04:20:30 MAMMO, screening , digital, bilateral 2015 016 [facility] Imaging Orders, [address], [place], [address], 7 08:37:43 MAMMO, screening , digital, bilateral 2013 014 [facility] Imaging Orders, [address], [address], [place], [address], 5 11:27:43 Medication Orders None recorded. Patient TargetsNo targets recorded. Patient Instructions Encounter Date Encounter Id Patient Instructions Last Modified By Organization Details Last Modified Time 07/23/2014 [id number] heavy menstrual periods: care instructions Not available 07/24/2014 15:33:52 She is here for an annual exam, as a new patient. She has not had any communications manager care since her D and C in [...] in detail. Not available 07/24/2014 15:33:52 02/15/2016 [id number] vaginal bleeding after menopause: care instructions Not available 02/15/2016 11:32:41 She is here for annual exam. She has not been here since 06/2014, her first visit. She lost her job recently because she is not bilingual. 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 She has not had a menses from [...] in detail. Not available 02/15/2016 11:32:41 03/24/2016 [id number] She is here to discuss her recent [...] 25 minutes Not available 03/24/2016 14:17:52 09/14/2017 [id number] vaginal bleeding after menopause: care instructions [email or web address] [...] DO Not Attach Compendium, Do Not Delete/merge, [id number] 07/23/2014 11:53:42 02/15/20 16 02/15/2016 pap, LB [id number] ThinP rep Pap, Image d: NEGAT TATIANA [...] ASCUS . lps 07/23 neg Not Available [facility], Cytopathology Service [address] [place], [address], 02/23/2016 13:32:55 09/14/20 17 09/14/2017 pap, LB [id number] ThinP rep Pap, Image d: NEGAT TATIANA [...] LPS neg, wendi everett, z12.4 Not Available [facility], Cytopathology Service [address], [place], [address], 09/15/2017 16:40:24 09/14/20 17 09/14/2017 fecal occul t blood , stool Occult Blood negati ve Not Available In-Office Order Internal Use Only DO Not Attach Compendium DO Not Attach Compendium, Do Not Delete/merge, [id number] 09/14/2017 14:18:48 10/31/19 15 10/31/2014 MAMMO , scree praitk, digit al, bilat eral No observ ation record ed. [address] [facility] Imaging Orders [address], [place], [address], 10/31/2014 14:00:24 05/04/20 15 05/04/2015 imagi ng/di agnos tic resul t No observ ation record ed. [address] [facility] Imaging Orders [address], [place], [address], 05/05/2015 06:39:13 12/31/19 16 12/31/2015 MAMMO , scree pratik, digit al, bilat eral No observ ation record ed. [facility] Imaging Orders [address], [place], [address], 01/01/2016 10:19:35 01/11/20 16 01/11/2016 ultra sound , breas t No observ ation record ed. [address] [facility] Imaging Orders [address], [place], [address], 01/11/2016 12:08:22 08/12/20 16 08/12/2016 ultra sound , breas t No observ ation record ed. [address] (Outpt Imaging) [address], [place], [address], 08/13/2016 16:06:55 04/21/20 17 04/21/2017 MAMMO , scree pratik, digit al, bilat eral No observ ation record ed. tmeczywor [facility] (Outpt Imaging) [address] [place], [address], 04/24/2017 10:58:42 02/03/20 18 02/02/2018 US, pelvi s, trans abdom inal + trans vagin al No observ ation record ed. [email or web address] [facility] (Outpt Imaging) [address] [place], [address], 02/06/2018 08:54:03 04/26/20 18 04/25/2018 MAMMO , scree pratik, digit al, bilat eral No observ ation record ed. [facility] [address] [place], [address], 04/26/2018 10:15:28 Result Notes None recorded. Problems Name Problem SNOMED Code Status Onset Date Resolution Date Notes Provider Name and Address Organization Details Recorded Time Factor V Leiden mutation [id number] Completed 09/14/2017 Krystle mc [place] [facility], 7 14:18:11 Menorrhagia 372668831 Active Cristina Nelson MD [address], [place], [address], [place] - [facility], 6 10:29:08 Hypertensiv e disorder 52284129 Active Cristina Nelson MD [address], [place], [address], [place] - [facility], 6 10:29:08 Asthma [id number] Kimmie Nelson MD [address], [place], [address], [place] - [facility], 6 10:29:08 Mammography abnormal [id number] Kmimie Nelson MD [address], [place], [address], [place] - [facility], 6 10:29:08 Postmenopau halima bleeding 05579992 Active Cristina Nelson MD [address] [facility], [place], [address] , [place] - [facility], 6 11:32:41 Problem Notes None recorded. Procedures Surgical History Date Name Laterality Status Provider Name and Address Organization Details Recorded Time 09/25/19 12 Dilation and Curettage completed Krystle Huertas in [facility], 07/23/2014 11:50:48 09/25/18 73 Appendectomy completed Krystle Huertas in [facility], 07/23/2014 11:50:48 Imaging Results None recorded. Procedure [...] Available Not Available Not Available [facility]i[employer] [facility] spacer USE DIRECTED WITH METERED DOSE INHALERS active Not Available Not Available No t Available Multi Vitamin 09/14 completed Not Available Not Available Not Available Vitals Date Recorded Body height Heart rate Body weight Body mass index (BMI) Systolic And Diastolic Provider Name and Address Organization Details Last Updated DateTime 02/15/2016 168.91 cm 80 /min 088906.8 5759 g 48.8 kg/m2 135/77 mm[Hg] Ludivina Huertas in [facility], 02/15/2016 10:12:21 Date Recorded Body height Heart rate Body weight Body mass index (BMI) Systolic And Diastolic Provider Name and Address Organization Details Last Updated DateTime 03/24/2016 168.91 cm 71 /min 245225.8 6 g 48.8 kg/m2 126/85 mm[Hg] Ludivina Huertas in [facility], 03/24/2016 13:53:19 Date Recorded Body height Body mass index (BMI) Heart rate Body weight Systolic And Diastolic Provider Name and Address Organization Details Last Updated DateTime 07/23/2014 168.91 cm 47 kg/m2 72 /min 518259.5 78334 g 137/77 mm[Hg] Krystle Huertas in [facility], 07/23/2014 12:08:50 Date Recorded Body weight Body mass index (BMI) Body height Heart rate Systolic And Diastolic Provider Name and Address Organization Details Last Updated DateTime 09/14/2017 925844.5 4 g 51.2 kg/m2 166.37 cm 75 /min 122/59 mm[Hg] Krystle Meczywor [place] - [facility], 09/14/2017 14:11:22 Social History Question Answer Notes LastModified by [employer] Details LastModified Time Tobacco Smoking Status Former Smoker only age 16 to 19 Not Available [employer] 07/28/2020 03:19:37 What Is Your Level Of Caffeine Consumption? Occasional [id number] Information not available 07/28/2020 What Type Of Diet Are You Following? REGULAR [id number] Information not available 07/28/2020 Which Illicit Or Recreational Drugs Have You Used? No [id number] Information not available 07/28/2020 Do You Reside In Or Have You Traveled To An Area Where Ebola Virus Transmission Is Active? No [id number] Information not available 07/28/2020 Education 2 Year [...] Of Your Most Recent Tobacco Screening? 09/14/2017 [id number] Information not available 07/28/2020 Are You Sexually Active? Yes [id number] Information not available 07/28/2020 How Much Tobacco Do You Smoke? No [id number] Information not available 07/28/2020 General Stress Level High Extremely High...siste r Severely Mentally Ill And She Is Only Family Member Helping Her. Information not available 09/14/2017 How Many Years Have You Smoked Tobacco? 3 [id number] Information not available 07/28/2020 Have You Recently (within The Last 12 Weeks, Or During A Current ) Traveled To Or Lived In A Zika-affected Area? No Information not available 03/24/2016 Sex: Unknown Functional Status Question Answer Note LastModified by [employer] Details LastModified Time What is your level of alcohol consumption? Occasional [id number] Information not available 07/28/2020 What is your occupation? 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 Information not available 09/14/2017 What is your exercise level? None [id number] Information not available 07/28/2020 Mental Status None [...] for MyRisk panel N Autoimmune Condition N Lung Disease N Depression Y Defects or Inherited Disease N History of Ovarian Cancer N BRCA testing in past N Anxiety Disorder N Arthritis Y Infertility N History of Cancer N Endometriosis N Thyroid Problems N Kidney or Bladder Problems N GI Problems Y Anemia Y History of Breast Cancer N RUTH exposure N Psychiatric Illness N Diabetes N Headaches or Migraines Y Asthma Y Hepatitis N Heart Disease N Hypertension Y [...] Krystle Mustafa alexandro DANIELLE Rony Huertas in [facility], 07/23/2014 11:50:48 influenza, unspecified formulation 5 completed Ludivina mc DANIELLE Rony Huertas in [facility], 03/24/2016 13:56:34 Influenza, split virus, quadrivalent, preservative 7 completed Krystle Mustafa alexandro [place]ANIELLE Rony Huertas in [facility], 09/14/2017 14:12:45 Past Encounters Encounter ID Performer Location Encounter Start Date Encounter Closed Date Diagnosis/Indication Diagnosis SNOMED-CT Code Diagnosis ICD10 Code Diagnosis IMO Codes Diagnosis Note [id number] MD CRISTINA Hoover MD [address] [facility] [place] [address] 07/23/2014 10:59:42 07/24/2014 16:18:41 Specialized medical examination 04033503 Screening for malignant neoplasm of rectum 777603698 Screening mammography 76531270 Menorrhagia 728546240 [id number] MD CRISTINA Hoover MD [address] [facility] [place] [address] 02/15/2016 09:58:12 02/15/2016 13:47:21 Specialized medical examination 69533572 Z01.419 Screening mammography 24 620154 Z12.31 Postmenopa usal bleeding 86081122 N95.0 [id number] MD CRISTINA Hoover MD [address] [facility] [place] [address] 03/24/2016 13:37:51 03/24/2016 15:04:30 Dysfunctional uterine bleeding 93795386 N93.8 Factor V L eiden mutation 323486234 D68.51 [id number] MD CRISTINA Hoover MD [address] [facility] [place] [address] 09/14/2017 13:57:35 09/14/2017 15:35:21 Specialized medical examination 02869421 Z01.419 Screening for malignant neoplasm of rectum 565279283 Z12.12 Screening mammography 24 903752 Z12.31 Postmenopa usal bleeding 21574730 N95.0 Health Concerns Section Related Observation LastModified by Organization Detai ls LastModified Time None Recorded Concern Status LastModified by Organization Details LastModified Time None Recorded Advance Directives Directive None Recorded Payers Insurance Date Sequence Insurance Name Policy Number Policy Wheat Covered Member ID Wheat Member ID Guarantor Name 09/14/2017 1 [facility] Haroldo [place] [id number] Corine Macedo 09/12/2017 1 [employer]ET[employer]ACK[employer] (O) [id number] Corine [place] [id number] Corineramona Macedo 02/15/2016 1 [facility] [id number] [facility] [id number] [facility] Notes Date Note Type Note Provider Name and Address Organization Details Recorded Time 07/23/2014 text/html ROS as noted in the HPI Cristina Nelson MD [address] [facility], [place], [address], [employer] - [facility], 07/24/2014 15:59:58 02/15/2016 text/html ROS as noted in the HPI Cristina Nelson MD [address] [facility],[address], [place], [address], [place] - [facility], 02/15/2016 11:32:58 03/24/2016 text/html She is here to discuss her recent blood work after an episode of delayed onset bleeding, with a question of whether it was the last hurrah or true PMB, after several months of amenorrhea. Cristina Nelson MD [address] [facility],[address], [place], [address], [place] - [facility], 03/24/2016 14:34:52 09/14/2017 text/html She is here [...] dub and pelvic pain. Cristina Nelson MD [address] [place] [address],[address], [place], [address], [place] - [facility], 09/14/2017 15:13:38 OBGyn Episode No OBEpisode recorded.
== END 2025-09-10 11:05 | disposition home or self-care (01) ==
LOC: HO.HOSX 11:04
DX: Z47.89 Encounter for other orthopedic aftercare (principal); S52.502D Unspecified fracture of the lower end of left radius, subsequent encounter for closed fracture with routine healing; J45.909 Unspecified asthma, uncomplicated; I63.9 Cerebral infarction, unspecified; Z87.891 Personal history of nicotine dependence; W19.XXXD Unspecified fall, subsequent encounter
CPT/HCPCS: 73110

== ENCOUNTER 2025-09-10 13:41 | Outpatient (AMB) | payer BC, SELFPAY ==
--- NOTE | 2025-09-10 14:00 | MHC.OFFVIS ---
Intake Visit Reasons: PO LT distal radius ORIF 07/03/25 AR-w/xrays Intake Note: fara is a 60 year old right hand dominant female who presents today for her post operative visit status post left distal radius ORIF, performed by 07/03/[address] Saenz[address] At [facility] last visit with Dr Saenz patient was given a wrist brace to use with activities and to work on ROM. Today patient states she is working with O.T to improve ROM. States she is only able to attend O.T 1x a week and is doing home exerices as well. Allergies No Known Allergies Allergy (Verified 09/10/25 14:03) HPI HPI PO LT distal radius ORIF 07/03/25 AR-w/xrays: Details: Corine is a 60 year old right hand dominant woman who returns S/P left distal radius ORIF & DRUJ CRPP, DOS: 07/03/25. S/P fall, DOI: 06/25/25, she is seen today with her . She complains of new pain in her thumb, from prolonged use of her tablet last week. She has been attending OT hand therapy 1x weekly and doing ROM exercises at home. 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 She walks with a cane. 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 She is seen today with her . She has a Hx of a trigger finger which was managed with an injection ~6-9 months ago. 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 [facility] Medical History Brain tumor Hyperlipidemia Essential hypertension Morbid obesity Social History Household Members: None Housing: Apartment Are you a primary personal care service provider to a significant other at home: No Do you presently have visiting nurse or other home services: No Alcohol intake: current Alcohol intake frequency: does not drink Comment: encourage to ring call light Patient Tobacco Use Status: Former Tobacco user Substance Use Type: Marijuana Advance Directives Date on File: 02/16/24 service: No Review of Systems Const All systems reviewed & are unremarkable except as noted in HPI and below Physical Exam Const General: no acute distress and alert Orientation/consciousness: patient oriented x3 Neuro General: patient oriented x3 Extrem Other: Evaluation of Left Upper Extremity: The patient is alert, oriented, and in no acute distress Neuro: Median, Ulnar, Radial nerves motor and sensory intact and sensation is normal to the tips of all digits Vascular: Cap refill brisk ROM: We worked on ROM exercises today in clinic She still has significant stiffness in the MCP joints. She could bring her MCP joints to ~60 degrees. These are passively reducible to almost 90 degrees Good ROM of the PIP & DIP joints Wrist range of motion: ~35 degrees extension ~45 degrees flexion Radiographs: 3 views of the left wrist were taken and viewed by me today in clinic. They show a distal radius fracture with satisfactory fracture reduction and position of all implants, with some evidence of interval bony healing. On the lateral view one of the locking screw heads is visible now, compared to post-op radiographs from her DOS. This is unchanged from her last radiographs Psych Appearance: grossly normal Affect: normal affect Attitude: cooperative Assessment & Plan Assessment & Plan (1) Fracture of left distal radius: Code(s): S52.502A - Unspecified fracture of the lower end of left radius, initial encounter for closed fracture Category: Medical (2) Asthma: Code(s): J45.909 - Unspecified asthma, uncomplicated Category: Medical (3) Acute CVA (cerebrovascular accident): Code(s): I63.9 - Cerebral infarction, unspecified Category: Medical Plan Assessment & Plan: 1. Left distal radius fracture, S/P ORIF & DRUJ CRPP DOS: 07/03/25 S/P fall, DOI: 06/25/25 Reduced in ED X2, 06/25/25 K-wire removed: 07/15/25 2. Left hand and wrist stiffness This is her primary problem right now, and what we focused on in his visit The patient appears to be doing well post-operatively, though is still having trouble with stiffness in her MCP joints I educated her about the post-operative course She will discontinue her splint at this time I discussed activity modifications, she will perform gentle finger ROM exercises at home, 20x daily She has been attending OT hand therapy 1x weekly, and will continue to attend She will follow up in 5-6 weeks for a ROM check. She may cancel this if she is doing well. Scribed for Leonela Saenz MD by Shayne Centeno, medical/surgery registered nurse, on 09/10/25 at 2:05 PM, EST. Orders: Orders XR wrist LT min 3V Today M25.532 - Pain in left wrist Scribe Plan - Not visible on output: Scribed for Leonela Saenz MD by Shayne Centeno medical/surgery registered nurse, on [ ] at [ ], EST. Coding Level of Care Code Est Pt Level 3 (04435) Diagnoses Fracture of left distal radius S52.502A Asthma J45.909 Acute CVA (cerebrovascular accident) I63.9
--- OUTSIDE RECORDS SUMMARY | 2025-09-10 18:12 | XMS_ITS | Encounter Summary ---
Author Organization [facility] Address [address] [facility] [address] [place] [address] Phone Care Team Providers Care Replenishment Analyst Name Role Phone Prince Quinones MD Primary Care Provider Self-Referred, Patient Unavailable Unavailab Virgilio Knowles MD Unavailable Encounter Details Date Type Department Care Team (Late st Contact Info) Description 07/31/2024 Procedure Pass [facility]' Acting Manager Center [address] [place] [address] Social History Tobacco Use Types Packs/Day Years [...] high school, GED, job training, learning the Beninese language, technical skills, or developing parenting skills)? [...] on filedocumented in this encounter Care Teams Replenishment Analyst Relationship Specialty Start Date End Date Prince Quinones MD [facility] [place] [address] PCP - General Internal Medicine 04/09/24 Self-Referred, Patient 04/09/24 Virgilio Munguia MD [address] [place] [phone] [email or web address] [email or web address] 07/31/24 documented as of this encounter Additional Source Comments The information contained in this document represents components of the legal health record. It is not the complete legal health record.[facility]
--- OUTSIDE RECORDS SUMMARY | 2025-09-10 18:12 | XMS_ITS | Encounter Summary ---
Author Organization [facility] Address [address] [facility] [address] [place] [address] Phone Care Team Providers Care Vegetable Ii Farmworker Name Role Phone Prince Quinones MD Primary Care Provider Self-Referred, Patient Unavailable Unavailab Virgilio Knowles MD Unavailable Encounter Details Date Type Department Care Team (Late st Contact Info) Description 07/31/2024 Procedure Pass [facility] Controls Engineer Center [address] [facility] [address] [place] [address] Social History Tobacco Use Types Packs/Day Years [...] high school, GED, job training, learning the Togolese language, technical skills, or developing parenting skills)? [...] on filedocumented in this encounter Care Teams Vegetable Ii Farmworker Relationship Specialty Start Date End Date Prince Quinones MD [facility] [place] [address] PCP - General Internal Medicine 04/09/24 Self-Referred, Patient 04/09/24 iVrgilio Munguia MD [address] [place] [phone] [email or web address] Medical Oncology 07/31/24 documented as of this encounter Additional Source Comments The information contained in this document represents components of the legal health record. It is not the complete legal health record.[facility]
--- OUTSIDE RECORDS SUMMARY | 2025-09-10 18:13 | XMS_ITS | Encounter Summary ---
Author Organization [facility] Address [address] [facility] [address] [place] [address] Phone Care Team Providers Care Pulmonologist Name Role Phone Prince Quinones MD Primary Care Provider Self-Referred, Patient Unavailable Unavailab Virgilio Knowles MD Unavailable Encounter Details Date Type Department Care Team (Late st Contact Info) Description 07/31/2024 Procedure Pass [facility]' Landscape Laborer Center [address] [facility] [address] [place] [address] Social History Tobacco Use Types Packs/Day Years [...] high school, GED, job training, learning the Palauan language, technical skills, or developing parenting skills)? [...] on filedocumented in this encounter Care Teams Pulmonologist Relationship Specialty Start Date End Date Prince Quinones MD [facility] [place] [address] PCP - General Internal Medicine 04/09/24 Self-Referred, Patient 04/09/24 Virgilio Munguia MD [address] [place] [phone] [email or web address] Medical [email or web address] 07/31/24 documented as of this encounter Additional Source Comments The information contained in this document represents components of the legal health record. It is not the complete legal health record.[facility]
--- OUTSIDE RECORDS SUMMARY | 2025-09-10 18:13 | XMS_ITS | Data Portability ---
Author Organization [place] [facility],, CRISTINA NELSON MD Address [address] [facility] [address] [place] [address] Care Team Providers Care Informatics Application Analyst Name Role Phone YELENA SIDDIQUI Primary Care Provider Assessment No assessment recorded. Plan of Treatment Reminders Order Date Submit Date Provider Last Modified By Organization Details Last Modified Time Details Appointments None recorded. Lab pap test, thinprep, cervical 2016 017 [facility], Cytopathology Service, [address] [place] [address], [address], 7 16:40:25 fecal occult blood, stool 2016 017 [facility] In-Office Order, Internal Use Only DO Not Attach Compendium DO Not Attach Compendium, Do Not Delete/merge, [id number] 7 14:30:43 pap test, thinprep, cervical 2015 016 [facility], Cytopathology Service, [address] [place], [address], 6 13:32:55 follicle- stimulati ng hormone (FSH), baseline 2015 016 [facility], [address], [place], [address], 6 03:35:47 estradiol , serum 2015 016 [facility], [address], [place], [address], 6 03:35:47 pap test, thinprep, cervical 2013 014 [facility] (Centralized Electronic Ordering - All Locations), Patient Can Go To The Location Of Their Choice, [id number] 4 08:18:58 CBC w/ auto diff 2013 014 [facility] (Centralized Electronic Ordering - All Locations), Patient Can Go To The Location Of Their Choice, [id number] 5 07:54:02 fecal occult blood, stool 2013 014 [email or web address] In-Office Order, Internal Use Only DO Not Attach Compendium DO Not Attach Compendium, Do Not Delete/merge, [id number] 4 15:33:52 Referral None recorded. Procedures None recorded. Surgeries None recorded. Imaging MAMMO, screening , digital, bilateral [address] [facility] Orders, [address], [address], [place], [address], 8 08:50:54 US, pelvis, transabdo domingo + transvagi nal 2016 017 [facility] Imaging Orders, [address], [address], [place], [address], 8 07:23:54 US, pelvis 2015 016 DBA_PATCH_ [id number] [facility] (Central Scheduling Radiology), [address] [address], [place], [address], 6 04:20:30 MAMMO, screening , digital, bilateral 2015 016 [facility] Imaging Orders, [address], [address], [place], [address], 7 08:37:43 MAMMO, screening , digital, bilateral [address] [facility] Imaging Orders, [address], [address], [place], [address], 5 11:27:43 Medication Orders None recorded. Patient TargetsNo targets recorded. Patient Instructions Encounter Date Encounter Id Patient Instructions Last Modified By Organization Details Last Modified Time 07/23/2014 [id number] heavy menstrual periods: care instructions Not available 07/24/2014 15:33:52 She is here for an annual exam, as a new patient. 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 Not available 07/24/2014 15:33:52 02/15/2016 [id number] vaginal bleeding after menopause: care instructions Not available 02/15/2016 11:32:41 She is here for annual exam. She has not been here since 06/2014, her first visit. She lost her job recently because she is not bilingual. She had been working in the office of a [employer]. She has not had a menses from [...] in detail. Not available 02/15/2016 11:32:41 03/24/2016 [id number] She is here to discuss her recent [...] 25 minutes Not available 03/24/2016 14:17:52 09/14/2017 [id number] vaginal bleeding after menopause: care instructions [email or web address] [...] DO Not Attach Compendium, Do Not Delete/merge, [id number] 07/23/2014 11:53:42 02/15/20 16 02/15/2016 pap, LB [email or web address] ThinP rep Pap, Image d: NEGAT TATIANA [...] ASCUS . lps 07/23 neg Not Available [facility], Cytopathology Service [address] [place], [address], 02/23/2016 13:32:55 09/14/20 17 09/14/2017 pap, LB [id number] ThinP rep Pap, Image d: NEGAT TATIANA [...] LPS neg, wendi everett, z12.4 Not Available [facility], Cytopathology Service [address], [place], [address], 09/15/2017 16:40:24 09/14/20 17 09/14/2017 fecal occul t blood , stool Occult Blood negati ve Not Available In-Office Order Internal Use Only DO Not Attach Compendium DO Not Attach Compendium, Do Not Delete/merge, [id number] 09/14/2017 14:18:48 10/31/19 15 10/31/2014 MAMMO , scree pratik, digit al, bilat eral No observ ation record ed. [address] [facility] Imaging Orders [address], [place], [address], 10/31/2014 14:00:24 05/04/20 15 05/04/2015 imagi ng/di agnos tic resul t No observ ation record ed. [address] [facility] Imaging Orders [address], [place], [address], 05/05/2015 06:39:13 12/31/19 16 12/31/2015 MAMMO , scree pratik, digit al, bilat eral No observ ation record ed. [facility] Imaging Orders [address], [place], [address], 01/01/2016 10:19:35 01/11/20 16 01/11/2016 ultra sound , breas t No observ ation record ed. [address] [facility] Imaging Orders [address], [place], [address], 01/11/2016 12:08:22 08/12/20 16 08/12/2016 ultra sound , breas t No observ ation record ed. [address] (Outpt Imaging) [address], [place], [address], 08/13/2016 16:06:55 04/21/20 17 04/21/2017 MAMMO , scree pratik, digit al, bilat eral No observ ation record ed. [email or web address] (Outpt Imaging) [address] [place], [address], 04/24/2017 10:58:42 02/03/20 18 02/02/2018 US, pelvi s, trans abdom inal + trans vagin al No observ ation record ed. [email or web address] [facility] (Outpt Imaging) [address] [place], [address], 02/06/2018 08:54:03 04/26/20 18 04/25/2018 MAMMO , scree pratik, digit al, bilat eral No observ ation record ed. [facility] [address] [place], [address], 04/26/2018 10:15:28 Result Notes None recorded. Problems Name Problem SNOMED Code Status Onset Date Resolution Date Notes Provider Name and Address Organization Details Recorded Time Factor V Leiden mutation [id number] Completed 09/14/2017 Krystle mc [place] [facility]'s [facility] Care, 7 14:18:11 Menorrhagia 629580492 Active Cristina Nelson MD [address], [place], [address], [place] - [facility], 6 10:29:08 Hypertensiv e disorder 13296309 Active Cristina Nelson MD [address], [place], [address], [place] - [facility], 6 10:29:08 Asthma [id number] Kimmie Nelson MD [address], [place], [address], [place] - [facility]'s [facility] Care, 6 10:29:08 Mammography abnormal [id number] Kimmie Nelson MD [address], [place], [address], [place] - [facility], 6 10:29:08 Postmenopau halima bleeding 03709119 Active Cristina Nelson MD [address] [facility], [place], [address] [place] - [facility], 6 11:32:41 Problem Notes None recorded. Procedures Surgical History Date Name Laterality Status Provider Name and Address Organization Details Recorded Time 09/25/19 12 Dilation and Curettage completed Krystle Huertas in [facility], 07/23/2014 11:50:48 09/25/18 73 Appendectomy completed Krystle Huertas in [facility], 07/23/2014 11:50:48 Imaging Results None recorded. Procedure [...] Available Not Available Not Available [facility]i[employer] Isa [facility] spacer USE DIRECTED WITH METERED DOSE INHALERS active Not Available Not Available No t Available Multi Vitamin 09/14 completed Not Available Not Available Not Available Vitals Date Recorded Body height Heart rate Body weight Body mass index (BMI) Systolic And Diastolic Provider Name and Address Organization Details Last Updated DateTime 02/15/2016 168.91 cm 80 /min 918561.8 5759 g 48.8 kg/m2 135/77 mm[Hg] Ludivina Huertas in [facility], 02/15/2016 10:12:21 Date Recorded Body height Heart rate Body weight Body mass index (BMI) Systolic And Diastolic Provider Name and Address Organization Details Last Updated DateTime 03/24/2016 168.91 cm 71 /min 995681.8 6 g 48.8 kg/m2 126/85 mm[Hg] Ludivina Huertas in [facility], 03/24/2016 13:53:19 Date Recorded Body height Body mass index (BMI) Heart rate Body weight Systolic And Diastolic Provider Name and Address Organization Details Last Updated DateTime 07/23/2014 168.91 cm 47 kg/m2 72 /min 600941.5 84107 g 137/77 mm[Hg] Krystle Huertas in [facility], 07/23/2014 12:08:50 Date Recorded Body weight Body mass index (BMI) Body height Heart rate Systolic And Diastolic Provider Name and Address Organization Details Last Updated DateTime 09/14/2017 192273.5 4 g 51.2 kg/m2 166.37 cm 75 /min 122/59 mm[Hg] Krystle Meczywor [place] [facility], 09/14/2017 14:11:22 Social History Question Answer Notes LastModified by [employer] Details LastModified Time Tobacco Smoking Status Former Smoker only age 16 to 17 Not Available [facility] 07/28/2020 03:19:37 What Is Your Level Of Caffeine Consumption? Occasional [id number] Information not available 07/28/2020 What Type Of Diet Are You Following? REGULAR [id number] Information not available 07/28/2020 Which Illicit Or Recreational Drugs Have You Used? No [id number] Information not available 07/28/2020 Do You Reside In Or Have You Traveled To An Area Where Ebola Virus Transmission Is Active? No [id number] Information not available 07/28/2020 Education 2 Year [...] Of Your Most Recent Tobacco Screening? 09/14/2017 [id number] Information not available 07/28/2020 Are You Sexually Active? Yes [id number] Information not available 07/28/2020 How Much Tobacco Do You Smoke? No [id number] Information not available 07/28/2020 General Stress Level High Extremely High...siste r Severely Mentally Ill And She Is Only Family Member Helping Her. Information not available 09/14/2017 How Many Years Have You Smoked Tobacco? 3 [id number] Information not available 07/28/2020 Have You Recently (within The Last 12 Weeks, Or During A Current ) Traveled To Or Lived In A Zika-affected Area? No Information not available 03/24/2016 Sex: Unknown Functional Status Question Answer Note LastModified by [employer] Details LastModified Time What is your level of alcohol consumption? Occasional [id number] Information not available 07/28/2020 What is your occupation? 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 Information not available 09/14/2017 What is your exercise level? None [id number] Information not available 07/28/2020 Mental Status None [...] Krystle Mustafa alexandro DANIELLE Rony Huertas in [facility], 07/23/2014 11:50:48 influenza, unspecified formulation 5 completed Ludivina mc [place]ELLE Rony Huertas in [facility], 03/24/2016 13:56:34 Influenza, split virus, quadrivalent, preservative 7 completed Krystle Mustafa alexandro [place]ANIELLE Rony Huertas in [facility], 09/14/2017 14:12:45 Past Encounters Encounter ID Performer Location Encounter Start Date Encounter Closed Date Diagnosis/Indication Diagnosis SNOMED-CT Code Diagnosis ICD10 Code Diagnosis IMO Codes Diagnosis Note [id number] MD CRISTINA Hoover MD [address] [facility] [place] [address] 07/23/2014 10:59:42 07/24/2014 16:18:41 Specialized medical examination 22000960 Screening for malignant neoplasm of rectum 297295902 Screening mammography 84206885 Menorrhagia 642988878 [id number] MD CRISTINA Hoover MD [address] [facility] [place] [address] 02/15/2016 09:58:12 02/15/2016 13:47:21 Specialized medical examination 53357493 Z01.419 Screening mammography 24 412901 Z12.31 Postmenopa usal bleeding 82867184 N95.0 [id number] MD CRISTINA Hoover MD [address] [facility] [place] [address] 03/24/2016 13:37:51 03/24/2016 15:04:30 Dysfunctional uterine bleeding 35459081 N93.8 Factor V L eiden mutation 768479275 D68.51 [id number] MD CRISTINA Hoover MD [address] [facility] [place] [address] 09/14/2017 13:57:35 09/14/2017 15:35:21 Specialized medical examination 53047175 Z01.419 Screening for malignant neoplasm of rectum 032827005 Z12.12 Screening mammography 24 236721 Z12.31 Postmenopa usal bleeding 43329080 N95.0 Health Concerns Section Related Observation LastModified by Organization Detai ls LastModified Time None Recorded Concern Status LastModified by Organization Details LastModified Time None Recorded Advance Directives Directive None Recorded Payers Insurance Date Sequence Insurance Name Policy Number Policy Wheat Covered Member ID Wheat Member ID Guarantor Name 09/14/2017 1 [facility] Haroldo [place] [id number] Corine Macedo 09/12/2017 1 AETJACKIE (O) [id number] Corine [place] [id number] Corineramona Macedo 02/15/2016 1 [facility] [id number] [facility] [id number] [facility] Notes Date Note Type Note Provider Name and Address Organization Details Recorded Time 07/23/2014 text/html ROS as noted in the HPI Cristina Nelson MD [address] [facility],[address], [place], [address], [place] [facility], 07/24/2014 15:59:58 02/15/2016 text/html ROS as noted in the HPI Cristina Nelson MD [address] [facility],[address], [place], [address], [place] - [facility], 02/15/2016 11:32:58 03/24/2016 text/html She is here to discuss her recent blood work after an episode of delayed onset bleeding, with a question of whether it was the last hurrah or true PMB, after several months of amenorrhea. Cristina Nelson MD [address] [facility],[address], [place], [address], [place] - [facility], 03/24/2016 14:34:52 09/14/2017 text/html She is here [...] dub and pelvic pain. Cristina Nelson MD [address] [place] [address],[address], [place], [address], [place] [facility], 09/14/2017 15:13:38 OBGyn Episode No OBEpisode recorded.
--- OUTSIDE RECORDS SUMMARY | 2025-09-10 18:13 | XMS_ITS | Clinical Summary ---
Author Organization [facility] Address [address] [place] [address] [place] [address] Phone Care Team Providers Care Supervisor Maple [employer] Name Role Phone Prince Quinones MD Primary [...] Date Diagnosed Date DVT (deep venous thrombosis) Social History Tobacco Use Types Packs/Day Years [...] high school, GED, job training, learning the Setswana language, technical skills, or developing parenting skills)? [...] HIV ONE-TIME SCREENING (18-6 5 YEARS) 1981 PAP SMEAR 1984 SCREENING FOR DIABETES 1998 MAMMOGRAM 2003 COLOGUARD 2008 COLONOSCOPY 2008 COLORECTAL CANCER SCREENING 2008 FIT TEST 2008 FOBT 2008 SIGMOIDOSCOPY 2008 VIRTUAL COLONOSCOPY 2008 PNEUMOCOCCAL VACCINES (50+ y ears) (1 of 1 - PCV) 2013 RSV VACCINE (1 - Risk 50-74 years 1-dose series) 2013 ZOSTER VACCINES (1 of 2) 2013 INFLUENZA VACCINE (#1) 2025 COVID-19 VACCINE [...] topic Medical Devices Not on file Insurance OUT [facility] PPO BLUE CROSS OUT OF STATE PPO BLUE CROSS OUT OF STATE PPO BLUE CROSS OUT OF STATE PPO BLUE CROSS OUT OF STATE PPO BLUE CROSS OUT OF STATE PPO Care Teams Supervisor Maple Products Relationship Specialty Start Date End Date Prince Quinones MD [address] [address] PCP - General Internal Medicine 04/09/24 Self-Referred, Patient 04/09/24 Virgilio Munguia MD [address] [place] [phone] [email or web address] Medical [email or web address] 07/31/24 Additional Source Comments The information contained in this document represents components of the legal health record. It is not the complete legal health record.[facility]
--- OUTSIDE RECORDS SUMMARY | 2025-09-10 18:13 | XMS_ITS | Encounter Summary ---
Author Organization [facility] Address [address] [facility] [address] [place] [address] Phone Care Team Providers Care Kitchen Steward/Stewardess Name Role Phone Prince Quinones MD Primary Care Provider Self-Referred, Patient Unavailable Unavailab Virgilio Knowles MD Unavailable Encounter Details Date Type Department Care Team (Late st Contact Info) Description 07/31/2024 Procedure Pass [facility]' Electric Operator Center [address] [facility] [address] [place] [address] Social History Tobacco Use Types Packs/Day Years [...] high school, GED, job training, learning the Greenlandic language, technical skills, or developing parenting skills)? [...] on filedocumented in this encounter Care Teams Kitchen Steward/Stewardess Relationship Specialty Start Date End Date Prince Quinones MD [facility] [place] [address] PCP - General Internal Medicine 04/09/24 Self-Referred, Patient 04/09/24 Virgilio Munguia MD [address] [place] [id number] [email or web address] 07/31/24 documented as of this encounter Additional Source Comments The information contained in this document represents components of the legal health record. It is not the complete legal health record.[facility]
== END 2025-09-10 14:30 | disposition home or self-care (01) ==
LOC: HO.HOS 13:41
PROVIDERS: Visit Provider Orthopaedic Surgery
DX: S52.502A Unspecified fracture of the lower end of left radius, initial encounter for closed fracture (principal); J45.909 Unspecified asthma, uncomplicated; I63.9 Cerebral infarction, unspecified
CPT/HCPCS: 99024

== ENCOUNTER → 2025-09-10 13:51 | Outpatient (BNV) | payer BC, SELFPAY | PROVIDERS: Visit Provider Radiology Diagnostic Radiology | DX: S52.502D Unspecified fracture of the lower end of left radius, subsequent encounter for closed fracture with routine healing (principal); M85.842 Other specified disorders of bone density and structure, left hand | CPT/HCPCS: 73110 ==